=== PATIENT | male | born 1985 | race Caucasian/White ===

== ENCOUNTER 2020-03-31 21:22 | Outpatient (CLI) | payer SELFPAY | END 2020-03-31 21:23 | disposition critical access hospital (66) | LOC: EMS 21:22 | PROVIDERS: ATTEND Surgery | DX: R53.83 Other fatigue (principal); R50.9 Fever, unspecified; R19.7 Diarrhea, unspecified; R06.02 Shortness of breath; K92.1 Melena; R42 Dizziness and giddiness; R51 Headache; R20.2 Paresthesia of skin | CPT/HCPCS: A0425; A0429 ==

== ENCOUNTER 2020-03-31 21:41 | Inpatient (IN) | payer SELFPAY ==
--- NOTE | 2020-03-31 21:46 | ED Physician Documentation ---
History of Present Illness - Stated complaint Stated Complaint: SICK - History obtained from History obtained from: Patient, Family - Additonal information Additional information: 34-year-old male arrives by ambulance after feeling sick for 2 weeks. Patient presents with his the reports that he has become too weak to speak and then he was complaining of right-sided numbness first responders report a negative stroke scale. He is afebrile on arrival he reports diarrhea and fevers at home and that is been at home for the last 2 weeks he reports he is otherwise healthy and up-to-date on all of his shots. Review of Systems Constitutional: reports: Fever, Chills, Myalgias, Fatigue, Weight Loss, Sweats Eyes: reports: Reviewed and negative Ears: reports: Reviewed and negative Nose: reports: Reviewed and negative Throat: reports: Reviewed and negative Cardiac: reports: Reviewed and negative Respiratory: reports: Reviewed and negative GI: reports: Nausea, Vomiting, Diarrhea, Reviewed and negative : reports: Reviewed and negative Skin: reports: Reviewed and negative Musculoskeletal: reports: Reviewed and negative Neurologic: reports: Generalized weakness Psychiatric: reports: Reviewed and negative Endocrine: reports: Reviewed and negative Immunocompromised: reports: Reviewed and negative PD PAST MEDICAL HISTORY - Present Medications Home Medications: Ambulatory Orders Medication Instructions Recorded Confirmed No Known Home Medications 03/31/20 03/31/20 - Allergies Allergies/Adverse Reactions: Allergies Allergy/AdvReac Type Severity Reaction Status Date / Time No Known Drug Allergies Allergy Verified 03/31/20 22:29 PD ED PE NORMAL - Vitals Vital signs reviewed: Yes - General General: Alert and oriented X 3, No acute distress, Well developed/nourished - HEENT HEENT: Atraumatic, PERRL, EOMI, Ears normal, Moist mucous membranes, Dentition benign - Neck Neck: Supple, no meningeal sign, No adenopathy, Thyroid normal, No JVD, No bruit - Cardiac Cardiac: RRR, No murmur, Strong equal pulses - Respiratory Respiratory: No respiratory distress, Clear bilaterally - Abdomen Abdomen: Normal bowel sounds, Soft, Non tender, Non distended, No organomegaly - Derm Derm: Normal color, Warm and dry, No rash - Extremities Extremities: No deformity, No tenderness to palpate, Normal ROM s pain, No edema, No calf tenderness / cord - Neuro Neuro: Alert and oriented X 3, 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, No motor deficit, No sensory deficit, Normal speech, Other (NIH 0) - Psych Psych: Normal mood, Normal affect Results - Vitals Vitals: Vital Signs - 24 hr 03/31/20 04/01/20 04/01/20 21:47 00:20 00:35 Temperature 37.3 C 37.2 C 37.0 C Heart Rate 115 H 100 108 H Respiratory 18 17 18 Rate Blood Pressure 109/66 109/65 108/73 O2 Saturation 100 04/01/20 04/01/20 04/01/20 01:17 01:30 01:35 Temperature 36.9 C Heart Rate 105 H 96 Respiratory 16 18 15 Rate Blood Pressure 107/65 O2 Saturation 100 04/01/20 04/01/20 04/01/20 03:00 03:24 03:42 Temperature 37.1 C 37.2 C Heart Rate 87 91 88 Respiratory 17 18 20 Rate Blood Pressure 106/65 99/65 107/62 O2 Saturation 100 04/01/20 04/01/20 04/01/20 04:00 04:28 06:00 Temperature 37.1 C Heart Rate 82 83 84 Respiratory 16 16 14 Rate Blood Pressure 97/65 101/69 98/71 O2 Saturation 97 100 04/01/20 04/01/20 06:54 07:09 Temperature 36.7 C 36.8 C Heart Rate 78 76 Respiratory 14 16 Rate Blood Pressure 102/70 99/67 O2 Saturation Oxygen O2 Source Room air - Labs Labs: Microbiology 04/01/20 00:30 Occult Blood - Final Stool Laboratory Tests 03/31/20 03/31/20 03/31/20 21:55 21:55 21:55 WBC 8.1 RBC 1.25 L Hgb 3.3 L* Hct 11.3 L* MCV 90.4 MCH 26.4 L MCHC 29.2 L RDW 14.6 Plt Count 490 H MPV 9.3 Neut # (Auto) 4.3 Lymph # (Auto) 2.3 [place] # (Auto) 1.0 Eos # (Auto) 0.3 Baso # (Auto) 0.0 Absolute Nucleated RBC 0.38 Nucleated RBC % 4.7 Manual Slide Review Indicated Platelet Estimate INCREASED (>450,000) Platelet Morphology NORMAL APPEARANCE RBC Morph Micro Appear 1+ MICROCYTOSIS ESR PT 14.4 H INR 1.3 H APTT 23.7 L Sodium 134 L Potassium 3.4 L Chloride 103 Carbon Dioxide 21 Anion Gap 10.0 BUN 15 Creatinine 0.9 Estimated GFR (MDRD) 97 Glucose 111 H Lactic Acid Calcium 8.1 L Magnesium 2.4 Total Bilirubin 0.3 Direct Bilirubin 0.1 AST 18 ALT 19 Alkaline Phosphatase 43 Ammonia Total Creatine Kinase 61 Troponin I High Sens C-React Prot High Sens B-Natriuretic Peptide Total Protein 5.7 L Albumin 2.6 L Globulin 3.1 Lipase 27 TSH Urine Color Urine Clarity Urine pH Ur Specific Jenners Urine Protein Urine Glucose (UA) Urine Ketones Urine Occult Blood Urine Nitrite Urine Bilirubin Urine Urobilinogen Ur Leukocyte Esterase Ur Microscopic Review Urine Culture Comments Salicylates < 6.0 Urine Opiates Screen Ur Oxycodone Screen Urine Methadone Screen Ur Propoxyphene Screen Acetaminophen < 10 L Ur Barbiturates Screen Ur Tricyclics Screen Ur Phencyclidine Scrn Ur Amphetamine Screen U Methamphetamines Scrn U Benzodiazepines Scrn Urine Cocaine Screen U Cannabinoids Screen Ethyl Alcohol < 5.0 Influenza A (Rapid) Influenza B (Rapid) Group A Strep Rapid Blood Type Blood Type Recheck Antibody Screen Crossmatch IS Only 03/31/20 03/31/20 03/31/20 21:55 21:55 21:55 WBC RBC Hgb Hct MCV MCH MCHC RDW Plt Count MPV Neut # (Auto) Lymph # (Auto) [place] # (Auto) Eos # (Auto) Baso # (Auto) Absolute Nucleated RBC Nucleated RBC % Manual Slide Review Platelet Estimate Platelet Morphology RBC Morph Micro Appear ESR PT INR APTT Sodium Potassium Chloride Carbon Dioxide Anion Gap BUN Creatinine Estimated GFR (MDRD) Glucose Lactic Acid 1.1 Calcium Magnesium Total Bilirubin Direct Bilirubin AST ALT Alkaline Phosphatase Ammonia Total Creatine Kinase Troponin I High Sens 3.8 C-React Prot High Sens B-Natriuretic Peptide 127 H Total Protein Albumin Globulin Lipase TSH Urine Color Urine Clarity Urine pH Ur Specific Jenners Urine Protein Urine Glucose (UA) Urine Ketones Urine Occult Blood Urine Nitrite Urine Bilirubin Urine Urobilinogen Ur Leukocyte Esterase Ur Microscopic Review Urine Culture Comments Salicylates Urine Opiates Screen Ur Oxycodone Screen Urine Methadone Screen Ur Propoxyphene Screen Acetaminophen Ur Barbiturates Screen Ur Tricyclics Screen Ur Phencyclidine Scrn Ur Amphetamine Screen U Methamphetamines Scrn U Benzodiazepines Scrn Urine Cocaine Screen U Cannabinoids Screen Ethyl Alcohol Influenza A (Rapid) Influenza B (Rapid) Group A Strep Rapid Blood Type Blood Type Recheck Antibody Screen Crossmatch IS Only 03/31/20 03/31/20 03/31/20 21:55 21:55 21:55 WBC RBC Hgb Hct MCV MCH MCHC RDW Plt Count MPV Neut # (Auto) Lymph # (Auto) [place] # (Auto) Eos # (Auto) Baso # (Auto) Absolute Nucleated RBC Nucleated RBC % Manual Slide Review Platelet Estimate Platelet Morphology RBC Morph Micro Appear ESR PT INR APTT Sodium Potassium Chloride Carbon Dioxide Anion Gap BUN Creatinine Estimated GFR (MDRD) Glucose Lactic Acid Calcium Magnesium Total Bilirubin Direct Bilirubin AST ALT Alkaline Phosphatase Ammonia 11.0 Total Creatine Kinase Troponin I High Sens C-React Prot High Sens B-Natriuretic Peptide Total Protein Albumin Globulin Lipase TSH 2.17 Urine Color Urine Clarity Urine pH Ur Specific Jenners Urine Protein Urine Glucose (UA) Urine Ketones Urine Occult Blood Urine Nitrite Urine Bilirubin Urine Urobilinogen Ur Leukocyte Esterase Ur Microscopic Review Urine Culture Comments Salicylates Urine Opiates Screen Ur Oxycodone Screen Urine Methadone Screen Ur Propoxyphene Screen Acetaminophen Ur Barbiturates Screen Ur Tricyclics Screen Ur Phencyclidine Scrn Ur Amphetamine Screen U Methamphetamines Scrn U Benzodiazepines Scrn Urine Cocaine Screen U Cannabinoids Screen Ethyl Alcohol Influenza A (Rapid) Influenza B (Rapid) Group A Strep Rapid Blood Type Blood Type Recheck O POSITIVE Antibody Screen Crossmatch IS Only 03/31/20 03/31/20 03/31/20 22:23 22:23 22:30 WBC RBC Hgb Hct MCV MCH MCHC RDW Plt Count MPV Neut # (Auto) Lymph # (Auto) [place] # (Auto) Eos # (Auto) Baso # (Auto) Absolute Nucleated RBC Nucleated RBC % Manual Slide Review Platelet Estimate Platelet Morphology RBC Morph Micro Appear ESR PT INR APTT Sodium Potassium Chloride Carbon Dioxide Anion Gap BUN Creatinine Estimated GFR (MDRD) Glucose Lactic Acid Calcium Magnesium Total Bilirubin Direct Bilirubin AST ALT Alkaline Phosphatase Ammonia Total Creatine Kinase Troponin I High Sens C-React Prot High Sens B-Natriuretic Peptide Total Protein Albumin Globulin Lipase TSH Urine Color Urine Clarity Urine pH Ur Specific Jenners Urine Protein Urine Glucose (UA) Urine Ketones Urine Occult Blood Urine Nitrite Urine Bilirubin Urine Urobilinogen Ur Leukocyte Esterase Ur Microscopic Review Urine Culture Comments Salicylates Urine Opiates Screen Ur Oxycodone Screen Urine Methadone Screen Ur Propoxyphene Screen Acetaminophen Ur Barbiturates Screen Ur Tricyclics Screen Ur Phencyclidine Scrn Ur Amphetamine Screen U Methamphetamines Scrn U Benzodiazepines Scrn Urine Cocaine Screen U Cannabinoids Screen Ethyl Alcohol Influenza A (Rapid) Negative Influenza B (Rapid) Negative Group A Strep Rapid Negative Blood Type O POSITIVE Blood Type Recheck Antibody Screen NEGATIVE Crossmatch IS Only See Detail 03/31/20 03/31/20 04/01/20 23:20 23:50 04:35 WBC RBC Hgb 4.4 L* Hct MCV MCH MCHC RDW Plt Count MPV Neut # (Auto) Lymph # (Auto) [place] # (Auto) Eos # (Auto) Baso # (Auto) Absolute Nucleated RBC Nucleated RBC % Manual Slide Review Platelet Estimate Platelet Morphology RBC Morph Micro Appear ESR PT INR APTT Sodium Potassium Chloride Carbon Dioxide Anion Gap BUN Creatinine Estimated GFR (MDRD) Glucose Lactic Acid Calcium Magnesium Total Bilirubin Direct Bilirubin AST ALT Alkaline Phosphatase Ammonia Total Creatine Kinase Troponin I High Sens C-React Prot High Sens B-Natriuretic Peptide Total Protein Albumin Globulin Lipase TSH Urine Color YELLOW Urine Clarity CLEAR Urine pH 8.5 H Ur Specific Jenn[place] 1.010 Urine Protein NEGATIVE Urine Glucose (UA) NEGATIVE Urine Ketones NEGATIVE Urine Occult Blood NEGATIVE Urine Nitrite NEGATIVE Urine Bilirubin NEGATIVE Urine Urobilinogen 0.2 (NORMAL) Ur Leukocyte Esterase NEGATIVE Ur Microscopic Review NOT INDICATED Urine Culture Comments NOT INDICATED Salicylates Urine Opiates Screen NEGATIVE Ur Oxycodone Screen NEGATIVE Urine Methadone Screen NEGATIVE Ur Propoxyphene Screen NEGATIVE Acetaminophen Ur Barbiturates Screen NEGATIVE Ur Tricyclics Screen NEGATIVE Ur Phencyclidine Scrn NEGATIVE Ur Amphetamine Screen NEGATIVE U Methamphetamines Scrn NEGATIVE U Benzodiazepines Scrn NEGATIVE Urine Cocaine Screen NEGATIVE U Cannabinoids Screen NEGATIVE Ethyl Alcohol Influenza A (Rapid) Influenza B (Rapid) Group A Strep Rapid Blood Type Blood Type Recheck Antibody Screen Crossmatch IS Only 04/01/20 04/01/20 06:10 06:10 WBC RBC Hgb Hct MCV MCH MCHC RDW Plt Count MPV Neut # (Auto) Lymph # (Auto) [place] # (Auto) Eos # (Auto) Baso # (Auto) Absolute Nucleated RBC Nucleated RBC % Manual Slide Review Platelet Estimate Platelet Morphology RBC Morph Micro Appear ESR 79 H PT INR APTT Sodium Potassium Chloride Carbon Dioxide Anion Gap BUN Creatinine Estimated GFR (MDRD) Glucose Lactic Acid Calcium Magnesium Total Bilirubin Direct Bilirubin AST ALT Alkaline Phosphatase Ammonia Total Creatine Kinase Troponin I High Sens C-React Prot High Sens 30.3 B-Natriuretic Peptide Total Protein Albumin Globulin Lipase TSH Urine Color Urine Clarity Urine pH Ur Specific Jenners Urine Protein Urine Glucose (UA) Urine Ketones Urine Occult Blood Urine Nitrite Urine Bilirubin Urine Urobilinogen Ur Leukocyte Esterase Ur Microscopic Review Urine Culture Comments Salicylates Urine Opiates Screen Ur Oxycodone Screen Urine Methadone Screen Ur Propoxyphene Screen Acetaminophen Ur Barbiturates Screen Ur Tricyclics Screen Ur Phencyclidine Scrn Ur Amphetamine Screen U Methamphetamines Scrn U Benzodiazepines Scrn Urine Cocaine Screen U Cannabinoids Screen Ethyl Alcohol Influenza A (Rapid) Influenza B (Rapid) Group A Strep Rapid Blood Type Blood Type Recheck Antibody Screen Crossmatch IS Only PD MEDICAL DECISION MAKING - ED course Complexity details: reviewed results, re-evaluated patient, considered differential (Weakness. anemia. infectious. OD. renal failure. liver failure. ), d/w patient, d/w family ED course: Upon further evaluation patient states that he has been having abdominal pain and bloody diarrhea for months.He reports a family history of Crohn's disease.Patient's work-up is consistent withUnfortunately we do not have gastroenterology or any available ICU beds here at our hospital so this patient will be have to be transferred to higher level of care I have attempted to transfer this patient to [facility] ulcerative colitis. Patient will be transfused 2 units of blood [facility] in [facility] and none of them have any beds.Patient will remain in our emergency department pending transfer to higher level of care. - Consults Consults: Other (07: 14 am. made multiple patient to transfer this patient to hospital with ICU beds or step down beds, none available. spoke with surgeon dr. deleon who is willing to evaluatet this patient. spoke with dr. reese who will likely be able to admit this patient to our hospital. ) - Critical Care Time(min): 30 Time Includes: Direct patient care, Review records, Reassess patient, Document care, Coordinate care, Medical consult, Family consult for tx jul Data interpretation: CXR Procedures included in critical care time: Peripheral IV Procedures excluded from critical care time: EKG Departure - Departure Disposition: 66 [facility] DC/Xfer Clinical Impression: Colitis Anemia Qualifiers: Anemia type: other cause Other causes of anemia: other cause, not classified Qualified Code(s): D64.89 - Other specified anemias Condition: Stable
[2020-03-31] MEDS ORDERED: SODIUM CHLORIDE 0.9% 1,000 ML IV STA (22:06)
[2020-03-31 22:26] LABS: BASOPHILS % (AUTO) 0.1 %; EOSINOPHILS # (AUTO) 0.3 10^3/uL (0.0-0.7); EOSINOPHILS % (AUTO) 3.2 %; LYMPHOCYTES # (AUTO) 2.3 10^3/uL (1.5-3.5); LYMPHOCYTES % (AUTO) 27.7 %; MEAN CORPUSCULAR HEMOGLOBIN 26.4 pg (27.0-31.0); MEAN CORPUSCULAR HGB CONC 29.2 g/dL (32.0-36.0); MEAN CORPUSCULAR VOLUME 90.4 fL (80.0-94.0); MEAN PLATELET VOLUME 9.3 fL (7.4-11.4); MONOCYTES % (AUTO) 11.8 %; NEUTROPHILS # (AUTO) 4.3 10^3/uL (1.5-6.6); PLT - PLATELET COUNT 490 10^3/uL (130-450); RED BLOOD COUNT 1.25 10^6/uL (4.70-6.10); RED CELL DISTRIBUTION WIDTH 14.6 % (12.0-15.0); WHITE BLOOD COUNT 8.1 x10^3/uL (4.8-10.8)
[2020-03-31 22:29] LABS: HGB - HEMOGLOBIN 3.3 g/dL (14.0-18.0); INR 1.3 (0.8-1.2); PT - PROTHROMBIN TIME 14.4 secs (9.9-12.6)
[2020-03-31 22:36] LABS: PARTIAL THROMBOPLASTIN TIME 23.7 secs (24.9-33.3)
[2020-03-31 22:41] LABS: ACETAMINOPHEN < 10 ug/mL (10-30); ALBUMIN 2.6 g/dL (3.2-5.5); ALKALINE PHOSPHATASE 43 IU/L (42-121); ALT ALANINE AMINOTRANSFERASE 19 IU/L (10-60); AST ASPARTATE AMINOTRANSFERASE 18 IU/L (10-42); BILIRUBIN,DIRECT 0.1 mg/dL (0.1-0.5); BILIRUBIN,TOTAL 0.3 mg/dL (0.2-1.0); BUN - BLOOD UREA NITROGEN 15 mg/dL (6-20); CALCIUM 8.1 mg/dL (8.5-10.3); CARBON DIOXIDE - CO2 21 mmol/L (21-32); CHLORIDE 103 mmol/L (101-111); CK- CREATINE KINASE 61 IU/L (22-269); CREATININE 0.9 mg/dL (0.6-1.2); GLUCOSE 111 mg/dL (70-100); LIPASE 27 U/L (22-51); MAGNESIUM 2.4 mg/dL (1.7-2.8); SALICYLATE < 6.0 mg/dL; SODIUM 134 mmol/L (135-145); TOTAL PROTEIN 5.7 g/dL (6.7-8.2)
[2020-03-31 22:56] LABS: PLATELET ESTIMATE, MANUAL INCREASED (>450,000) (NORMAL); PLATELET MORPHOLOGY NORMAL APPEARANCE (NORMAL)
[2020-03-31 23:01] LABS: RAPID STREP SCREEN Negative (Negative)
[2020-03-31] MEDS ORDERED: IOVERSOL 320 100 ML VIAL IVP ONE (23:11)
[2020-03-31 23:26] LABS: BILIRUBIN,URINE NEGATIVE (NEGATIVE); GLUCOSE, URINE (UA) NEGATIVE (NEGATIVE); KETONES,URINE (UA) NEGATIVE (NEGATIVE); LEUKOCYTE ESTERASE, URINE NEGATIVE (NEGATIVE); NITRITE,URINE NEGATIVE (NEGATIVE); OCCULT BLOOD,URINE NEGATIVE (NEGATIVE); PH,URINE 8.5 PH (5.0-7.5); PROTEIN,URINE NEGATIVE (NEGATIVE); UROBILINOGEN,URINE 0.2 (NORMAL) E.U./dL (NORMAL)
[2020-03-31 23:29] LABS: CLARITY,URINE CLEAR (CLEAR)
[2020-04-01 00:04] LABS: MUDS CUTOFF CONCENTRATIONS CUTOFF CONC BELOW:
[2020-04-01 00:13] LABS: AMPHETAMINE SCREEN,URINE NEGATIVE (NEGATIVE); BENZODIAZEPINES SCREEN, URINE NEGATIVE (NEGATIVE); COCAINE SCREEN URINE NEGATIVE (NEGATIVE); METHADONE SCREEN, URINE NEGATIVE (NEGATIVE); METHAMPHETAMINES SCREEN, URINE NEGATIVE (NEGATIVE); OPIATE SCREEN, URINE NEGATIVE (NEGATIVE); OXYCODONE SCREEN, URINE NEGATIVE (NEGATIVE); PROPOXYPHENE SCREEN, URINE NEGATIVE (NEGATIVE); TRICYCLIC ANTIDEPRESSANT,URINE NEGATIVE (NEGATIVE)
[2020-04-01] MEDS ORDERED: IOVERSOL 320 100 ML VIAL IVP ONE (01:08)
[2020-04-01] MEDS ORDERED: ACETAMINOPHEN 1,000 MG/100 ML 100 ML IV ONE (03:00)
[2020-04-01] MEDS ORDERED: MORPHINE 2 MG/ML CARPUJECT IVP STA (03:47)
[2020-04-01] MEDS ORDERED: ONDANSETRON 4 MG/2 ML VIAL IVP STA (03:47)
[2020-04-01] MEDS ORDERED: methylPREDNISolone SUCCINATE 125 MG/2 ML VIAL IVP STA (04:54)
[2020-04-01] MEDS ORDERED: MORPHINE 2 MG/ML CARPUJECT IVP PRN (07:15)
[2020-04-01] MEDS ORDERED: ONDANSETRON ODT 4 MG TABLET TL PRN (07:15)
[2020-04-01] MEDS ORDERED: ONDANSETRON 4 MG/2 ML VIAL IVP PRN (07:15)
--- NOTE | 2020-04-01 08:11 | CT Report ---
PROCEDURE: HEAD WO INDICATIONS: right sided numbness TECHNIQUE: Noncontrast 4.5 mm thick angled axial sections acquired from the foramen magnum to the vertex. For r adiation dose reduction, the following was used: automated exposure control, adjustment of mA and/or kV according to patient size. COMPARISON: None. FINDINGS: Image quality: Excellent. CSF spaces: Basal cisterns are patent. No extra-axial fluid collections. Ventricles are normal in size and shape. Brain: No midline shift. No intracranial masses or hemorrhage. Dumont-white matter interface is norm al. Skull and face: Calvarium and visualized facial bones are intact, without suspicious lesions. Sinuses: Visualized sinuses and mastoids are clear. IMPRESSION: 1. No acute intracranial process. The above findings are concordant with preliminary report. Reviewed by: Joselyn Smith MD on 04/01/2020 8:10 AM PDT Approved by: Joselyn Smith MD on 04/01/2020 8:10 AM PDT Station ID: [id number]
--- NOTE | 2020-04-01 08:31 | CT Report ---
PROCEDURE: Abdomen/Pelvis W INDICATIONS: abd pain CONTRAST: IV CONTRAST: Optiray 320 ml: 100 PO CONTRAST: *NO PO CONTRAST TECHNIQUE: After the administration of contrast, 5 mm thick sections acquired from the diaphragms to the sym physis. 5 mm thick coronal and sagittal reformats were acquired. For radiation dose reduction, the following was used: automated exposure control, adjustment of mA and/or kV according to patient size . COMPARISON: None. FINDINGS: Image quality: Excellent. ABDOMEN: Lung bases: Lung bases are clear. Heart size is normal. Solid organs: Liver and spleen are normal in size and enhancement. Gallbladder appears normal Bili nasir system is non dilated. Pancreas enhances normally. No adrenal nodules. Kidneys demonstrate nor mal size and enhancement, without hydronephrosis. Peritoneum and bowel: Bowel loops demonstrate normal wall thickness and caliber. No free fluid or a ir. Please see pelvic section below regarding active inflammation involving the sigmoid colon and re ctum areas. Nodes and vessels: No retroperitoneal or mesenteric adenopathy by size criteria. Aorta and inferior vena cava are normal in size. Miscellaneous: No ventral hernias. PELVIS: Genitourinary: Bladder wall thickness is normal. Miscellaneous: No inguinal hernias or adenopathy. There is abnormal mucosal thickening and enhancem ent, and also mural thickening involving the sigmoid colon and extending contiguously into the rectum . Fluid within the sigmoid and rectum is present, and a pericolonic/intramural abscess is not identif ied. More superiorly no definite colitis is found. There is bilateral mild colonic obstipation. Bones: No suspicious bony lesions. No vertebral body compression fractures. IMPRESSION: The sigmoid colon and rectum show contiguous inflammatory changes that are moderate in s everity. Fluid within these portions of the colon is present, and a definite pericolonic or intramura l abscess is not found. Please note that if there is a clinical concern for presence of intramural ab scess MR scanning with contrast targeted to the rectum and sigmoid colon may be warranted. Mild colonic obstipation elsewhere on the right and left. Reviewed by: Claudio Granados MD on 04/01/2020 8:30 AM PDT Approved by: Claudio Granados MD on 04/01/2020 8:30 AM PDT Station ID: [id number]
--- NOTE | 2020-04-01 09:22 | XRAY Report ---
PROCEDURE: Chest 1 View X-Ray INDICATIONS: sob TECHNIQUE: One view of the chest was acquired. COMPARISON: None FINDINGS: Surgical changes and devices: None. Lungs and pleura: No pleural effusions or pneumothorax. Lungs are clear. Mediastinum: Mediastinal contours appear normal. Heart size is normal. Bones and chest wall: No suspicious bony lesions. Overlying soft tissues appear unremarkable. IMPRESSION: No acute pulmonary process. Reviewed by: Joselyn Smith MD on 04/01/2020 9:20 AM PDT Approved by: Joselyn Smith MD on 04/01/2020 9:20 AM PDT Station ID: [id number]
--- NOTE | 2020-04-01 10:41 | PHARMACY PROGRESS NOTE ---
- Best Possible Medication History Admit Date and Time: 04/01/20 0715 Processed by: Pharmacy Medication History completed: Yes Patient Interview: Completed Secondary Source(s): Pharmacy records (PATIENT INTERVIEWED BY [employer] MACHINE. PATIENT ABLE TO CONFIRM HOME MEDICATIONS. PATIENT ONLY TAKES OTCs AT HOME ), Insurance records As the person ultimately responsible for medication therapy, providers are able to order a medication from an existing home medication list in [facility] via the "Reconcile Routine" prior to Confirmation of that medication by systems support specialist. Such practice is discouraged except when the physician, in their clinical judgment, deems that a medical need exists for a medication without regard to previous use.
[2020-04-01] MEDS: PANTOPRAZOLE 40 MG VIAL IVP SCH (11:01)
[2020-04-01] MEDS: SODIUM CHLORIDE 0.9% 1,000 ML IV SCH ×2 (11:01→20:50)
[2020-04-01] MEDS: SODIUM CHLORIDE FLUSH 0.9% 10 ML SYRINGE IVP SCH ×2 (11:02→16:16)
--- NOTE | 2020-04-01 12:27 | HISTORY & PHYSICAL EXAMINATION ---
Chief Complaint - Chief Complaint Chief Complaint: R sided numbness/tingling spread to face, BRBPR History of Present Illness - Admitted From Admitted From:: home via EMS - History Obtained From Records Reviewed: [facility] History obtained from: patient Exam Limitations: none - History of Present Illness HPI Comment/Other: Patient is a 34yo male admitted from home via EMS through the ED for severe anemia and bright red blood per rectum. The patient has a history significant for hemorrhoids and abdominal cramping with stooling starting at the age of 16. Over the last couple of months the patient has noted a change in his diet to be less frequent and less healthy, which he attributes to a flare in his hemorrhoids. For the past month he has noted increasing blood in the toilet after having a BM, describing it to be raissa, bright red and fills the toilet. The patient also describes a constant dull aching across his lower abdomen which intensifies to sharp cramping while defecating. He reports having to strain to have a BM. In this past two weeks the patient has been more constipated, having only one BM every 2-3 days when normally he has one normal soft formed BM daily. Recently in the beginning of February he had dental work done, after which he was prescribed opioids which he attributes to initiating his constipation. He reports constant hemorrhoids for which he has to use his finger to replace them into his rectum after each BM. Two weeks ago he began to experience headaches which were constant and unrelieved with medication, intensifying gradually over the past two weeks. He became feverish approximately 1 week ago with the highest temp being 104 (measured at home). He attempted to treat this with ice packs and tylenol and was successful. Yesterday he began to feel numbness and tingling in his right arm, spreading to his chest and eventually his face, at that point he felt it necessary to call EMS. PE significant for fullness in abdomen, generalized pallor with reduced cap refill in fingers and toes, and dry mucous membranes. History - Past Medical History Cardiovascular: reports: None Respiratory: reports: None Neuro: reports: None Endocrine/Autoimmune: reports: None GI: reports: Hemorrhoids (DX at age 16) : reports: None HEENT: reports: None Psych: reports: None Musculoskeletal: reports: None Derm: reports: None MRSA Hx?: No Other Past Medical History: Abdominal cramping with defecating beginning at age 16 - Family & Social History Family History: Mother: COPD/Emphysema, Father: , Brother: Alive and Well Family History Comment/Other: Mother-alive, hx of ulcerative colitis, polyps and COPD. Father-passed from lung ca at age 73 in 2017. Brother alive and well, lives in [place] Living arrangement: At home Living Situation: With spouse/s.o. Social History Notes: The patient lives at home with , recently , no children. 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 Reports not having consumed any alcohol in past month, prior to that he would have an occasional drink. Denies any recent tobacco use, previously would use a friends vape pen at social gatherings, has not done this in 2 years. - Substance History Use: Uses substance without health or social issues: NONE - POLST Patient has POLST: No POLST Status: Full Code Meds/Allgy - Home Medications Home Medications: Ambulatory Orders Medication Instructions Recorded Confirmed Acetaminophen [Tylenol Extra 500 mg PO PRN PRN 04/01/20 04/01/20 Strength] Cholecalciferol (Vitamin D3) 25 mcg PO DAILY 04/01/20 04/01/20 [Vitamin D3] Echinacea Purp [place] Rt 62.5 mg PO DAILY 04/01/20 04/01/20 [Echinacea Extract 62.5 mg Cap] Multivit-Minerals/Folic Acid 1 tab PO DAILY 04/01/20 04/01/20 [Adult One Daily Multivit Tab] [place]-3 Fatty Acids [Fish Oil 1,000 mg PO DAILY 04/01/20 04/01/20 Concentrate] - Allergies Allergies/Adverse Reactions: Allergies Allergy/AdvReac Type Severity Reaction Status Date / Time No Known Drug Allergies Allergy Verified 03/31/20 22:29 Review of Systems - Constitutional Constitutional: reports: Fatigue, Fever (highest self-recorded at home: 104), Weakness - Eyes Eyes: reports: Blurred vision (occasional blurred vision when severe weakness set in about a week ago.) - Cardiovascular Cariovascular: reports: Lightheadedness (reported in association with his weakness over past week) - Respiratory Respiratory: reports: SOB with exertion (Began 1 week ago) - Gastrointestinal Gastrointestinal: reports: Abdominal pain, Constipation, Rectal bleeding (Pain is a dull aching which signifies the need to defecate with increasing in severity to cramping while having BM. Recently having constipation x1 week, bright red blood per rectum began over a month ago and has increased to raissa blood in gross amounts.), Bloody stools - Neurological Neurological: reports: Numbness (reports recent numbness and tingling in his right arm, spreading to his chest and face prompting to call ems, however has resolved at time of assessment.) - All Other Systems All Other Systems: reports: Reviewed and negative Prior Level of Functionality: Prior to the new onset weakness and fatigue had no physical deficits, independent with ADLS, did not require any assistance to ambulate. Exam - Vital Signs Reviewed Vital Signs: Yes Vital Signs: Vital Signs x48h Temp Pulse Pulse Resp BP BP Pulse Ox 04/01/20 10:20 37.0 C 75 15 117/66 98 04/01/20 09:59 79 14 105/69 100 04/01/20 09:57 37.4 C 75 14 94/58 L 04/01/20 09:03 37.4 C 77 15 103/70 04/01/20 08:26 37.2 C 78 16 109/74 04/01/20 08:18 37.1 C 86 14 104/70 04/01/20 08:14 37.1 C 74 14 104/70 04/01/20 07:59 36.7 C 76 18 110/69 04/01/20 07:46 36.8 C 76 12 110/74 100 04/01/20 07:09 36.8 C 76 16 99/67 04/01/20 06:54 36.7 C 78 14 102/70 04/01/20 06:00 84 14 98/71 100 04/01/20 04:28 37.1 C 83 16 101/69 04/01/20 04:00 82 16 97/65 97 04/01/20 03:42 37.2 C 88 20 107/62 - Physical Exam General Appearance: positive: No acute distress, Alert Eyes Bilateral: positive: Normal inspection ENT: positive: Dry mucous membranes Neck: positive: Nml inspection Respiratory: positive: Chest non-tender, No respiratory distress, Breath sounds nml Cardiovascular: positive: Regular rate & rhythm, No murmur, No gallop Peripheral Pulses: positive: 2+ Abdomen: positive: Nml bowel sounds, Tenderness (mild dullness in RLQ increased with palpitation) Skin: positive: Pallor (generalized pallow, lips dry/pale.) Extremities: positive: Non-tender, Full ROM, Nml appearance Neurologic/Psychiatric: positive: Oriented x3, Motor nml Conclusion/Plan - Problem List (1) Anemia Conclusion/Plan: Ddx: Mechanical vs non-mechanical anemia (blood loss induced anemia vs. hemolytic anemia vs. inflammation induced anemia vs. B12/folate/iron deficiency anemia) The patient's hgb was 3.3 upon arrival to ED, aline to 4.4 after 4 units of PRBCs. RBC count is 1.25, while MCV is 90.4. At this time it is undetermined if anemia is from acute blood loss or from underlying disease process. Pt appears generally pale with dry mucous membranes, no bruising or open wounds noted. Denies any history of chronic disease with the exception of hemorrhoids. Family hx of UC. Reports severe weakness and SOB upon exertion. Vital signs WNL, is not requiring supplemental oxygen at this time. Otherwise a generally healthy individual prior to this event. Plan: -Transfuse 2 more uPRBCs -Recheck CBC after transfusion complete -Obtain anemia panel: retic count, folate, B12 -Monitor vitals for s/s of worsening anemia or increased oxygen requirements Qualifiers: Anemia type: other cause Other causes of anemia: other cause, not classified Qualified Code(s): D64.89 - Other specified anemias (2) Bright red blood per rectum Conclusion/Plan: Ddx:external hemorrhoids, internal hemorrhoids, ulcerative colitis, IBD Pt reports raissa gross amounts of blood with each stooling which began over a month ago. He also reports to occasionally pass some clots. His stool he reports to be mostly formed, otherwise is difficult to visualize due to amount of blood. He was diagnosed with external hemorrhoids at the age of 16. In his adult years, when hemorroids are bad he reports having to digitally push them into his rectum after defecating. There is a history of UC and polyps from his mother. CT of abd and pelvis show significant inflammation in the sigmoid and rectum that is co ntinuous and moderate in severity. This patient will need a colonoscopy to determine etiology and source of his bleeding. Plan: -consult surgery for colonoscopy -NPO -Monitor i/os for excess volume loss -monitor vitals for s/s of excessive volume loss (3) Abdominal pain Conclusion/Plan: Pt describes the pain as a continuous dull aching across his lower abdomen signifying he needs to have a BM. However that pain intensifies to a severe cramping when defecating. Narcotics should be avoided due to his recent reports of constipation which may have triggers his symptoms. NSAIDS should be avoided to prevent further GI irritation. Plan: -Protonix 40mg IVP -Acetaminophen 650mg PO PRN q4hr for pain -NPO Qualifiers: Abdominal location: lower abdomen, unspecified Qualified Code(s): R10.30 - Lower abdominal pain, unspecified (4) Fever Conclusion/Plan: Self reported fevers while at home, highest being 104F. Patient has not had any fevers since arriving to . Recent dental work at the beginning of February may have resulted in an undiagnosed infection. WBC 8.1, ESR 79. Plan: -Acetaminophen 650mg PO PRN q6hr for temp >38C -Monitor temp -Repeat CBC in AM - Lab Results Lab results reviewed: Yes Scott Bones: 04/01/20 04:35 03/31/20 21:55 - Diagnostic Imaging Results Diagnostic Imaging Results: positive: See rad report Core Measures - Anticipated LOS I expect patient to be DC'd or transferred within 96 hours.: Yes - DVT/VTE - Prophylaxis VTE/DVT Device ordered at admit?: Yes VTE/DVT Prophylaxis med ordered at admit?: No Not Ordered - Medical Reason: Contraindicated (Pt is currently bleeding with unknown source.) - Stroke - Rehab Assessment Rehab services assessment to be ordered?: No - AMI - Statin at Admit Aspirin Prescribed on Admit: No
[2020-04-01 14:30] LABS: ABSOLUTE RETICS # AUTO 0.08 10^6/uL (0.020-0.110); HGB - HEMOGLOBIN 7.1 g/dL (14.0-18.0); MEAN CORPUSCULAR HEMOGLOBIN 28.9 pg (27.0-31.0); MEAN CORPUSCULAR HGB CONC 32.1 g/dL (32.0-36.0); MEAN CORPUSCULAR VOLUME 89.8 fL (80.0-94.0); MEAN PLATELET VOLUME 8.8 fL (7.4-11.4); RED BLOOD COUNT 2.44 10^6/uL (4.70-6.10); RED BLOOD COUNT 2.46 10^6/uL (4.70-6.10); RED CELL DISTRIBUTION WIDTH 14.9 % (12.0-15.0); WHITE BLOOD COUNT 8.2 x10^3/uL (4.8-10.8)
[2020-04-01 14:56] LABS: % IRON SATURATION 5 % (20-50); IRON 18 ug/dL (45-182); TOTAL IRON BINDING CAPACITY 349 ug/dL (250-450); TRANSFERRIN 249 mg/dL (180-329)
[2020-04-01 15:07] LABS: FERRITIN 8.2 ng/mL (23.9-336.2)
[2020-04-01] MEDS ORDERED: ACETAMINOPHEN 325 MG TABLET PO PRN (15:38)
--- NOTE | 2020-04-01 18:23 | HISTORY & PHYSICAL EXAMINATION ---
Chief Complaint - Chief Complaint Chief Complaint: Feeling ill and few months bloody stool/ blood per rectum Abdominal Pain HPI - History Obtained From History obtained from: Patient, Family Exam limitations: No limitations - History of Present Illness Severity at the worst: Moderate Pain Quality: Aching, Cramping Timing: Gradual onset Duration: Other (few months) PMH/PSH - Past Medical History Cardiovascular: positive: None Respiratory: positive: None Neuro: positive: None Endocrine/Autoimmune: positive: None GI: positive: Hemorrhoids (DX at age 16) : positive: None HEENT: positive: None Psych: positive: None Musculoskeletal: positive: None Derm: positive: None MRSA Hx?: No Other Past Medical History: Abdominal cramping with defecating beginning at age 16 Social & Family Hx - Social History Does the pt smoke?: No Smoking Status: Former smoker Does the pt drink ETOH?: Yes Does the pt have substance abuse?: No - POLST Patient has POLST: No POLST Status: Full Code - Family History Family History Comment/Other: mother has ulcerative colitis Meds/Allgy - Home Medications Home Medications: Ambulatory Orders Medication Instructions Recorded Confirmed Acetaminophen [Tylenol Extra 500 mg PO PRN PRN 04/01/20 04/01/20 Strength] Cholecalciferol (Vitamin D3) 25 mcg PO DAILY 04/01/20 04/01/20 [Vitamin D3] Echinacea Purp Cadott,E.pelon Rt 62.5 mg PO DAILY 04/01/20 04/01/20 [Echinacea Extract 62.5 mg Cap] Multivit-Minerals/Folic Acid 1 tab PO DAILY 04/01/20 04/01/20 [Adult One Daily Multivit Tab] [place]-3 Fatty Acids [Fish Oil 1,000 mg PO DAILY 04/01/20 04/01/20 Concentrate] - Allergies Allergies/Adverse Reactions: Allergies Allergy/AdvReac Type Severity Reaction Status Date / Time No Known Drug Allergies Allergy Verified 03/31/20 22:29 Review of Systems - Constitutional Constitutional: reports: Malaise - Neurological Neurological: reports: Headache (10 pt ros as above and below otherwise unremarkable. chronic " hemorrhoid problems" past occasional cramping and bloating.) Exam - Vital Signs Vital Signs: Vital Signs x48h Temp Pulse Pulse Resp BP BP Pulse Ox 04/01/20 17:01 84 17 114/67 04/01/20 17:00 80 84 12 114/67 99 04/01/20 16:30 74 16 04/01/20 16:11 81 21 113/66 04/01/20 16:10 76 17 04/01/20 16:00 36.8 C 72 76 14 113/66 96 04/01/20 15:52 36.8 C 04/01/20 15:30 75 11 L 04/01/20 15:00 77 16 105/57 L 98 04/01/20 14:00 77 16 105/57 L 98 04/01/20 13:00 36.8 C 74 13 107/60 97 04/01/20 12:00 72 14 107/63 98 04/01/20 11:01 82 19 114/71 04/01/20 10:45 81 32 H 121/73 04/01/20 10:31 75 19 110/62 04/01/20 10:22 81 14 117/66 - Physical Exam General Appearance: positive: No acute distress, Alert Eyes Bilateral: positive: Normal inspection, PERRL, EOMI ENT: positive: No signs of dehydration, Other (just received 4 units prbc) Neck: positive: Nml inspection, No JVD Respiratory: positive: No respiratory distress Abdomen: positive: No distention (benign abdomen with minimal lower tenderness to deep palpation) Results - Lab Results Fish Bones: 04/01/20 14:20 03/31/20 21:55 Other Lab Results: Lab Results x24hrs 04/01/20 04/01/20 04/01/20 Range/Units 14:20 14:20 14:20 WBC (4.8-10.8) x10^3/uL RBC (4.70-6.10) 10^6/uL Hgb (14.0-18.0) g/dL Hct (42.0-52.0) % MCV (80.0-94.0) fL MCH (27.0-31.0) pg MCHC (32.0-36.0) g/dL RDW (12.0-15.0) % Plt Count (130-450) 10^3/uL MPV (7.4-11.4) fL Reticulocyte % (Auto) (0.5-2.3) % Neut # (Auto) (1.5-6.6) 10^3/uL Lymph # (Auto) (1.5-3.5) 10^3/uL [place] # (Auto) (0.0-1.0) 10^3/uL Eos # (Auto) (0.0-0.7) 10^3/uL Baso # (Auto) (0.0-0.1) 10^3/uL Absolute Nucleated RBC x10^3/uL Nucleated RBC % /100WBC Manual Slide Review Platelet Estimate (NORMAL) Platelet Morphology (NORMAL) RBC Morph Micro Appear (NORMAL) ESR (0-15) mm/Hr Absolute Retic (0.020-0.110) 10^6/uL PT (9.9-12.6) secs INR (0.8-1.2) APTT (24.9-33.3) secs Sodium (135-145) mmol/L Potassium (3.5-5.0) mmol/L Chloride (101-111) mmol/L Carbon Dioxide (21-32) mmol/L Anion Gap (6-13) BUN (6-20) mg/dL Creatinine (0.6-1.2) mg/dL Estimated GFR (MDRD) (>89) Glucose (70-100) mg/dL Lactic Acid (0.5-2.2) mmol/L Calcium (8.5-10.3) mg/dL Magnesium (1.7-2.8) mg/dL Iron 18 L (45-182) ug/dL TIBC 349 (250-450) ug/dL % Saturation 5 L (20-50) % Transferrin 249 (180-329) mg/dL Ferritin 8.2 L (23.9-336.2) ng/mL Total Bilirubin (0.2-1.0) mg/dL Direct Bilirubin (0.1-0.5) mg/dL AST (10-42) IU/L ALT (10-60) IU/L Alkaline Phosphatase (42-121) IU/L Ammonia (7-35) umol/L Lactate Dehydrogenase 101 (91-225) IU/L Total Creatine Kinase (22-269) IU/L Troponin I High Sens (2.3-19.7) ng/L C-React Prot High Sens mg/L B-Natriuretic Peptide (5-100) pg/mL Total Protein (6.7-8.2) g/dL Albumin (3.2-5.5) g/dL Globulin (2.1-4.2) g/dL Lipase (22-51) U/L Vitamin B12 1437 H (180-914) pg/mL TSH (0.34-5.60) uIU/mL Urine Color Urine Clarity (CLEAR) Urine pH (5.0-7.5) PH Ur Specific [place] (1.002-1.030) Urine Protein (NEGATIVE) mg/dL Urine Glucose (UA) (NEGATIVE) mg/dL Urine Ketones (NEGATIVE) mg/dL Urine Occult Blood (NEGATIVE) Urine Nitrite (NEGATIVE) Urine Bilirubin (NEGATIVE) Urine Urobilinogen (NORMAL) E.U./dL Ur Leukocyte Esterase (NEGATIVE) Ur Microscopic Review Urine Culture Comments Nasal Screen MRSA (PCR) (NEGATIVE) Salicylates mg/dL Urine Opiates Screen (NEGATIVE) Ur Oxycodone Screen (NEGATIVE) Urine Methadone Screen (NEGATIVE) Ur Propoxyphene Screen (NEGATIVE) Acetaminophen (10-30) ug/mL Ur Barbiturates Screen (NEGATIVE) Ur Tricyclics Screen (NEGATIVE) Ur Phencyclidine Scrn (NEGATIVE) Ur Amphetamine Screen (NEGATIVE) U Methamphetamines Scrn (NEGATIVE) U Benzodiazepines Scrn (NEGATIVE) Urine Cocaine Screen (NEGATIVE) U Cannabinoids Screen (NEGATIVE) Ethyl Alcohol mg/dL Influenza A (Rapid) (Negative) Influenza B (Rapid) (Negative) Group A Strep Rapid (Negative) Blood Type Blood Type Recheck Antibody Screen Crossmatch IS Only 04/01/20 04/01/20 04/01/20 Range/Units 14:20 14:20 10:50 WBC 8.2 (4.8-10.8) x10^3/uL RBC 2.44 L 2.46 L (4.70-6.10) 10^6/uL Hgb 7.1 L (14.0-18.0) g/dL Hct 22.1 L (42.0-52.0) % MCV 89.8 (80.0-94.0) fL MCH 28.9 (27.0-31.0) pg MCHC 32.1 (32.0-36.0) g/dL RDW 14.9 (12.0-15.0) % Plt Count 390 (130-450) 10^3/uL MPV 8.8 (7.4-11.4) fL Reticulocyte % (Auto) 3.26 H (0.5-2.3) % Neut # (Auto) (1.5-6.6) 10^3/uL Lymph # (Auto) (1.5-3.5) 10^3/uL [place] # (Auto) (0.0-1.0) 10^3/uL Eos # (Auto) (0.0-0.7) 10^3/uL Baso # (Auto) (0.0-0.1) 10^3/uL Absolute Nucleated RBC x10^3/uL Nucleated RBC % /100WBC Manual Slide Review Platelet Estimate (NORMAL) Platelet Morphology (NORMAL) RBC Morph Micro Appear (NORMAL) ESR (0-15) mm/Hr Absolute Retic 0.080 (0.020-0.110) 10^6/uL PT (9.9-12.6) secs INR (0.8-1.2) APTT (24.9-33.3) secs Sodium (135-145) mmol/L Potassium (3.5-5.0) mmol/L Chloride (101-111) mmol/L Carbon Dioxide (21-32) mmol/L Anion Gap (6-13) BUN (6-20) mg/dL Creatinine (0.6-1.2) mg/dL Estimated GFR (MDRD) (>89) Glucose (70-100) mg/dL Lactic Acid (0.5-2.2) mmol/L Calcium (8.5-10.3) mg/dL Magnesium (1.7-2.8) mg/dL Iron (45-182) ug/dL TIBC (250-450) ug/dL % Saturation (20-50) % Transferrin (180-329) mg/dL Ferritin (23.9-336.2) ng/mL Total Bilirubin (0.2-1.0) mg/dL Direct Bilirubin (0.1-0.5) mg/dL AST (10-42) IU/L ALT (10-60) IU/L Alkaline Phosphatase (42-121) IU/L Ammonia (7-35) umol/L Lactate Dehydrogenase (91-225) IU/L Total Creatine Kinase (22-269) IU/L Troponin I High Sens (2.3-19.7) ng/L C-React Prot High Sens mg/L B-Natriuretic Peptide (5-100) pg/mL Total Protein (6.7-8.2) g/dL Albumin (3.2-5.5) g/dL Globulin (2.1-4.2) g/dL Lipase (22-51) U/L Vitamin B12 (180-914) pg/mL TSH (0.34-5.60) uIU/mL Urine Color Urine Clarity (CLEAR) Urine pH (5.0-7.5) PH Ur Specific [place] (1.002-1.030) Urine Protein (NEGATIVE) mg/dL Urine Glucose (UA) (NEGATIVE) mg/dL Urine Ketones (NEGATIVE) mg/dL Urine Occult Blood (NEGATIVE) Urine Nitrite (NEGATIVE) Urine Bilirubin (NEGATIVE) Urine Urobilinogen (NORMAL) E.U./dL Ur Leukocyte Esterase (NEGATIVE) Ur Microscopic Review Urine Culture Comments Nasal Screen MRSA (PCR) NEGATIVE (NEGATIVE) Salicylates mg/dL Urine Opiates Screen (NEGATIVE) Ur Oxycodone Screen (NEGATIVE) Urine Methadone Screen (NEGATIVE) Ur Propoxyphene Screen (NEGATIVE) Acetaminophen (10-30) ug/mL Ur Barbiturates Screen (NEGATIVE) Ur Tricyclics Screen (NEGATIVE) Ur Phencyclidine Scrn (NEGATIVE) Ur Amphetamine Screen (NEGATIVE) U Methamphetamines Scrn (NEGATIVE) U Benzodiazepines Scrn (NEGATIVE) Urine Cocaine Screen (NEGATIVE) U Cannabinoids Screen (NEGATIVE) Ethyl Alcohol mg/dL Influenza A (Rapid) (Negative) Influenza B (Rapid) (Negative) Group A Strep Rapid (Negative) Blood Type Blood Type Recheck Antibody Screen Crossmatch IS Only 04/01/20 04/01/20 04/01/20 Range/Units 06:10 06:10 04:35 WBC (4.8-10.8) x10^3/uL RBC (4.70-6.10) 10^6/uL Hgb 4.4 L* (14.0-18.0) g/dL Hct (42.0-52.0) % MCV (80.0-94.0) fL MCH (27.0-31.0) pg MCHC (32.0-36.0) g/dL RDW (12.0-15.0) % Plt Count (130-450) 10^3/uL MPV (7.4-11.4) fL Reticulocyte % (Auto) (0.5-2.3) % Neut # (Auto) (1.5-6.6) 10^3/uL Lymph # (Auto) (1.5-3.5) 10^3/uL [place] # (Auto) (0.0-1.0) 10^3/uL Eos # (Auto) (0.0-0.7) 10^3/uL Baso # (Auto) (0.0-0.1) 10^3/uL Absolute Nucleated RBC x10^3/uL Nucleated RBC % /100WBC Manual Slide Review Platelet Estimate (NORMAL) Platelet Morphology (NORMAL) RBC Morph Micro Appear (NORMAL) ESR 79 H (0-15) mm/Hr Absolute Retic (0.020-0.110) 10^6/uL PT (9.9-12.6) secs INR (0.8-1.2) APTT (24.9-33.3) secs Sodium (135-145) mmol/L Potassium (3.5-5.0) mmol/L Chloride (101-111) mmol/L Carbon Dioxide (21-32) mmol/L Anion Gap (6-13) BUN (6-20) mg/dL Creatinine (0.6-1.2) mg/dL Estimated GFR (MDRD) (>89) Glucose (70-100) mg/dL Lactic Acid (0.5-2.2) mmol/L Calcium (8.5-10.3) mg/dL Magnesium (1.7-2.8) mg/dL Iron (45-182) ug/dL TIBC (250-450) ug/dL % Saturation (20-50) % Transferrin (180-329) mg/dL Ferritin (23.9-336.2) ng/mL Total Bilirubin (0.2-1.0) mg/dL Direct Bilirubin (0.1-0.5) mg/dL AST (10-42) IU/L ALT (10-60) IU/L Alkaline Phosphatase (42-121) IU/L Ammonia (7-35) umol/L Lactate Dehydrogenase (91-225) IU/L Total Creatine Kinase (22-269) IU/L Troponin I High Sens (2.3-19.7) ng/L C-React Prot High Sens 30.3 mg/L B-Natriuretic Peptide (5-100) pg/mL Total Protein (6.7-8.2) g/dL Albumin (3.2-5.5) g/dL Globulin (2.1-4.2) g/dL Lipase (22-51) U/L Vitamin B12 (180-914) pg/mL TSH (0.34-5.60) uIU/mL Urine Color Urine Clarity (CLEAR) Urine pH (5.0-7.5) PH Ur Specific [place] (1.002-1.030) Urine Protein (NEGATIVE) mg/dL Urine Glucose (UA) (NEGATIVE) mg/dL Urine Ketones (NEGATIVE) mg/dL Urine Occult Blood (NEGATIVE) Urine Nitrite (NEGATIVE) Urine Bilirubin (NEGATIVE) Urine Urobilinogen (NORMAL) E.U./dL Ur Leukocyte Esterase (NEGATIVE) Ur Microscopic Review Urine Culture Comments Nasal Screen MRSA (PCR) (NEGATIVE) Salicylates mg/dL Urine Opiates Screen (NEGATIVE) Ur Oxycodone Screen (NEGATIVE) Urine Methadone Screen (NEGATIVE) Ur Propoxyphene Screen (NEGATIVE) Acetaminophen (10-30) ug/mL Ur Barbiturates Screen (NEGATIVE) Ur Tricyclics Screen (NEGATIVE) Ur Phencyclidine Scrn (NEGATIVE) Ur Amphetamine Screen (NEGATIVE) U Methamphetamines Scrn (NEGATIVE) U Benzodiazepines Scrn (NEGATIVE) Urine Cocaine Screen (NEGATIVE) U Cannabinoids Screen (NEGATIVE) Ethyl Alcohol mg/dL Influenza A (Rapid) (Negative) Influenza B (Rapid) (Negative) Group A Strep Rapid (Negative) Blood Type Blood Type Recheck Antibody Screen Crossmatch IS Only 03/31/20 03/31/20 03/31/20 Range/Units 23:50 23:20 22:30 WBC (4.8-10.8) x10^3/uL RBC (4.70-6.10) 10^6/uL Hgb (14.0-18.0) g/dL Hct (42.0-52.0) % MCV (80.0-94.0) fL MCH (27.0-31.0) pg MCHC (32.0-36.0) g/dL RDW (12.0-15.0) % Plt Count (130-450) 10^3/uL MPV (7.4-11.4) fL Reticulocyte % (Auto) (0.5-2.3) % Neut # (Auto) (1.5-6.6) 10^3/uL Lymph # (Auto) (1.5-3.5) 10^3/uL [place] # (Auto) (0.0-1.0) 10^3/uL Eos # (Auto) (0.0-0.7) 10^3/uL Baso # (Auto) (0.0-0.1) 10^3/uL Absolute Nucleated RBC x10^3/uL Nucleated RBC % /100WBC Manual Slide Review Platelet Estimate (NORMAL) Platelet Morphology (NORMAL) RBC Morph Micro Appear (NORMAL) ESR (0-15) mm/Hr Absolute Retic (0.020-0.110) 10^6/uL PT (9.9-12.6) secs INR (0.8-1.2) APTT (24.9-33.3) secs Sodium (135-145) mmol/L Potassium (3.5-5.0) mmol/L Chloride (101-111) mmol/L Carbon Dioxide (21-32) mmol/L Anion Gap (6-13) BUN (6-20) mg/dL Creatinine (0.6-1.2) mg/dL Estimated GFR (MDRD) (>89) Glucose (70-100) mg/dL Lactic Acid (0.5-2.2) mmol/L Calcium (8.5-10.3) mg/dL Magnesium (1.7-2.8) mg/dL Iron (45-182) ug/dL TIBC (250-450) ug/dL % Saturation (20-50) % Transferrin (180-329) mg/dL Ferritin (23.9-336.2) ng/mL Total Bilirubin (0.2-1.0) mg/dL Direct Bilirubin (0.1-0.5) mg/dL AST (10-42) IU/L ALT (10-60) IU/L Alkaline Phosphatase (42-121) IU/L Ammonia (7-35) umol/L Lactate Dehydrogenase (91-225) IU/L Total Creatine Kinase (22-269) IU/L Troponin I High Sens (2.3-19.7) ng/L C-React Prot High Sens mg/L B-Natriuretic Peptide (5-100) pg/mL Total Protein (6.7-8.2) g/dL Albumin (3.2-5.5) g/dL Globulin (2.1-4.2) g/dL Lipase (22-51) U/L Vitamin B12 (180-914) pg/mL TSH (0.34-5.60) uIU/mL Urine Color YELLOW Urine Clarity CLEAR (CLEAR) Urine pH 8.5 H (5.0-7.5) PH Ur Specific [place] 1.010 (1.002-1.030) Urine Protein NEGATIVE (NEGATIVE) mg/dL Urine Glucose (UA) NEGATIVE (NEGATIVE) mg/dL Urine Ketones NEGATIVE (NEGATIVE) mg/dL Urine Occult Blood NEGATIVE (NEGATIVE) Urine Nitrite NEGATIVE (NEGATIVE) Urine Bilirubin NEGATIVE (NEGATIVE) Urine Urobilinogen 0.2 (NORMAL) (NORMAL) E.U./dL Ur Leukocyte Esterase NEGATIVE (NEGATIVE) Ur Microscopic Review NOT INDICATED Urine Culture Comments NOT INDICATED Nasal Screen MRSA (PCR) (NEGATIVE) Salicylates mg/dL Urine Opiates Screen NEGATIVE (NEGATIVE) Ur Oxycodone Screen NEGATIVE (NEGATIVE) Urine Methadone Screen NEGATIVE (NEGATIVE) Ur Propoxyphene Screen NEGATIVE (NEGATIVE) Acetaminophen (10-30) ug/mL Ur Barbiturates Screen NEGATIVE (NEGATIVE) Ur Tricyclics Screen NEGATIVE (NEGATIVE) Ur Phencyclidine Scrn NEGATIVE (NEGATIVE) Ur Amphetamine Screen NEGATIVE (NEGATIVE) U Methamphetamines Scrn NEGATIVE (NEGATIVE) U Benzodiazepines Scrn NEGATIVE (NEGATIVE) Urine Cocaine Screen NEGATIVE (NEGATIVE) U Cannabinoids Screen NEGATIVE (NEGATIVE) Ethyl Alcohol mg/dL Influenza A (Rapid) (Negative) Influenza B (Rapid) (Negative) Group A Strep Rapid (Negative) Blood Type O POSITIVE Blood Type Recheck Antibody Screen NEGATIVE Crossmatch IS Only See Detail 03/31/20 03/31/20 03/31/20 Range/Units 22:23 22:23 21:55 WBC (4.8-10.8) x10^3/uL RBC (4.70-6.10) 10^6/uL Hgb (14.0-18.0) g/dL Hct (42.0-52.0) % MCV (80.0-94.0) fL MCH (27.0-31.0) pg MCHC (32.0-36.0) g/dL RDW (12.0-15.0) % Plt Count (130-450) 10^3/uL MPV (7.4-11.4) fL Reticulocyte % (Auto) (0.5-2.3) % Neut # (Auto) (1.5-6.6) 10^3/uL Lymph # (Auto) (1.5-3.5) 10^3/uL [place] # (Auto) (0.0-1.0) 10^3/uL Eos # (Auto) (0.0-0.7) 10^3/uL Baso # (Auto) (0.0-0.1) 10^3/uL Absolute Nucleated RBC x10^3/uL Nucleated RBC % /100WBC Manual Slide Review Platelet Estimate (NORMAL) Platelet Morphology (NORMAL) RBC Morph Micro Appear (NORMAL) ESR (0-15) mm/Hr Absolute Retic (0.020-0.110) 10^6/uL PT (9.9-12.6) secs INR (0.8-1.2) APTT (24.9-33.3) secs Sodium (135-145) mmol/L Potassium (3.5-5.0) mmol/L Chloride (101-111) mmol/L Carbon Dioxide (21-32) mmol/L Anion Gap (6-13) BUN (6-20) mg/dL Creatinine (0.6-1.2) mg/dL Estimated GFR (MDRD) (>89) Glucose (70-100) mg/dL Lactic Acid (0.5-2.2) mmol/L Calcium (8.5-10.3) mg/dL Magnesium (1.7-2.8) mg/dL Iron (45-182) ug/dL TIBC (250-450) ug/dL % Saturation (20-50) % Transferrin (180-329) mg/dL Ferritin (23.9-336.2) ng/mL Total Bilirubin (0.2-1.0) mg/dL Direct Bilirubin (0.1-0.5) mg/dL AST (10-42) IU/L ALT (10-60) IU/L Alkaline Phosphatase (42-121) IU/L Ammonia (7-35) umol/L Lactate Dehydrogenase (91-225) IU/L Total Creatine Kinase (22-269) IU/L Troponin I High Sens (2.3-19.7) ng/L C-React Prot High Sens mg/L B-Natriuretic Peptide (5-100) pg/mL Total Protein (6.7-8.2) g/dL Albumin (3.2-5.5) g/dL Globulin (2.1-4.2) g/dL Lipase (22-51) U/L Vitamin B12 (180-914) pg/mL TSH (0.34-5.60) uIU/mL Urine Color Urine Clarity (CLEAR) Urine pH (5.0-7.5) PH Ur Specific [place] (1.002-1.030) Urine Protein (NEGATIVE) mg/dL Urine Glucose (UA) (NEGATIVE) mg/dL Urine Ketones (NEGATIVE) mg/dL Urine Occult Blood (NEGATIVE) Urine Nitrite (NEGATIVE) Urine Bilirubin (NEGATIVE) Urine Urobilinogen (NORMAL) E.U./dL Ur Leukocyte Esterase (NEGATIVE) Ur Microscopic Review Urine Culture Comments Nasal Screen MRSA (PCR) (NEGATIVE) Salicylates mg/dL Urine Opiates Screen (NEGATIVE) Ur Oxycodone Screen (NEGATIVE) Urine Methadone Screen (NEGATIVE) Ur Propoxyphene Screen (NEGATIVE) Acetaminophen (10-30) ug/mL Ur Barbiturates Screen (NEGATIVE) Ur Tricyclics Screen (NEGATIVE) Ur Phencyclidine Scrn (NEGATIVE) Ur Amphetamine Screen (NEGATIVE) U Methamphetamines Scrn (NEGATIVE) U Benzodiazepines Scrn (NEGATIVE) Urine Cocaine Screen (NEGATIVE) U Cannabinoids Screen (NEGATIVE) Ethyl Alcohol mg/dL Influenza A (Rapid) Negative (Negative) Influenza B (Rapid) Negative (Negative) Group A Strep Rapid Negative (Negative) Blood Type Blood Type Recheck O POSITIVE Antibody Screen Crossmatch IS Only 03/31/20 03/31/20 03/31/20 Range/Units 21:55 21:55 21:55 WBC (4.8-10.8) x10^3/uL RBC (4.70-6.10) 10^6/uL Hgb (14.0-18.0) g/dL Hct (42.0-52.0) % MCV (80.0-94.0) fL MCH (27.0-31.0) pg MCHC (32.0-36.0) g/dL RDW (12.0-15.0) % Plt Count (130-450) 10^3/uL MPV (7.4-11.4) fL Reticulocyte % (Auto) (0.5-2.3) % Neut # (Auto) (1.5-6.6) 10^3/uL Lymph # (Auto) (1.5-3.5) 10^3/uL [place] # (Auto) (0.0-1.0) 10^3/uL Eos # (Auto) (0.0-0.7) 10^3/uL Baso # (Auto) (0.0-0.1) 10^3/uL Absolute Nucleated RBC x10^3/uL Nucleated RBC % /100WBC Manual Slide Review Platelet Estimate (NORMAL) Platelet Morphology (NORMAL) RBC Morph Micro Appear (NORMAL) ESR (0-15) mm/Hr Absolute Retic (0.020-0.110) 10^6/uL PT (9.9-12.6) secs INR (0.8-1.2) APTT (24.9-33.3) secs Sodium (135-145) mmol/L Potassium (3.5-5.0) mmol/L Chloride (101-111) mmol/L Carbon Dioxide (21-32) mmol/L Anion Gap (6-13) BUN (6-20) mg/dL Creatinine (0.6-1.2) mg/dL Estimated GFR (MDRD) (>89) Glucose (70-100) mg/dL Lactic Acid 1.1 (0.5-2.2) mmol/L Calcium (8.5-10.3) mg/dL Magnesium (1.7-2.8) mg/dL Iron (45-182) ug/dL TIBC (250-450) ug/dL % Saturation (20-50) % Transferrin (180-329) mg/dL Ferritin (23.9-336.2) ng/mL Total Bilirubin (0.2-1.0) mg/dL Direct Bilirubin (0.1-0.5) mg/dL AST (10-42) IU/L ALT (10-60) IU/L Alkaline Phosphatase (42-121) IU/L Ammonia 11.0 (7-35) umol/L Lactate Dehydrogenase (91-225) IU/L Total Creatine Kinase (22-269) IU/L Troponin I High Sens (2.3-19.7) ng/L C-React Prot High Sens mg/L B-Natriuretic Peptide (5-100) pg/mL Total Protein (6.7-8.2) g/dL Albumin (3.2-5.5) g/dL Globulin (2.1-4.2) g/dL Lipase (22-51) U/L Vitamin B12 (180-914) pg/mL TSH 2.17 (0.34-5.60) uIU/mL Urine Color Urine Clarity (CLEAR) Urine pH (5.0-7.5) PH Ur Specific [place] (1.002-1.030) Urine Protein (NEGATIVE) mg/dL Urine Glucose (UA) (NEGATIVE) mg/dL Urine Ketones (NEGATIVE) mg/dL Urine Occult Blood (NEGATIVE) Urine Nitrite (NEGATIVE) Urine Bilirubin (NEGATIVE) Urine Urobilinogen (NORMAL) E.U./dL Ur Leukocyte Esterase (NEGATIVE) Ur Microscopic Review Urine Culture Comments Nasal Screen MRSA (PCR) (NEGATIVE) Salicylates mg/dL Urine Opiates Screen (NEGATIVE) Ur Oxycodone Screen (NEGATIVE) Urine Methadone Screen (NEGATIVE) Ur Propoxyphene Screen (NEGATIVE) Acetaminophen (10-30) ug/mL Ur Barbiturates Screen (NEGATIVE) Ur Tricyclics Screen (NEGATIVE) Ur Phencyclidine Scrn (NEGATIVE) Ur Amphetamine Screen (NEGATIVE) U Methamphetamines Scrn (NEGATIVE) U Benzodiazepines Scrn (NEGATIVE) Urine Cocaine Screen (NEGATIVE) U Cannabinoids Screen (NEGATIVE) Ethyl Alcohol mg/dL Influenza A (Rapid) (Negative) Influenza B (Rapid) (Negative) Group A Strep Rapid (Negative) Blood Type Blood Type Recheck Antibody Screen Crossmatch IS Only 03/31/20 03/31/20 03/31/20 Range/Units 21:55 21:55 21:55 WBC (4.8-10.8) x10^3/uL RBC (4.70-6.10) 10^6/uL Hgb (14.0-18.0) g/dL Hct (42.0-52.0) % MCV (80.0-94.0) fL MCH (27.0-31.0) pg MCHC (32.0-36.0) g/dL RDW (12.0-15.0) % Plt Count (130-450) 10^3/uL MPV (7.4-11.4) fL Reticulocyte % (Auto) (0.5-2.3) % Neut # (Auto) (1.5-6.6) 10^3/uL Lymph # (Auto) (1.5-3.5) 10^3/uL [place] # (Auto) (0.0-1.0) 10^3/uL Eos # (Auto) (0.0-0.7) 10^3/uL Baso # (Auto) (0.0-0.1) 10^3/uL Absolute Nucleated RBC x10^3/uL Nucleated RBC % /100WBC Manual Slide Review Platelet Estimate (NORMAL) Platelet Morphology (NORMAL) RBC Morph Micro Appear (NORMAL) ESR (0-15) mm/Hr Absolute Retic (0.020-0.110) 10^6/uL PT (9.9-12.6) secs INR (0.8-1.2) APTT (24.9-33.3) secs Sodium 134 L (135-145) mmol/L Potassium 3.4 L (3.5-5.0) mmol/L Chloride 103 (101-111) mmol/L Carbon Dioxide 21 (21-32) mmol/L Anion Gap 10.0 (6-13) BUN 15 (6-20) mg/dL Creatinine 0.9 (0.6-1.2) mg/dL Estimated GFR (MDRD) 97 (>89) Glucose 111 H (70-100) mg/dL Lactic Acid (0.5-2.2) mmol/L Calcium 8.1 L (8.5-10.3) mg/dL Magnesium 2.4 (1.7-2.8) mg/dL Iron (45-182) ug/dL TIBC (250-450) ug/dL % Saturation (20-50) % Transferrin (180-329) mg/dL Ferritin (23.9-336.2) ng/mL Total Bilirubin 0.3 (0.2-1.0) mg/dL Direct Bilirubin 0.1 (0.1-0.5) mg/dL AST 18 (10-42) IU/L ALT 19 (10-60) IU/L Alkaline Phosphatase 43 (42-121) IU/L Ammonia (7-35) umol/L Lactate Dehydrogenase (91-225) IU/L Total Creatine Kinase 61 (22-269) IU/L Troponin I High Sens 3.8 (2.3-19.7) ng/L C-React Prot High Sens mg/L B-Natriuretic Peptide 127 H (5-100) pg/mL Total Protein 5.7 L (6.7-8.2) g/dL Albumin 2.6 L (3.2-5.5) g/dL Globulin 3.1 (2.1-4.2) g/dL Lipase 27 (22-51) U/L Vitamin B12 (180-914) pg/mL TSH (0.34-5.60) uIU/mL Urine Color Urine Clarity (CLEAR) Urine pH (5.0-7.5) PH Ur Specific [place] (1.002-1.030) Urine Protein (NEGATIVE) mg/dL Urine Glucose (UA) (NEGATIVE) mg/dL Urine Ketones (NEGATIVE) mg/dL Urine Occult Blood (NEGATIVE) Urine Nitrite (NEGATIVE) Urine Bilirubin (NEGATIVE) Urine Urobilinogen (NORMAL) E.U./dL Ur Leukocyte Esterase (NEGATIVE) Ur Microscopic Review Urine Culture Comments Nasal Screen MRSA (PCR) (NEGATIVE) Salicylates < 6.0 mg/dL Urine Opiates Screen (NEGATIVE) Ur Oxycodone Screen (NEGATIVE) Urine Methadone Screen (NEGATIVE) Ur Propoxyphene Screen (NEGATIVE) Acetaminophen < 10 L (10-30) ug/mL Ur Barbiturates Screen (NEGATIVE) Ur Tricyclics Screen (NEGATIVE) Ur Phencyclidine Scrn (NEGATIVE) Ur Amphetamine Screen (NEGATIVE) U Methamphetamines Scrn (NEGATIVE) U Benzodiazepines Scrn (NEGATIVE) Urine Cocaine Screen (NEGATIVE) U Cannabinoids Screen (NEGATIVE) Ethyl Alcohol < 5.0 mg/dL Influenza A (Rapid) (Negative) Influenza B (Rapid) (Negative) Group A Strep Rapid (Negative) Blood Type Blood Type Recheck Antibody Screen Crossmatch IS Only 03/31/20 03/31/20 Range/Units 21:55 21:55 WBC 8.1 (4.8-10.8) x10^3/uL RBC 1.25 L (4.70-6.10) 10^6/uL Hgb 3.3 L* (14.0-18.0) g/dL Hct 11.3 L* (42.0-52.0) % MCV 90.4 (80.0-94.0) fL MCH 26.4 L (27.0-31.0) pg MCHC 29.2 L (32.0-36.0) g/dL RDW 14.6 (12.0-15.0) % Plt Count 490 H (130-450) 10^3/uL MPV 9.3 (7.4-11.4) fL Reticulocyte % (Auto) (0.5-2.3) % Neut # (Auto) 4.3 (1.5-6.6) 10^3/uL Lymph # (Auto) 2.3 (1.5-3.5) 10^3/uL [place] # (Auto) 1.0 (0.0-1.0) 10^3/uL Eos # (Auto) 0.3 (0.0-0.7) 10^3/uL Baso # (Auto) 0.0 (0.0-0.1) 10^3/uL Absolute Nucleated RBC 0.38 x10^3/uL Nucleated RBC % 4.7 /100WBC Manual Slide Review Indicated Platelet Estimate INCREASED (>450,000) (NORMAL) Platelet Morphology NORMAL APPEARANCE (NORMAL) RBC Morph Micro Appear 1+ MICROCYTOSIS (NORMAL) ESR (0-15) mm/Hr Absolute Retic (0.020-0.110) 10^6/uL PT 14.4 H (9.9-12.6) secs INR 1.3 H (0.8-1.2) APTT 23.7 L (24.9-33.3) secs Sodium (135-145) mmol/L Potassium (3.5-5.0) mmol/L Chloride (101-111) mmol/L Carbon Dioxide (21-32) mmol/L Anion Gap (6-13) BUN (6-20) mg/dL Creatinine (0.6-1.2) mg/dL Estimated GFR (MDRD) (>89) Glucose (70-100) mg/dL Lactic Acid (0.5-2.2) mmol/L Calcium (8.5-10.3) mg/dL Magnesium (1.7-2.8) mg/dL Iron (45-182) ug/dL TIBC (250-450) ug/dL % Saturation (20-50) % Transferrin (180-329) mg/dL Ferritin (23.9-336.2) ng/mL Total Bilirubin (0.2-1.0) mg/dL Direct Bilirubin (0.1-0.5) mg/dL AST (10-42) IU/L ALT (10-60) IU/L Alkaline Phosphatase (42-121) IU/L Ammonia (7-35) umol/L Lactate Dehydrogenase (91-225) IU/L Total Creatine Kinase (22-269) IU/L Troponin I High Sens (2.3-19.7) ng/L C-React Prot High Sens mg/L B-Natriuretic Peptide (5-100) pg/mL Total Protein (6.7-8.2) g/dL Albumin (3.2-5.5) g/dL Globulin (2.1-4.2) g/dL Lipase (22-51) U/L Vitamin B12 (180-914) pg/mL TSH (0.34-5.60) uIU/mL Urine Color Urine Clarity (CLEAR) Urine pH (5.0-7.5) PH Ur Specific [place] (1.002-1.030) Urine Protein (NEGATIVE) mg/dL Urine Glucose (UA) (NEGATIVE) mg/dL Urine Ketones (NEGATIVE) mg/dL Urine Occult Blood (NEGATIVE) Urine Nitrite (NEGATIVE) Urine Bilirubin (NEGATIVE) Urine Urobilinogen (NORMAL) E.U./dL Ur Leukocyte Esterase (NEGATIVE) Ur Microscopic Review Urine Culture Comments Nasal Screen MRSA (PCR) (NEGATIVE) Salicylates mg/dL Urine Opiates Screen (NEGATIVE) Ur Oxycodone Screen (NEGATIVE) Urine Methadone Screen (NEGATIVE) Ur Propoxyphene Screen (NEGATIVE) Acetaminophen (10-30) ug/mL Ur Barbiturates Screen (NEGATIVE) Ur Tricyclics Screen (NEGATIVE) Ur Phencyclidine Scrn (NEGATIVE) Ur Amphetamine Screen (NEGATIVE) U Methamphetamines Scrn (NEGATIVE) U Benzodiazepines Scrn (NEGATIVE) Urine Cocaine Screen (NEGATIVE) U Cannabinoids Screen (NEGATIVE) Ethyl Alcohol mg/dL Influenza A (Rapid) (Negative) Influenza B (Rapid) (Negative) Group A Strep Rapid (Negative) Blood Type Blood Type Recheck Antibody Screen Crossmatch IS Only - Diagnostic Imaging Results Diagnostic Imaging Results: positive: Read independently (ct likely ulcerative colitis involving the rectum and lower sigmoid) Impression/Plan - Problem List Problem List: He likely has ulcerative colitis. Agree with care and plan. Clear liquids. Gentle bowel prep tomorrow. Endoscopy unit is completely booked tomorrow Plan diagnostic colonoscopy tuesday 04/03 730 am
[2020-04-02 05:12] LABS: BASOPHILS % (AUTO) 0.3 %; EOSINOPHILS % (AUTO) 0.4 %; LYMPHOCYTES # (AUTO) 2.2 10^3/uL (1.5-3.5); LYMPHOCYTES % (AUTO) 28.5 %; MEAN CORPUSCULAR HEMOGLOBIN 28.6 pg (27.0-31.0); MEAN CORPUSCULAR HGB CONC 31.2 g/dL (32.0-36.0); MEAN CORPUSCULAR VOLUME 91.9 fL (80.0-94.0); MEAN PLATELET VOLUME 9.4 fL (7.4-11.4); MONOCYTES # (AUTO) 0.9 10^3/uL (0.0-1.0); MONOCYTES % (AUTO) 11.1 %; NEUTROPHILS # (AUTO) 4.5 10^3/uL (1.5-6.6); NEUTROPHILS % (AUTO) 56.8 %; PLT - PLATELET COUNT 378 10^3/uL (130-450); RED BLOOD COUNT 2.34 10^6/uL (4.70-6.10); RED CELL DISTRIBUTION WIDTH 15.2 % (12.0-15.0); WHITE BLOOD COUNT 7.9 x10^3/uL (4.8-10.8)
[2020-04-02 05:17] LABS: HGB - HEMOGLOBIN 6.7 g/dL (14.0-18.0)
[2020-04-02 05:19] LABS: CALCIUM 8.4 mg/dL (8.5-10.3); CREATININE 0.8 mg/dL (0.6-1.2); MAGNESIUM 2.5 mg/dL (1.7-2.8); PHOSPHORUS 3.6 mg/dL (2.5-4.6)
[2020-04-02] MEDS: SODIUM CHLORIDE FLUSH 0.9% 10 ML SYRINGE IVP SCH ×4 (05:40→17:13)
[2020-04-02] MEDS: PANTOPRAZOLE 40 MG VIAL IVP SCH (06:50)
[2020-04-02] MEDS: SODIUM CHLORIDE 0.9% 1,000 ML IV SCH ×2 (06:51→18:50)
[2020-04-02] MEDS ORDERED: PEG 3350/NA SULF,BICARB,CL/KCL 4,000 ML BOTTLE PO ONE (08:59)
--- NOTE | 2020-04-02 14:27 | PROVIDER PROGRESS NOTE ---
Subjective - Prog Note Date Prog Note Date: 04/02/20 Prog Note Time: 14:22 Current Medications - Current Medications Current Medications: Active Medications Acetaminophen (Tylenol) 650 mg PO Q4HR PRN PRN Reason: Pain or Fever > 38C (100.4F) Last Admin: 04/01/20 16:16 Dose: 650 mg Documented by: Sodium Chloride (Normal Saline 0.9%) 1,000 mls @ 100 mls/hr IV .Q10H [facility] Last Infusion: 04/02/20 13:30 Dose: 100 mls/hr Documented by: Morphine Sulfate (Morphine (Carpuject)) 2 mg IVP Q2HR PRN PRN Reason: Pain 8 to 10 Ondansetron HCl (Zofran Odt) 4 mg TL Q6HR PRN PRN Reason: Nausea / Vomiting Ondansetron HCl (Zofran Inj) 4 mg IVP Q6HR PRN PRN Reason: Nausea / Vomiting Pantoprazole Sodium (Protonix) 40 mg IVP QDAC [facility] Last Admin: 04/02/20 06:50 Dose: 40 mg Documented by: Sodium Chloride (Normal Saline Flush 0.9%) 10 ml IVP PRN PRN PRN Reason: NEEDED PER PROVIDER ORDERS Sodium Chloride (Normal Saline Flush 0.9%) 10 ml IVP 0100,0900,1700 [facility] Last Admin: 04/02/20 09:00 Dose: 10 ml Documented by: Acetaminophen [Tylenol Extra Strength] 500 mg PO PRN PRN 04/01/20 Cholecalciferol (Vitamin D3) [Vitamin D3] 25 mcg PO DAILY 04/01/20 Echinacea Purp Dickens,E.pelon Rt [Echinacea Extract 62.5 mg Cap] 62.5 mg PO DAILY 04/01/20 Multivit-Minerals/Folic Acid [Adult One Daily Multivit Tab] 1 tab PO DAILY 04/01/20 Regent-3 Fatty Acids [Fish Oil Concentrate] 1,000 mg PO DAILY 04/01/20 Objective - Vital Signs/Intake & Output Reviewed Vital Signs: Yes Vital Signs: Vital Signs x48h Temp Pulse Pulse Resp BP BP Pulse Ox 04/02/20 14:00 74 14 110/60 04/02/20 13:30 37.8 C H 68 13 105/55 L 04/02/20 13:00 68 11 L 104/61 98 04/02/20 12:00 36.8 C 72 14 103/62 98 04/02/20 11:35 36.8 C 72 21 101/57 L 04/02/20 11:25 36.6 C 66 12 111/62 04/02/20 11:00 97.8 C H 68 71 12 107/58 L 107/58 L 100 04/02/20 10:00 68 13 118/62 100 04/02/20 09:00 64 13 91/48 L 99 04/02/20 08:00 63 12 101/64 96 04/02/20 07:00 36.6 C 61 16 114/73 99 Intake & Output: Intake & Output 03/30/20 03/31/20 04/01/20 04/02/20 23:59 23:59 23:59 23:59 Intake Total 4208.667 1990.000 Output Total 1000 Balance 4208.667 990.000 - Objective General Appearance: positive: No acute distress, Alert, Other (less pallor, but still looks fatigued) Eyes Bilateral: positive: PERRL, EOMI ENT: positive: Pharynx nml Neck: positive: No JVD. negative: Stiff neck Respiratory: positive: Chest non-tender. negative: Wheezes, Rales, Rhonchi Cardiovascular: positive: Regular rate & rhythm, No murmur. negative: Gallop/S4, Friction rub Abdomen: positive: No organomegaly, Nml bowel sounds, No distention, Tenderness (over Left mid abd and LUQ and suprapubic). negative: Guarding, Rebound Skin: positive: Warm, Dry, Pallor Extremities: positive: Non-tender, No pedal edema Neurologic/Psychiatric: positive: Oriented x3, CN's nml (2-12), Motor nml - Lab Results Fish Bones: 04/02/20 04:40 04/02/20 04:40 Other Labs: Lab Results x24hrs 04/02/20 04/02/20 04/01/20 Range/Units 04:40 04:40 14:20 WBC 7.9 (4.8-10.8) x10^3/uL RBC 2.34 L (4.70-6.10) 10^6/uL Hgb 6.7 L* (14.0-18.0) g/dL Hct 21.5 L (42.0-52.0) % MCV 91.9 (80.0-94.0) fL MCH 28.6 (27.0-31.0) pg MCHC 31.2 L (32.0-36.0) g/dL RDW 15.2 H (12.0-15.0) % Plt Count 378 (130-450) 10^3/uL MPV 9.4 (7.4-11.4) fL Reticulocyte % (Auto) (0.5-2.3) % Neut # (Auto) 4.5 (1.5-6.6) 10^3/uL Lymph # (Auto) 2.2 (1.5-3.5) 10^3/uL Mayes # (Auto) 0.9 (0.0-1.0) 10^3/uL Eos # (Auto) 0.0 (0.0-0.7) 10^3/uL Baso # (Auto) 0.0 (0.0-0.1) 10^3/uL Absolute Nucleated RBC 0.34 x10^3/uL Nucleated RBC % 4.3 /100WBC Absolute Retic (0.020-0.110) 10^6/uL Sodium 138 (135-145) mmol/L Potassium 4.1 (3.5-5.0) mmol/L Chloride 105 (101-111) mmol/L Carbon Dioxide 24 (21-32) mmol/L Anion Gap 9.0 (6-13) BUN 13 (6-20) mg/dL Creatinine 0.8 (0.6-1.2) mg/dL Estimated GFR (MDRD) 111 (>89) Glucose 110 H (70-100) mg/dL Calcium 8.4 L (8.5-10.3) mg/dL Phosphorus 3.6 (2.5-4.6) mg/dL Magnesium 2.5 (1.7-2.8) mg/dL Iron (45-182) ug/dL TIBC (250-450) ug/dL % Saturation (20-50) % Transferrin (180-329) mg/dL Ferritin (23.9-336.2) ng/mL Lactate Dehydrogenase 101 (91-225) IU/L Vitamin B12 (180-914) pg/mL Nasal Screen MRSA (PCR) (NEGATIVE) Coronavirus (PCR) Blood Type Antibody Screen Crossmatch IS Only 04/01/20 04/01/20 04/01/20 Range/Units 14:20 14:20 14:20 WBC (4.8-10.8) x10^3/uL RBC 2.44 L (4.70-6.10) 10^6/uL Hgb (14.0-18.0) g/dL Hct (42.0-52.0) % MCV (80.0-94.0) fL MCH (27.0-31.0) pg MCHC (32.0-36.0) g/dL RDW (12.0-15.0) % Plt Count (130-450) 10^3/uL MPV (7.4-11.4) fL Reticulocyte % (Auto) 3.26 H (0.5-2.3) % Neut # (Auto) (1.5-6.6) 10^3/uL Lymph # (Auto) (1.5-3.5) 10^3/uL Mayes # (Auto) (0.0-1.0) 10^3/uL Eos # (Auto) (0.0-0.7) 10^3/uL Baso # (Auto) (0.0-0.1) 10^3/uL Absolute Nucleated RBC x10^3/uL Nucleated RBC % /100WBC Absolute Retic 0.080 (0.020-0.110) 10^6/uL Sodium (135-145) mmol/L Potassium (3.5-5.0) mmol/L Chloride (101-111) mmol/L Carbon Dioxide (21-32) mmol/L Anion Gap (6-13) BUN (6-20) mg/dL Creatinine (0.6-1.2) mg/dL Estimated GFR (MDRD) (>89) Glucose (70-100) mg/dL Calcium (8.5-10.3) mg/dL Phosphorus (2.5-4.6) mg/dL Magnesium (1.7-2.8) mg/dL Iron 18 L (45-182) ug/dL TIBC 349 (250-450) ug/dL % Saturation 5 L (20-50) % Transferrin 249 (180-329) mg/dL Ferritin 8.2 L (23.9-336.2) ng/mL Lactate Dehydrogenase (91-225) IU/L Vitamin B12 1437 H (180-914) pg/mL Nasal Screen MRSA (PCR) (NEGATIVE) Coronavirus (PCR) Blood Type Antibody Screen Crossmatch IS Only 04/01/20 04/01/20 03/31/20 Range/Units 14:20 10:50 22:30 WBC 8.2 (4.8-10.8) x10^3/uL RBC 2.46 L (4.70-6.10) 10^6/uL Hgb 7.1 L (14.0-18.0) g/dL Hct 22.1 L (42.0-52.0) % MCV 89.8 (80.0-94.0) fL MCH 28.9 (27.0-31.0) pg MCHC 32.1 (32.0-36.0) g/dL RDW 14.9 (12.0-15.0) % Plt Count 390 (130-450) 10^3/uL MPV 8.8 (7.4-11.4) fL Reticulocyte % (Auto) (0.5-2.3) % Neut # (Auto) (1.5-6.6) 10^3/uL Lymph # (Auto) (1.5-3.5) 10^3/uL Mayes # (Auto) (0.0-1.0) 10^3/uL Eos # (Auto) (0.0-0.7) 10^3/uL Baso # (Auto) (0.0-0.1) 10^3/uL Absolute Nucleated RBC x10^3/uL Nucleated RBC % /100WBC Absolute Retic (0.020-0.110) 10^6/uL Sodium (135-145) mmol/L Potassium (3.5-5.0) mmol/L Chloride (101-111) mmol/L Carbon Dioxide (21-32) mmol/L Anion Gap (6-13) BUN (6-20) mg/dL Creatinine (0.6-1.2) mg/dL Estimated GFR (MDRD) (>89) Glucose (70-100) mg/dL Calcium (8.5-10.3) mg/dL Phosphorus (2.5-4.6) mg/dL Magnesium (1.7-2.8) mg/dL Iron (45-182) ug/dL TIBC (250-450) ug/dL % Saturation (20-50) % Transferrin (180-329) mg/dL Ferritin (23.9-336.2) ng/mL Lactate Dehydrogenase (91-225) IU/L Vitamin B12 (180-914) pg/mL Nasal Screen MRSA (PCR) NEGATIVE (NEGATIVE) Coronavirus (PCR) Blood Type O POSITIVE Antibody Screen NEGATIVE Crossmatch IS Only See Detail 03/31/20 Range/Units 22:23 WBC (4.8-10.8) x10^3/uL RBC (4.70-6.10) 10^6/uL Hgb (14.0-18.0) g/dL Hct (42.0-52.0) % MCV (80.0-94.0) fL MCH (27.0-31.0) pg MCHC (32.0-36.0) g/dL RDW (12.0-15.0) % Plt Count (130-450) 10^3/uL MPV (7.4-11.4) fL Reticulocyte % (Auto) (0.5-2.3) % Neut # (Auto) (1.5-6.6) 10^3/uL Lymph # (Auto) (1.5-3.5) 10^3/uL Mayes # (Auto) (0.0-1.0) 10^3/uL Eos # (Auto) (0.0-0.7) 10^3/uL Baso # (Auto) (0.0-0.1) 10^3/uL Absolute Nucleated RBC x10^3/uL Nucleated RBC % /100WBC Absolute Retic (0.020-0.110) 10^6/uL Sodium (135-145) mmol/L Potassium (3.5-5.0) mmol/L Chloride (101-111) mmol/L Carbon Dioxide (21-32) mmol/L Anion Gap (6-13) BUN (6-20) mg/dL Creatinine (0.6-1.2) mg/dL Estimated GFR (MDRD) (>89) Glucose (70-100) mg/dL Calcium (8.5-10.3) mg/dL Phosphorus (2.5-4.6) mg/dL Magnesium (1.7-2.8) mg/dL Iron (45-182) ug/dL TIBC (250-450) ug/dL % Saturation (20-50) % Transferrin (180-329) mg/dL Ferritin (23.9-336.2) ng/mL Lactate Dehydrogenase (91-225) IU/L Vitamin B12 (180-914) pg/mL Nasal Screen MRSA (PCR) (NEGATIVE) Coronavirus (PCR) NEGATIVE Blood Type Antibody Screen Crossmatch IS Only Assessment/Plan - Problem List (1) Anemia Impression: Ddx: blood loss induced anemia vs. hemolytic anemia vs. inflammation induced anemia vs. B12/folate/iron deficiency anemia) Iron was low at 18. TIBC 349. Percent saturation 5%. Transferrin 249. Ferritin low at 8.2. His B12 level is high. Reticulocyte count is 3.26. LDH is 101. The patient's hgb was 3.3 upon arrival to ED, aline to 4.4 after 4 units of PRBCs. RBC count is 1.25, while MCV is 90.4. As such, the overall impression is that of iron deficiency anemia from his blood loss. Pt appeared generally pale on admission with dry mucous membranes, no bruising or open wounds noted. Denies any history of chronic disease with the exception of hemorrhoids. Family hx of UC. Reports severe weakness and SOB upon exertion. Vital signs WNL, and he was not requiring supplemental oxygen at admission. Otherwise a generally healthy individual prior to this event. He has received 4 units of packed red cells yesterday. And hemoglobin is 6.7 today. Plan: -Transfuse 1 more uPRBCs -Recheck CBC after transfusion complete -monitor vitals for s/s of worsening anemia or increased oxygen requirements Qualifiers: Anemia type: other cause Other causes of anemia: other cause, not classified Qualified Code(s): D64.89 - Other specified anemias (2) Bright red blood per rectum continues. Conclusion/Plan: Ddx:external hemorrhoids, internal hemorrhoids, ulcerative colitis, IBD Pt reports raissa gross amounts of blood with each stooling which began over a month ago. He also reports to occasionally pass some clots. His stool he reports to be mostly formed, otherwise is difficult to visualize due to amount of blood. He was diagnosed with external hemorrhoids at the age of 16. In his adult years, when hemorroids are bad he reports having to digitally push them into his rectum after defecating. There is a history of UC and polyps from his mother. CT of abd and pelvis show significant inflammation in the sigmoid and rectum that is continuous and moderate in severity. This patient will need a colonoscopy to determine etiology and source of his bleeding. Surgery has been consulted. They cannot take him to the OR today because the OR is booked. Plan is for C scope tomorrow. Dr. Beltran has been in to see the patient and discussed this with him. Plan: -Colon prep today for colonoscopy tomorrow -Changed to clear liquids by Dr. Beltran. Will be n.p.o. tonight. -Monitor i/os for excess volume loss -monitor vitals for s/s of excessive volume loss (3) Abdominal pain still present but improved. Conclusion/Plan: Pt describes the pain as a continuous dull aching across his lower abdomen signifying he needs to have a BM. However that pain intensifies to a severe cramping when defecating. That continues today. Every time he tries to have a BM, tenesmus ensues. Narcotics should be avoided due to his recent reports of constipation which may have triggers his symptoms. NSAIDS should be avoided to prevent further GI irritation. Continue previous plan of: -Protonix 40mg IVP -Acetaminophen 650mg PO PRN q4hr for pain Qualifiers: Abdominal location: lower abdomen, unspecified Qualified Code(s): R10.30 - Lower abdominal pain, unspecified (4) Subjective fever Conclusion/Plan: Self reported fevers while at home, highest being 104F. Patient has not had any fevers since arriving to . Recent dental work at the beginning of February may have resulted in an undiagnosed infection. WBC 8.1, ESR 79. He has not had a fever here. The highest temp he said is today at 37.8. White cell count remains Normal. Blood cultures were no growth after 1 day. Throat culture shows mixed oropharyngeal matthew. Plan: -Acetaminophen 650mg PO PRN q6hr for temp >38C -Monitor temp Qualifiers: Other causes of anemia: other cause, not classified Qualified Code(s): D64.89 - Other specified anemias
[2020-04-02 15:00] LABS: HGB - HEMOGLOBIN 7.4 g/dL (14.0-18.0)
--- NOTE | 2020-04-02 15:34 | PROVIDER PROGRESS NOTE ---
Subjective - Prog Note Date Prog Note Date: 04/02/20 - Subjective Pt reports feeling: Improved (headache improved. Still having occasional low abdominal pain) Objective - Vital Signs/Intake & Output Vital Signs: Vital Signs x48h Temp Pulse Pulse Resp BP BP Pulse Ox 04/02/20 15:00 67 12 112/61 04/02/20 14:00 74 14 110/60 04/02/20 13:30 37.8 C H 68 13 105/55 L 04/02/20 13:00 68 11 L 104/61 98 04/02/20 12:00 36.8 C 72 14 103/62 98 04/02/20 11:35 36.8 C 72 21 101/57 L 04/02/20 11:25 36.6 C 66 12 111/62 04/02/20 11:00 97.8 C H 68 71 12 107/58 L 107/58 L 100 04/02/20 10:00 68 13 118/62 100 04/02/20 09:00 64 13 91/48 L 99 04/02/20 08:00 63 12 101/64 96 Intake & Output: Intake & Output 03/30/20 03/31/20 04/01/20 04/02/20 23:59 23:59 23:59 23:59 Intake Total 4208.667 2140.000 Output Total 1000 Balance 4208.667 1140.000 - Objective General Appearance: positive: No acute distress, Alert Eyes Bilateral: positive: Normal inspection, PERRL, EOMI ENT: positive: No signs of dehydration Neck: positive: No JVD Respiratory: positive: No respiratory distress Abdomen: positive: No distention, Other (benign.) Neurologic/Psychiatric: positive: Oriented x3 - Lab Results Fish Bones: 04/02/20 14:50 04/02/20 04:40 Other Labs: Lab Results x24hrs 04/02/20 04/02/20 04/02/20 Range/Units 14:50 04:40 04:40 WBC 7.9 (4.8-10.8) x10^3/uL RBC 2.34 L (4.70-6.10) 10^6/uL Hgb 7.4 L 6.7 L* (14.0-18.0) g/dL Hct 23.8 L 21.5 L (42.0-52.0) % MCV 91.9 (80.0-94.0) fL MCH 28.6 (27.0-31.0) pg MCHC 31.2 L (32.0-36.0) g/dL RDW 15.2 H (12.0-15.0) % Plt Count 378 (130-450) 10^3/uL MPV 9.4 (7.4-11.4) fL Neut # (Auto) 4.5 (1.5-6.6) 10^3/uL Lymph # (Auto) 2.2 (1.5-3.5) 10^3/uL Cross # (Auto) 0.9 (0.0-1.0) 10^3/uL Eos # (Auto) 0.0 (0.0-0.7) 10^3/uL Baso # (Auto) 0.0 (0.0-0.1) 10^3/uL Absolute Nucleated RBC 0.34 x10^3/uL Nucleated RBC % 4.3 /100WBC Sodium 138 (135-145) mmol/L Potassium 4.1 (3.5-5.0) mmol/L Chloride 105 (101-111) mmol/L Carbon Dioxide 24 (21-32) mmol/L Anion Gap 9.0 (6-13) BUN 13 (6-20) mg/dL Creatinine 0.8 (0.6-1.2) mg/dL Estimated GFR (MDRD) 111 (>89) Glucose 110 H (70-100) mg/dL Calcium 8.4 L (8.5-10.3) mg/dL Phosphorus 3.6 (2.5-4.6) mg/dL Magnesium 2.5 (1.7-2.8) mg/dL Vitamin B12 (180-914) pg/mL Nasal Screen MRSA (PCR) (NEGATIVE) Coronavirus (PCR) Blood Type Antibody Screen Crossmatch IS Only 04/01/20 04/01/20 03/31/20 Range/Units 14:20 10:50 22:30 WBC (4.8-10.8) x10^3/uL RBC (4.70-6.10) 10^6/uL Hgb (14.0-18.0) g/dL Hct (42.0-52.0) % MCV (80.0-94.0) fL MCH (27.0-31.0) pg MCHC (32.0-36.0) g/dL RDW (12.0-15.0) % Plt Count (130-450) 10^3/uL MPV (7.4-11.4) fL Neut # (Auto) (1.5-6.6) 10^3/uL Lymph # (Auto) (1.5-3.5) 10^3/uL Cross # (Auto) (0.0-1.0) 10^3/uL Eos # (Auto) (0.0-0.7) 10^3/uL Baso # (Auto) (0.0-0.1) 10^3/uL Absolute Nucleated RBC x10^3/uL Nucleated RBC % /100WBC Sodium (135-145) mmol/L Potassium (3.5-5.0) mmol/L Chloride (101-111) mmol/L Carbon Dioxide (21-32) mmol/L Anion Gap (6-13) BUN (6-20) mg/dL Creatinine (0.6-1.2) mg/dL Estimated GFR (MDRD) (>89) Glucose (70-100) mg/dL Calcium (8.5-10.3) mg/dL Phosphorus (2.5-4.6) mg/dL Magnesium (1.7-2.8) mg/dL Vitamin B12 1437 H (180-914) pg/mL Nasal Screen MRSA (PCR) NEGATIVE (NEGATIVE) Coronavirus (PCR) Blood Type O POSITIVE Antibody Screen NEGATIVE Crossmatch IS Only See Detail 03/31/20 Range/Units 22:23 WBC (4.8-10.8) x10^3/uL RBC (4.70-6.10) 10^6/uL Hgb (14.0-18.0) g/dL Hct (42.0-52.0) % MCV (80.0-94.0) fL MCH (27.0-31.0) pg MCHC (32.0-36.0) g/dL RDW (12.0-15.0) % Plt Count (130-450) 10^3/uL MPV (7.4-11.4) fL Neut # (Auto) (1.5-6.6) 10^3/uL Lymph # (Auto) (1.5-3.5) 10^3/uL Cross # (Auto) (0.0-1.0) 10^3/uL Eos # (Auto) (0.0-0.7) 10^3/uL Baso # (Auto) (0.0-0.1) 10^3/uL Absolute Nucleated RBC x10^3/uL Nucleated RBC % /100WBC Sodium (135-145) mmol/L Potassium (3.5-5.0) mmol/L Chloride (101-111) mmol/L Carbon Dioxide (21-32) mmol/L Anion Gap (6-13) BUN (6-20) mg/dL Creatinine (0.6-1.2) mg/dL Estimated GFR (MDRD) (>89) Glucose (70-100) mg/dL Calcium (8.5-10.3) mg/dL Phosphorus (2.5-4.6) mg/dL Magnesium (1.7-2.8) mg/dL Vitamin B12 (180-914) pg/mL Nasal Screen MRSA (PCR) (NEGATIVE) Coronavirus (PCR) NEGATIVE Blood Type Antibody Screen Crossmatch IS Only Assessment/Plan - Problem List (1) Colitis Impression: plan clear liquid diet. npo after midnight. bowel prep today colonoscopy 730 am tomorrow 04/03/20
[2020-04-03] MEDS: SODIUM CHLORIDE FLUSH 0.9% 10 ML SYRINGE IVP SCH ×3 (01:00→17:01)
[2020-04-03] MEDS: SODIUM CHLORIDE 0.9% 1,000 ML IV SCH ×2 (04:40→19:16)
[2020-04-03 05:02] LABS: BASOPHILS % (AUTO) 0.5 %; EOSINOPHILS # (AUTO) 0.1 10^3/uL (0.0-0.7); EOSINOPHILS % (AUTO) 1.7 %; LYMPHOCYTES # (AUTO) 1.8 10^3/uL (1.5-3.5); LYMPHOCYTES % (AUTO) 21.3 %; MEAN CORPUSCULAR HEMOGLOBIN 29.2 pg (27.0-31.0); MEAN CORPUSCULAR HGB CONC 32.2 g/dL (32.0-36.0); MEAN CORPUSCULAR VOLUME 90.7 fL (80.0-94.0); MEAN PLATELET VOLUME 9.2 fL (7.4-11.4); MONOCYTES # (AUTO) 0.7 10^3/uL (0.0-1.0); MONOCYTES % (AUTO) 8.9 %; NEUTROPHILS # (AUTO) 5.4 10^3/uL (1.5-6.6); PLT - PLATELET COUNT 341 10^3/uL (130-450); RED BLOOD COUNT 2.26 10^6/uL (4.70-6.10); RED CELL DISTRIBUTION WIDTH 14.8 % (12.0-15.0); WHITE BLOOD COUNT 8.2 x10^3/uL (4.8-10.8)
[2020-04-03 05:13] LABS: HGB - HEMOGLOBIN 6.6 g/dL (14.0-18.0)
[2020-04-03 05:14] LABS: CALCIUM 7.9 mg/dL (8.5-10.3); CREATININE 0.8 mg/dL (0.6-1.2); MAGNESIUM 2.2 mg/dL (1.7-2.8); PHOSPHORUS 3.8 mg/dL (2.5-4.6)
[2020-04-03 05:30] LABS: PLATELET ESTIMATE, MANUAL NORMAL (130-450,000) (NORMAL); PLATELET MORPHOLOGY NORMAL APPEARANCE (NORMAL)
[2020-04-03] MEDS: PANTOPRAZOLE 40 MG VIAL IVP SCH (06:57)
--- NOTE | 2020-04-03 07:06 | ANESTHESIA ---
Pre-Anesthesia VS, & Labs - Diagnosis GI bleed anemia - Procedure colonoscopy Vital Signs: Temp Pulse Resp BP Pulse Ox 36.7 C 65 15 98/47 L 100 04/03/20 04:00 04/03/20 06:00 04/03/20 06:00 04/03/20 06:00 04/03/20 04:00 Height 5 ft 10 in Weight (kg) 83.5 kg Body Mass Index 26.4 - NPO >8 hours - Lab Results Current Lab Results: Laboratory Tests 04/03/20 04:30: Sodium 139, Potassium 3.6, Chloride 104, Carbon Dioxide 25, Anion Gap 10.0, BUN 13, Creatinine 0.8, Estimated GFR (MDRD) 111, Glucose 93, Calcium 7.9 L, Phosphorus 3.8, Magnesium 2.2 04/03/20 04:30: WBC 8.2, RBC 2.26 L, Hgb 6.6 L*, Hct 20.5 L, MCV 90.7, MCH 29.2, MCHC 32.2, RDW 14.8, Plt Count 341, MPV 9.2, Neut # (Auto) 5.4, Lymph # (Auto) 1.8, [place] # (Auto) 0.7, Eos # (Auto) 0.1, Baso # (Auto) 0.0, Absolute Nucleated RBC 0.15, Nucleated RBC % 1.8, Manual Slide Review Indicated, WBC Morphology NORMAL APPEARANCE, Platelet Estimate NORMAL (130-450,000), Platelet Morphology NORMAL APPEARANCE, RBC Morph Micro Appear 1+ POLYCHROMASIA 04/02/20 14:50: Hgb 7.4 L, Hct 23.8 L 04/02/20 04:40: Sodium 138, Potassium 4.1, Chloride 105, Carbon Dioxide 24, Anion Gap 9.0, BUN 13, Creatinine 0.8, Estimated GFR (MDRD) 111, Glucose 110 H, Calcium 8.4 L, Phosphorus 3.6, Magnesium 2.5 04/02/20 04:40: WBC 7.9, RBC 2.34 L, Hgb 6.7 L*, Hct 21.5 L, MCV 91.9, MCH 28.6, MCHC 31.2 L, RDW 15.2 H, Plt Count 378, MPV 9.4, Neut # (Auto) 4.5, Lymph # (Auto) 2.2, [place] # (Auto) 0.9, Eos # (Auto) 0.0, Baso # (Auto) 0.0, Absolute Nucleated RBC 0.34, Nucleated RBC % 4.3 04/01/20 14:20: Lactate Dehydrogenase 101 04/01/20 14:20: Ferritin 8.2 L, Vitamin B12 1437 H 04/01/20 14:20: Iron 18 L, TIBC 349, % Saturation 5 L, Transferrin 249 04/01/20 14:20: RBC 2.44 L, Reticulocyte % (Auto) 3.26 H, Absolute Retic 0.080 04/01/20 14:20: WBC 8.2, RBC 2.46 L, Hgb 7.1 L, Hct 22.1 L, MCV 89.8, MCH 28.9, MCHC 32.1, RDW 14.9, Plt Count 390, MPV 8.8 04/01/20 06:10: C-React Prot High Sens 30.3 04/01/20 06:10: ESR 79 H 04/01/20 04:35: Hgb 4.4 L* 03/31/20 23:50: Urine Opiates Screen NEGATIVE, Ur Oxycodone Screen NEGATIVE, Urine Methadone Screen NEGATIVE, Ur Propoxyphene Screen NEGATIVE, Ur Barbiturates Screen NEGATIVE, Ur Tricyclics Screen NEGATIVE, Ur Phencyclidine Scrn NEGATIVE, Ur Amphetamine Screen NEGATIVE, U Methamphetamines Scrn NEGATIVE, U Benzodiazepines Scrn NEGATIVE, Urine Cocaine Screen NEGATIVE, U Cannabinoids Screen NEGATIVE 03/31/20 22:30: Blood Type O POSITIVE, Antibody Screen NEGATIVE, Crossmatch IS Only See Detail 03/31/20 21:55: Blood Type Recheck O POSITIVE 03/31/20 21:55: Ammonia 11.0 03/31/20 21:55: TSH 2.17 03/31/20 21:55: Lactic Acid 1.1 03/31/20 21:55: B-Natriuretic Peptide 127 H 03/31/20 21:55: Troponin I High Sens 3.8 03/31/20 21:55: Sodium 134 L, Potassium 3.4 L, Chloride 103, Carbon Dioxide 21, Anion Gap 10.0, BUN 15, Creatinine 0.9, Estimated GFR (MDRD) 97, Glucose 111 H, Calcium 8.1 L, Magnesium 2.4, Total Bilirubin 0.3, Direct Bilirubin 0.1, AST 18, ALT 19, Alkaline Phosphatase 43, Total Creatine Kinase 61, Total Protein 5.7 L, Albumin 2.6 L, Globulin 3.1, Lipase 27, Salicylates < 6.0, Acetaminophen < 10 L, Ethyl Alcohol < 5.0 03/31/20 21:55: PT 14.4 H, INR 1.3 H, APTT 23.7 L 03/31/20 21:55: WBC 8.1, RBC 1.25 L, Hgb 3.3 L*, Hct 11.3 L*, MCV 90.4, MCH 26.4 L, MCHC 29.2 L, RDW 14.6, Plt Count 490 H, MPV 9.3, Neut # (Auto) 4.3, Lymph # (Auto) 2.3, [place] # (Auto) 1.0, Eos # (Auto) 0.3, Baso # (Auto) 0.0, Absolute Nucleated RBC 0.38, Nucleated RBC % 4.7, Manual Slide Review Indicated, Platelet Estimate INCREASED (>450,000), Platelet Morphology NORMAL APPEARANCE, RBC Morph Micro Appear 1+ MICROCYTOSIS Lab results reviewed: Yes Fish Bones: 04/03/20 04:30 04/03/20 04:30 Home Medications and Allergies Home Medications: Ambulatory Orders Acetaminophen [Tylenol Extra Strength] 500 mg PO PRN PRN 04/01/20 Cholecalciferol (Vitamin D3) [Vitamin D3] 25 mcg PO DAILY 04/01/20 Echinacea Purp [place] Rt [Echinacea Extract 62.5 mg Cap] 62.5 mg PO DAILY 04/01/20 Multivit-Minerals/Folic Acid [Adult One Daily Multivit Tab] 1 tab PO DAILY 04/01/20 Tropic-3 Fatty Acids [Fish Oil Concentrate] 1,000 mg PO DAILY 04/01/20 Active Medications Acetaminophen (Tylenol) 650 mg PO Q4HR PRN PRN Reason: Pain or Fever > 38C (100.4F) Last Admin: 04/01/20 16:16 Dose: 650 mg Documented by: Sodium Chloride (Normal Saline 0.9%) 1,000 mls @ 100 mls/hr IV .Q10H SUDARSHAN Last Admin: 04/03/20 04:40 Dose: 100 mls/hr Documented by: Morphine Sulfate (Morphine (Carpuject)) 2 mg IVP Q2HR PRN PRN Reason: Pain 8 to 10 Ondansetron HCl (Zofran Odt) 4 mg TL Q6HR PRN PRN Reason: Nausea / Vomiting Ondansetron HCl (Zofran Inj) 4 mg IVP Q6HR PRN PRN Reason: Nausea / Vomiting Pantoprazole Sodium (Protonix) 40 mg IVP QDAC [facility] Last Admin: 04/03/20 06:57 Dose: 40 mg Documented by: Sodium Chloride (Normal Saline Flush 0.9%) 10 ml IVP PRN PRN PRN Reason: NEEDED PER PROVIDER ORDERS Sodium Chloride (Normal Saline Flush 0.9%) 10 ml IVP 0100,0900,1700 [facility] Last Admin: 04/03/20 01:00 Dose: 10 ml Documented by: Acetaminophen [Tylenol Extra Strength] 500 mg PO PRN PRN 04/01/20 Cholecalciferol (Vitamin D3) [Vitamin D3] 25 mcg PO DAILY 04/01/20 Echinacea Purp [place],E[place] Rt [Echinacea Extract 62.5 mg Cap] 62.5 mg PO DAILY 04/01/20 Multivit-Minerals/Folic Acid [Adult One Daily Multivit Tab] 1 tab PO DAILY 04/01/20 Tropic-3 Fatty Acids [Fish Oil Concentrate] 1,000 mg PO DAILY 04/01/20 Allergies/Adverse Reactions: Allergies Allergy/AdvReac Type Severity Reaction Status Date / Time No Known Drug Allergies Allergy Verified 03/31/20 22:29 Anes History & Medical History - Anesthetic History Anesthesia Complications: reports: No previous complications Family history of Anesthesia Complications: Denies Family history of Malignant Hyperthermia: Denies - Medical History Cardiovascular: reports: None Pulmonary: reports: None Gastrointestinal: reports: Hemorrhoids (DX at age 16) Urinary: reports: None Neuro: reports: None Musculoskeletal: reports: None Endocrine/Autoimmune: reports: None Skin: reports: None Smoking Status: Former smoker Other Past Medical History: Abdominal cramping with defecating beginning at age 16 Exam General: Alert, Oriented x3, Cooperative Dental: WNL Mouth Opening: Greater than 4 Fingerbreadths Neck Mobility: Normal Mallampati classification: II Thyromental Distance: greater than 6 cm Respiratory: Lungs clear, Normal breath sounds, No respiratory distress Cardiovascular: Regular rate Neurological: Normal speech Mental/Cognitive Status: Alert/Oriented X3, Normal for patient Cognitive Status: Within normal limits Plan Anesthesia Type: MAC Consent for Procedure(s) Verified and Reviewed: Yes Code Status: Attempt Resuscitation ASA classification: 2-Mild systemic disease Is this case an emergency?: Yes
[2020-04-03] MEDS ORDERED: MIDAZOLAM 2 MG/2 ML VIAL IVP ONE (07:29)
[2020-04-03] MEDS ORDERED: KETAMINE 500 MG/10 ML VIAL IVP ONE (07:29)
[2020-04-03] MEDS ORDERED: PROPOFOL 200 MG/20 ML VIAL IVP ONE (07:29)
--- NOTE | 2020-04-03 10:21 | PROVIDER PROGRESS NOTE ---
Subjective - Prog Note Date Prog Note Date: 04/03/20 - Subjective Pt reports feeling: No change (mild to moderate cramping discomfort and blood per rectum) Objective - Vital Signs/Intake & Output Vital Signs: Vital Signs x48h Temp Pulse Resp BP Pulse Ox 04/03/20 10:00 80 17 109/68 98 04/03/20 09:00 81 12 105/55 L 100 04/03/20 08:40 68 15 104/59 L 99 04/03/20 08:20 74 14 105/61 100 04/03/20 08:05 76 15 103/57 L 100 04/03/20 07:00 67 15 122/80 04/03/20 06:00 65 15 98/47 L 04/03/20 05:00 59 L 15 112/62 04/03/20 04:00 36.7 C 67 9 L 99/60 100 04/03/20 03:00 63 16 109/62 Intake & Output: Intake & Output 03/31/20 04/01/20 04/02/20 04/03/20 23:59 23:59 23:59 23:59 Intake Total 4208.667 2524.000 1860.000 Output Total 1000 Balance 4208.667 9193.969 9569.000 - Objective General Appearance: positive: No acute distress, Alert Eyes Bilateral: positive: PERRL, EOMI Respiratory: positive: No respiratory distress Cardiovascular: positive: Regular rate & rhythm Abdomen: positive: No distention, Other (no guarding. benign abdomen) - Lab Results Fish Bones: 04/03/20 04:30 04/03/20 04:30 Other Labs: Lab Results x24hrs 04/03/20 04/03/20 04/03/20 Range/Units 07:17 04:30 04:30 WBC 8.2 (4.8-10.8) x10^3/uL RBC 2.26 L (4.70-6.10) 10^6/uL Hgb 6.6 L* (14.0-18.0) g/dL Hct 20.5 L (42.0-52.0) % MCV 90.7 (80.0-94.0) fL MCH 29.2 (27.0-31.0) pg MCHC 32.2 (32.0-36.0) g/dL RDW 14.8 (12.0-15.0) % Plt Count 341 (130-450) 10^3/uL MPV 9.2 (7.4-11.4) fL Neut # (Auto) 5.4 (1.5-6.6) 10^3/uL Lymph # (Auto) 1.8 (1.5-3.5) 10^3/uL [place] # (Auto) 0.7 (0.0-1.0) 10^3/uL Eos # (Auto) 0.1 (0.0-0.7) 10^3/uL Baso # (Auto) 0.0 (0.0-0.1) 10^3/uL Absolute Nucleated RBC 0.15 x10^3/uL Nucleated RBC % 1.8 /100WBC Manual Slide Review Indicated WBC Morphology NORMAL APPEARANCE (NORMAL) Platelet Estimate NORMAL (130-450,000) (NORMAL) Platelet Morphology NORMAL APPEARANCE (NORMAL) RBC Morph Micro Appear 1+ POLYCHROMASIA (NORMAL) Sodium 139 (135-145) mmol/L Potassium 3.6 (3.5-5.0) mmol/L Chloride 104 (101-111) mmol/L Carbon Dioxide 25 (21-32) mmol/L Anion Gap 10.0 (6-13) BUN 13 (6-20) mg/dL Creatinine 0.8 (0.6-1.2) mg/dL Estimated GFR (MDRD) 111 (>89) Glucose 93 (70-100) mg/dL Calcium 7.9 L (8.5-10.3) mg/dL Phosphorus 3.8 (2.5-4.6) mg/dL Magnesium 2.2 (1.7-2.8) mg/dL Coronavirus (PCR) Blood Type O POSITIVE Antibody Screen NEGATIVE Crossmatch IS Only See Detail 04/02/20 03/31/20 03/31/20 Range/Units 14:50 22:30 22:23 WBC (4.8-10.8) x10^3/uL RBC (4.70-6.10) 10^6/uL Hgb 7.4 L (14.0-18.0) g/dL Hct 23.8 L (42.0-52.0) % MCV (80.0-94.0) fL MCH (27.0-31.0) pg MCHC (32.0-36.0) g/dL RDW (12.0-15.0) % Plt Count (130-450) 10^3/uL MPV (7.4-11.4) fL Neut # (Auto) (1.5-6.6) 10^3/uL Lymph # (Auto) (1.5-3.5) 10^3/uL [place] # (Auto) (0.0-1.0) 10^3/uL Eos # (Auto) (0.0-0.7) 10^3/uL Baso # (Auto) (0.0-0.1) 10^3/uL Absolute Nucleated RBC x10^3/uL Nucleated RBC % /100WBC Manual Slide Review WBC Morphology (NORMAL) Platelet Estimate (NORMAL) Platelet Morphology (NORMAL) RBC Morph Micro Appear (NORMAL) Sodium (135-145) mmol/L Potassium (3.5-5.0) mmol/L Chloride (101-111) mmol/L Carbon Dioxide (21-32) mmol/L Anion Gap (6-13) BUN (6-20) mg/dL Creatinine (0.6-1.2) mg/dL Estimated GFR (MDRD) (>89) Glucose (70-100) mg/dL Calcium (8.5-10.3) mg/dL Phosphorus (2.5-4.6) mg/dL Magnesium (1.7-2.8) mg/dL Coronavirus (PCR) NEGATIVE Blood Type O POSITIVE Antibody Screen NEGATIVE Crossmatch IS Only See Detail Assessment/Plan - Problem List (1) Colitis Impression: clinically and by endoscopy he has ulcerative colitis. Colonoscopy reveals no significant hemorrhoids. Severe colitis rectum and sigmoid. mild colitis to splenic flexure and transverse colon. Multiple biopsies performed. diet as tolerated treatment for ulcerative colitis. perhaps 40 mg prednisone daily as a start gastroenterology consult, outpatient for ongoing care Follow up [facility] surgical care as needed
[2020-04-03] MEDS ORDERED: IRON DEXTRAN 1,000 MG in SODIUM CHLORIDE 0.9% 250 ML IV ONE (11:26)
--- NOTE | 2020-04-03 11:54 | PROVIDER PROGRESS NOTE ---
Subjective - Prog Note Date Prog Note Date: 04/03/20 Prog Note Time: 11:54 - Subjective Subjective: I am seeing him in the moments after returning from the operating room for his colonoscopy. He is sleeping. And that is all he wants to do. Does not want to answer questions at this time. is at the bedside and I filled her in on what we were finding. It looks like he has ulcerative colitis on colonoscope. Pathology is pending. Current Medications - Current Medications Current Medications: Active Medications Acetaminophen (Tylenol) 650 mg PO Q4HR PRN PRN Reason: Pain or Fever > 38C (100.4F) Last Admin: 04/01/20 16:16 Dose: 650 mg Documented by: Sodium Chloride (Normal Saline 0.9%) 1,000 mls @ 100 mls/hr IV .Q10H SUDARSHAN Last Infusion: 04/03/20 09:00 Dose: 100 mls/hr Documented by: Ferric Sodium Gluconate Complex 125 mg/ Sodium Chloride 110 mls @ 100 mls/hr IV ONCE SUDARSHAN Stop: 04/03/20 23:00 Methylprednisolone (Solu-Medrol (40mg Vial)) 40 mg IVP TID SUDARSHAN Morphine Sulfate (Morphine (Carpuject)) 2 mg IVP Q2HR PRN PRN Reason: Pain 8 to 10 Ondansetron HCl (Zofran Odt) 4 mg TL Q6HR PRN PRN Reason: Nausea / Vomiting Ondansetron HCl (Zofran Inj) 4 mg IVP Q6HR PRN PRN Reason: Nausea / Vomiting Pantoprazole Sodium (Protonix) 40 mg IVP QDAC [facility] Last Admin: 04/03/20 06:57 Dose: 40 mg Documented by: Sodium Chloride (Normal Saline Flush 0.9%) 10 ml IVP PRN PRN PRN Reason: NEEDED PER PROVIDER ORDERS Sodium Chloride (Normal Saline Flush 0.9%) 10 ml IVP 0100,0900,1700 [facility] Last Admin: 04/03/20 01:00 Dose: 10 ml Documented by: Acetaminophen [Tylenol Extra Strength] 500 mg PO PRN PRN 04/01/20 Cholecalciferol (Vitamin D3) [Vitamin D3] 25 mcg PO DAILY 04/01/20 Echinacea Purp [place],E.[place] Rt [Echinacea Extract 62.5 mg Cap] 62.5 mg PO DAILY 04/01/20 Multivit-Minerals/Folic Acid [Adult One Daily Multivit Tab] 1 tab PO DAILY 04/01/20 Smilax-3 Fatty Acids [Fish Oil Concentrate] 1,000 mg PO DAILY 04/01/20 Objective - Vital Signs/Intake & Output Reviewed Vital Signs: Yes Vital Signs: Vital Signs x48h Temp Pulse Pulse Resp BP BP Pulse Ox 04/03/20 11:00 69 12 107/72 98 04/03/20 10:50 36.9 C 76 13 104/65 04/03/20 10:26 36.3 C L 70 12 108/68 04/03/20 10:16 97.8 C H 76 16 109/68 04/03/20 10:00 80 17 109/68 98 04/03/20 09:00 81 12 105/55 L 100 04/03/20 08:40 68 15 104/59 L 99 04/03/20 08:20 74 14 105/61 100 04/03/20 08:05 76 15 103/57 L 100 04/03/20 07:00 67 15 122/80 04/03/20 06:00 65 15 98/47 L 04/03/20 05:00 59 L 15 112/62 04/03/20 04:00 36.7 C 67 9 L 99/60 100 Intake & Output: Intake & Output 03/31/20 04/01/20 04/02/20 04/03/20 23:59 23:59 23:59 23:59 Intake Total 4208.667 2524.000 1959.000 Output Total 1000 Balance 4208.667 7493.646 2382. - Objective General Appearance: positive: No acute distress, Other (Asleep but awakens easily to voice and touch on shoulder and goes right back to sleep) Eyes Bilateral: positive: PERRL, EOMI ENT: positive: Pharynx nml Neck: positive: No JVD. negative: Stiff neck Respiratory: positive: Chest non-tender. negative: Wheezes, Rales, Rhonchi Cardiovascular: positive: Regular rate & rhythm. negative: Systolic murmur, Gallop/S4, Friction rub Abdomen: positive: Non-tender, No organomegaly, Nml bowel sounds, Other (Mild gassy distention today) Skin: positive: Color nml, Dry, Pallor (Still present but much improved from admission) Extremities: positive: Non-tender, No pedal edema Neurologic/Psychiatric: positive: CN's nml (2-12), Motor nml, Disoriented to time - Lab Results Fish Bones: 04/03/20 04:30 04/03/20 04:30 Other Labs: Lab Results x24hrs 04/03/20 04/03/20 04/03/20 Range/Units 07:17 04:30 04:30 WBC 8.2 (4.8-10.8) x10^3/uL RBC 2.26 L (4.70-6.10) 10^6/uL Hgb 6.6 L* (14.0-18.0) g/dL Hct 20.5 L (42.0-52.0) % MCV 90.7 (80.0-94.0) fL MCH 29.2 (27.0-31.0) pg MCHC 32.2 (32.0-36.0) g/dL RDW 14.8 (12.0-15.0) % Plt Count 341 (130-450) 10^3/uL MPV 9.2 (7.4-11.4) fL Neut # (Auto) 5.4 (1.5-6.6) 10^3/uL Lymph # (Auto) 1.8 (1.5-3.5) 10^3/uL [place] # (Auto) 0.7 (0.0-1.0) 10^3/uL Eos # (Auto) 0.1 (0.0-0.7) 10^3/uL Baso # (Auto) 0.0 (0.0-0.1) 10^3/uL Absolute Nucleated RBC 0.15 x10^3/uL Nucleated RBC % 1.8 /100WBC Manual Slide Review Indicated WBC Morphology NORMAL APPEARANCE (NORMAL) Platelet Estimate NORMAL (130-450,000) (NORMAL) Platelet Morphology NORMAL APPEARANCE (NORMAL) RBC Morph Micro Appear 1+ POLYCHROMASIA (NORMAL) Sodium 139 (135-145) mmol/L Potassium 3.6 (3.5-5.0) mmol/L Chloride 104 (101-111) mmol/L Carbon Dioxide 25 (21-32) mmol/L Anion Gap 10.0 (6-13) BUN 13 (6-20) mg/dL Creatinine 0.8 (0.6-1.2) mg/dL Estimated GFR (MDRD) 111 (>89) Glucose 93 (70-100) mg/dL Calcium 7.9 L (8.5-10.3) mg/dL Phosphorus 3.8 (2.5-4.6) mg/dL Magnesium 2.2 (1.7-2.8) mg/dL Blood Type O POSITIVE Antibody Screen NEGATIVE Crossmatch IS Only See Detail 04/02/20 03/31/20 Range/Units 14:50 22:30 WBC (4.8-10.8) x10^3/uL RBC (4.70-6.10) 10^6/uL Hgb 7.4 L (14.0-18.0) g/dL Hct 23.8 L (42.0-52.0) % MCV (80.0-94.0) fL MCH (27.0-31.0) pg MCHC (32.0-36.0) g/dL RDW (12.0-15.0) % Plt Count (130-450) 10^3/uL MPV (7.4-11.4) fL Neut # (Auto) (1.5-6.6) 10^3/uL Lymph # (Auto) (1.5-3.5) 10^3/uL [place] # (Auto) (0.0-1.0) 10^3/uL Eos # (Auto) (0.0-0.7) 10^3/uL Baso # (Auto) (0.0-0.1) 10^3/uL Absolute Nucleated RBC x10^3/uL Nucleated RBC % /100WBC Manual Slide Review WBC Morphology (NORMAL) Platelet Estimate (NORMAL) Platelet Morphology (NORMAL) RBC Morph Micro Appear (NORMAL) Sodium (135-145) mmol/L Potassium (3.5-5.0) mmol/L Chloride (101-111) mmol/L Carbon Dioxide (21-32) mmol/L Anion Gap (6-13) BUN (6-20) mg/dL Creatinine (0.6-1.2) mg/dL Estimated GFR (MDRD) (>89) Glucose (70-100) mg/dL Calcium (8.5-10.3) mg/dL Phosphorus (2.5-4.6) mg/dL Magnesium (1.7-2.8) mg/dL Blood Type O POSITIVE Antibody Screen NEGATIVE Crossmatch IS Only See Detail Assessment/Plan - Problem List (1) Ulcerative colitis with rectal bleeding Impression: Rectosigmoiditis. Pt reports raissa gross amounts of blood with each stooling which began over a month ago. He also reports to occasionally pass some clots. His stool he reports to be mostly formed, otherwise is difficult to visualize due to amount of blood. He was diagnosed with external hemorrhoids at the age of 16. In his adult years, when hemorroids are bad he reports having to digitally push them into his rectum after defecating. There is a history of UC and polyps from his mother. CT of abd and pelvis show significant inflammation in the sigmoid and rectum that is continuous and moderate in severity. He was unable to go to the OR on the due to scheduling conflict. There literally was not enough slots in the day for him to get added on. As such he was scoped this morning by Dr. Beltran. He did have a colonoscopy to the cecum. Passage was not difficult and the prep was adequate. Findings were that of severe colitis that was severe in the rectum and progressed all the way up the sigmoid colon to the splenic flexure. Multiple biopsies were done and pending. I spoke to [facility] gastroenterology. He recommends we start him on Solu-Medrol. Assess his response to that. If he does not respond to the Solu-Medrol an appropriate amount of time, he may need Remicade. He also recommends that we give him an iron infusion since he is so depleted of iron as well as the blood packed cells were giving him. Plan: Iron infusion 1 more unit of blood today Solu-Medrol 40 mg IV push 3 times daily and then transition to p.o. as soon as possible Remicade? During this admission if he does not respond to steroids. If there is no response to the Remicade or the Solu-Medrol, he may need to be transferred to higher level of care (2) anemia, acute blood loss, from GI bleed Iron was low at 18. TIBC 349. Percent saturation 5%. Transferrin 249. [place] ritin low at 8.2. His B12 level is high. Reticulocyte count is 3.26. LDH is 101. The patient's hgb was 3.3 upon arrival to ED, aline to 4.4 after 4 units of PRBCs. RBC count is 1.25, while MCV is 90.4. As such, the overall impression is that of iron deficiency anemia from his blood loss. Pt appeared generally pale on admission with dry mucous membranes, no bruising or open wounds noted. Denies any history of chronic disease with the exception of hemorrhoids. Family hx of UC. Reports severe weakness and SOB upon exertion. Vital signs WNL, and he was not requiring supplemental oxygen at admission. Otherwise a generally healthy individual prior to this event. He has received 4 units of packed red cells 04/01, 1 unit 04/02 from hgb 6.7, and hemoglobin is 6.1 today. Today will be 6 units of blood. If this were a massive transfusion protocol he be getting platelets as well as FFP. Plan: -Transfuse 1 more uPRBCs -Recheck CBC after transfusion complete -monitor vitals for s/s of worsening anemia or increased oxygen requirements Consider platelets and FFP Qualifiers: Anemia type: other cause Other causes of anemia: other cause, not classified Qualified Code(s): D64.89 - Other specified anemias (3) Abdominal pain still present but improved. Conclusion/Plan: Pt describes the pain as a continuous dull aching across his lower abdomen signifying he needs to have a BM. However that pain intensifies to a severe cramping when defecating. That continues today. Every time he tries to have a BM, tenesmus ensues. Narcotics should be avoided due to his recent reports of constipation which may have triggers his symptoms. NSAIDS should be avoided to prevent further GI irritation. Continue previous plan of: -Protonix 40mg IVP -Acetaminophen 650mg PO PRN q4hr for pain -start diet to see if can eat Qualifiers: Abdominal location: lower abdomen, unspecified Qualified Code(s): R10.30 - Lower abdominal pain, unspecified (4) Subjective fever Conclusion/Plan: Self reported fevers while at home, highest being 104F. Patient has not had any fevers since arriving to . Recent dental work at the beginning of February may have resulted in an undiagnosed infection. WBC 8.1, ESR 79. He has not had a fever here. The highest temp he said is today at 37.8. White cell count remains Normal. Blood cultures were no growth after 1 day. Throat culture shows mixed oropharyngeal matthew. Plan: -Acetaminophen 650mg PO PRN q6hr for temp >38C -Monitor temp (5) Apnea Nocturnal desaturation test was done last night. He is having multiple episodes of apnea that last up to 2 to 3 minutes but he does not desaturate below 92% with this. Plan: Outpatient sleep study
[2020-04-03] MEDS ORDERED: FERRIC GLUCONATE 125 MG in SODIUM CHLORIDE 0.9% 100ML 100 ML IV SCH (12:00)
[2020-04-03] MEDS: methylPREDNISolone SUCCINATE 40 MG/ML VIAL IVP SCH ×2 (14:30→22:43)
[2020-04-03] MEDS ORDERED: LORazepam 2 MG/ML VIAL IVP PRN (18:42)
[2020-04-03 20:24] LABS: BASOPHILS % (AUTO) 0.3 %; HGB - HEMOGLOBIN 8.5 g/dL (14.0-18.0); LYMPHOCYTES # (AUTO) 1.1 10^3/uL (1.5-3.5); LYMPHOCYTES % (AUTO) 9.9 %; MEAN CORPUSCULAR HEMOGLOBIN 29.3 pg (27.0-31.0); MEAN CORPUSCULAR HGB CONC 32.4 g/dL (32.0-36.0); MEAN CORPUSCULAR VOLUME 90.3 fL (80.0-94.0); MEAN PLATELET VOLUME 8.8 fL (7.4-11.4); MONOCYTES # (AUTO) 0.3 10^3/uL (0.0-1.0); MONOCYTES % (AUTO) 2.8 %; NEUTROPHILS # (AUTO) 9.4 10^3/uL (1.5-6.6); NEUTROPHILS % (AUTO) 81.9 %; PLT - PLATELET COUNT 376 10^3/uL (130-450); RED CELL DISTRIBUTION WIDTH 14.6 % (12.0-15.0); WHITE BLOOD COUNT 11.5 x10^3/uL (4.8-10.8)
[2020-04-03 20:53] LABS: PLATELET ESTIMATE, MANUAL NORMAL (130-450,000) (NORMAL); PLATELET MORPHOLOGY NORMAL APPEARANCE (NORMAL)
[2020-04-03] MEDS: SODIUM CHLORIDE FLUSH 0.9% 10 ML SYRINGE IVP PRN (22:43)
[2020-04-04] MEDS: SODIUM CHLORIDE FLUSH 0.9% 10 ML SYRINGE IVP SCH ×4 (06:07→21:30)
[2020-04-04] MEDS: methylPREDNISolone SUCCINATE 40 MG/ML VIAL IVP SCH ×3 (06:07→22:16)
[2020-04-04 08:01] LABS: BASOPHILS % (AUTO) 0.4 %; HGB - HEMOGLOBIN 8.2 g/dL (14.0-18.0); LYMPHOCYTES # (AUTO) 1.5 10^3/uL (1.5-3.5); LYMPHOCYTES % (AUTO) 14.9 %; MEAN CORPUSCULAR HGB CONC 30.7 g/dL (32.0-36.0); MEAN CORPUSCULAR VOLUME 91.1 fL (80.0-94.0); MONOCYTES # (AUTO) 0.5 10^3/uL (0.0-1.0); NEUTROPHILS # (AUTO) 7.9 10^3/uL (1.5-6.6); NEUTROPHILS % (AUTO) 77.8 %; PLT - PLATELET COUNT 393 10^3/uL (130-450); RED BLOOD COUNT 2.93 10^6/uL (4.70-6.10); RED CELL DISTRIBUTION WIDTH 14.6 % (12.0-15.0); WHITE BLOOD COUNT 10.2 x10^3/uL (4.8-10.8)
[2020-04-04 08:05] LABS: CALCIUM 8.7 mg/dL (8.5-10.3); CREATININE 0.7 mg/dL (0.6-1.2); MAGNESIUM 2.6 mg/dL (1.7-2.8); PHOSPHORUS 5.2 mg/dL (2.5-4.6)
--- NOTE | 2020-04-04 13:21 | PROVIDER PROGRESS NOTE ---
Subjective - Prog Note Date Prog Note Date: 04/04/20 Prog Note Time: 13:48 - Subjective Subjective: He is in a much better place today. Yesterday he was angry, resentful. He did being here. Could not sleep. Could not eat. Wanted to leave. We wrote some orders to get him some sleep. Minimize blood draws and vital signs. And thankfully he is responded to the IV steroids and has not had a bloody bowel movement since yesterday. He has absolutely no abdominal pain and is tolerated a regular diet this morning. Current Medications - Current Medications Current Medications: Active Medications Acetaminophen (Tylenol) 650 mg PO Q4HR PRN PRN Reason: Pain or Fever > 38C (100.4F) Last Admin: 04/01/20 16:16 Dose: 650 mg Documented by: Lorazepam (Ativan Inj (Vial)) 0.5 mg IVP Q2H PRN PRN Reason: Anxiety Last Admin: 04/03/20 22:43 Dose: 0.5 mg Documented by: Methylprednisolone (Solu-Medrol (40mg Vial)) 40 mg IVP TID [facility] Stop: 04/04/20 23:00 Last Admin: 04/04/20 06:07 Dose: 40 mg Documented by: Morphine Sulfate (Morphine (Carpuject)) 2 mg IVP Q2HR PRN PRN Reason: Pain 8 to 10 Ondansetron HCl (Zofran Odt) 4 mg TL Q6HR PRN PRN Reason: Nausea / Vomiting Ondansetron HCl (Zofran Inj) 4 mg IVP Q6HR PRN PRN Reason: Nausea / Vomiting Prednisone (Deltasone) 60 mg PO DAILYWM [facility] Sodium Chloride (Normal Saline Flush 0.9%) 10 ml IVP PRN PRN PRN Reason: NEEDED PER PROVIDER ORDERS Last Admin: 04/03/20 22:43 Dose: 10 ml Documented by: Sodium Chloride (Normal Saline Flush 0.9%) 10 ml IVP 0100,0900,1700 [facility] Last Admin: 04/04/20 09:45 Dose: 10 ml Documented by: Acetaminophen [Tylenol Extra Strength] 500 mg PO PRN PRN 04/01/20 Cholecalciferol (Vitamin D3) [Vitamin D3] 25 mcg PO DAILY 04/01/20 Echinacea Purp [place],E.pelon Rt [Echinacea Extract 62.5 mg Cap] 62.5 mg PO DAILY 04/01/20 Multivit-Minerals/Folic Acid [Adult One Daily Multivit Tab] 1 tab PO DAILY 04/01/20 [place]-3 Fatty Acids [Fish Oil Concentrate] 1,000 mg PO DAILY 04/01/20 Objective - Vital Signs/Intake & Output Reviewed Vital Signs: Yes Vital Signs: Vital Signs x48h Temp Pulse Resp BP Pulse Ox 04/04/20 09:00 36.9 C 94 16 115/54 L 97 Intake & Output: Intake & Output 04/01/20 04/02/20 04/03/20 04/04/20 23:59 23:59 23:59 23:59 Intake Total 4208.667 2524.000 4350.333 420 Output Total 1000 400 Balance 4208.667 5257.981 8008.333 420 - Objective General Appearance: positive: No acute distress, Alert Eyes Bilateral: positive: PERRL ENT: positive: No signs of dehydration Neck: positive: No JVD Respiratory: positive: Chest non-tender, No respiratory distress. negative: Wheezes, Rales, Rhonchi Cardiovascular: positive: Regular rate & rhythm. negative: Gallop/S4, Friction rub Abdomen: positive: Non-tender, No organomegaly, Nml bowel sounds, No distention Skin: positive: Warm, Dry Extremities: positive: Non-tender, No pedal edema Neurologic/Psychiatric: positive: Oriented x3, CN's nml (2-12), Motor nml - Lab Results Fish Bones: 04/04/20 07:45 04/04/20 07:45 Other Labs: Lab Results x24hrs 04/04/20 04/04/20 04/03/20 Range/Units 07:45 07:45 20:17 WBC 10.2 11.5 H (4.8-10.8) x10^3/uL RBC 2.93 L 2.90 L (4.70-6.10) 10^6/uL Hgb 8.2 L 8.5 L (14.0-18.0) g/dL Hct 26.7 L 26.2 L (42.0-52.0) % MCV 91.1 90.3 (80.0-94.0) fL MCH 28.0 29.3 (27.0-31.0) pg MCHC 30.7 L 32.4 (32.0-36.0) g/dL RDW 14.6 14.6 (12.0-15.0) % Plt Count 393 376 (130-450) 10^3/uL MPV 9.0 8.8 (7.4-11.4) fL Neut # (Auto) 7.9 H 9.4 H (1.5-6.6) 10^3/uL Lymph # (Auto) 1.5 1.1 L (1.5-3.5) 10^3/uL [place] # (Auto) 0.5 0.3 (0.0-1.0) 10^3/uL Eos # (Auto) 0.0 0.0 (0.0-0.7) 10^3/uL Baso # (Auto) 0.0 0.0 (0.0-0.1) 10^3/uL Absolute Nucleated RBC 0.08 0.19 x10^3/uL Nucleated RBC % 0.8 1.7 /100WBC Manual Slide Review Indicated Platelet Estimate NORMAL (130-450,000) (NORMAL) Platelet Morphology NORMAL APPEARANCE (NORMAL) RBC Morph Micro Appear 1+ BASO STIPPLING (NORMAL) Sodium 136 (135-145) mmol/L Potassium 4.2 (3.5-5.0) mmol/L Chloride 102 (101-111) mmol/L Carbon Dioxide 25 (21-32) mmol/L Anion Gap 9.0 (6-13) BUN 9 (6-20) mg/dL Creatinine 0.7 (0.6-1.2) mg/dL Estimated GFR (MDRD) 129 (>89) Glucose 129 H (70-100) mg/dL Calcium 8.7 (8.5-10.3) mg/dL Phosphorus 5.2 H (2.5-4.6) mg/dL Magnesium 2.6 (1.7-2.8) mg/dL Stl C. diff Tox B Gene (NEGATIVE) Blood Type Antibody Screen Crossmatch IS Only 04/03/20 04/03/20 Range/Units 13:15 07:17 WBC (4.8-10.8) x10^3/uL RBC (4.70-6.10) 10^6/uL Hgb (14.0-18.0) g/dL Hct (42.0-52.0) % MCV (80.0-94.0) fL MCH (27.0-31.0) pg MCHC (32.0-36.0) g/dL RDW (12.0-15.0) % Plt Count (130-450) 10^3/uL MPV (7.4-11.4) fL Neut # (Auto) (1.5-6.6) 10^3/uL Lymph # (Auto) (1.5-3.5) 10^3/uL [place] # (Auto) (0.0-1.0) 10^3/uL Eos # (Auto) (0.0-0.7) 10^3/uL Baso # (Auto) (0.0-0.1) 10^3/uL Absolute Nucleated RBC x10^3/uL Nucleated RBC % /100WBC Manual Slide Review Platelet Estimate (NORMAL) Platelet Morphology (NORMAL) RBC Morph Micro Appear (NORMAL) Sodium (135-145) mmol/L Potassium (3.5-5.0) mmol/L Chloride (101-111) mmol/L Carbon Dioxide (21-32) mmol/L Anion Gap (6-13) BUN (6-20) mg/dL Creatinine (0.6-1.2) mg/dL Estimated GFR (MDRD) (>89) Glucose (70-100) mg/dL Calcium (8.5-10.3) mg/dL Phosphorus (2.5-4.6) mg/dL Magnesium (1.7-2.8) mg/dL Stl C. diff Tox B Gene NEGATIVE (NEGATIVE) Blood Type O POSITIVE Antibody Screen NEGATIVE Crossmatch IS Only See Detail ABX Reporting Has patient been on IV antibiotics over the past 48 hours?: No Assessment/Plan - Problem List (1) Ulcerative colitis with rectal bleeding Impression: Rectosigmoiditis. Pt reports raissa gross amounts of blood with each stooling which began over a month ago. He also reports to occasionally pass some clots. His stool he reports to be mostly formed, otherwise is difficult to visualize due to amount of blood. He was diagnosed with external hemorrhoids at the age of 16. In his adult years, when hemorroids are bad he reports having to digitally push them into his rectum after defecating. There is a history of UC and polyps from his mother. CT of abd and pelvis show significant inflammation in the sigmoid and rectum that is continuous and moderate in severity. He was unable to go to the OR on the due to scheduling conflict. There literally was not enough slots in the day for him to get added on. 04/03: As such he was scoped this morning by Dr. Beltran. He did have a colonoscopy to the cecum. Passage was not difficult and the prep was adequate. Findings were that of severe colitis that was severe in the rectum and progressed all the way up the sigmoid colon to the splenic flexure. Multiple biopsies were done and pending. I spoke to [facility] gastroenterology. He recommends we start him on Solu-Medrol. Assess his response to that. If he does not respond to the Solu-Medrol an appropriate amount of time, he may need Remicade. He also recommends that we give him an iron infusion since he is so depleted of iron as well as the blood packed cells were giving him. For today plan: Iron infusion 1 more unit of blood today Solu-Medrol 40 mg IV push 3 times daily and then transition to p.o. as soon as possible Remicade? During this admission if he does not respond to steroids. If there is no response to the Remicade or the Solu-Medrol, he may need to be transferred to higher level of care 04/04: Very happy to report response to the Solu-Medrol. He has not had any bowel movement since yesterday and is not had any rectal bleeding. His hemoglobin is remained stable at slightly above 8 yesterday and today. In reviewing up-to-date patient care, he has responded to the steroids. I do not need to give him topical steroids. So far no complications of fulminant ulcerative colitis, toxic megacolon or colonic perforation. In preparation for possible Remicade down the road, I did do hepatitis panel, stool cultures. Those are pending. I will start 60 mg of prednisone daily today. Stop his IV dosing tomorrow. Goal of therapy once he is in remission is to taper steroids. Taper the steroids 2 weeks after symptoms improve. Less than 6 stools daily, no or minimal blood, no abdominal pain. He is already there today, so I hope that he will be tapered starting next week. He will then need to see outpatient gastroenterology. I have already spoken to [facility] and hopefully he will get an appointment in [place]. At that time therapy can be begun and his choice will be infliximab, azathioprine, etc. (2) anemia, acute blood loss, from GI bleed Iron was low at 18. TIBC 349. Percent saturation 5%. Transferrin 249. Ferritin low at 8.2. His B12 level is high. Reticulocyte count is 3.26. LDH is 101. The patient's hgb was 3.3 upon arrival to ED, aline to 4.4 after 4 units of PRBCs. RBC count is 1.25, while MCV is 90.4. As such, the overall impression is that of iron deficiency anemia from his blood loss. Pt appeared generally pale on admission with dry mucous membranes, no bruising or open wounds noted. Denies any history of chronic disease with the exception of hemorrhoids. Family hx of UC. Reports severe weakness and SOB upon exertion. Vital signs WNL, and he was not requiring supplemental oxygen at admission. Ot erwise a generally healthy individual prior to this event. He has received 4 units of packed red cells 04/01, 1 unit 04/02 for 6.7 04/03: hemoglobin is 6.1 today. Today will be 6 units of blood. If this were a massive transfusion protocol he be getting platelets as well as FFP. -Transfuse 1 more uPRBCs -Recheck CBC after transfusion complete -monitor vitals for s/s of worsening anemia or increased oxygen requirements Consider platelets and FFP 04/04: Hemoglobin 8.5 at 8:00 last night, and 8.2 at 8:00 this morning. -No transfusion today -No platelets or FFP today (3) Abdominal pain Resolved Conclusion/Plan: Pt describes the pain as a continuous dull aching across his lower abdomen signifying he needs to have a BM. However that pain intensifies to a severe cramping when defecating. That continues today. Every time he tries to have a BM, tenesmus ensues. Narcotics should be avoided due to his recent reports of constipation which may have triggers his symptoms. NSAIDS should be avoided to prevent further GI irritation. -Protonix 40mg IVP will be changed to po -Acetaminophen 650mg PO PRN q4hr for pain -Regular diet started and tolerated today. Qualifiers: Abdominal location: lower abdomen, unspecified Qualified Code(s): R10.30 - Lower abdominal pain, unspecified (4) Subjective fever Conclusion/Plan: 04/03:Self reported fevers while at home, highest being 104F. Patient has not had any fevers since arriving to . Recent dental work at the beginning of February may have resulted in an undiagnosed infection. WBC 8.1, ESR 79. He has not had a fev er here. The highest temp he said was 04/03 at 37.8. White cell count remains Normal. Blood cultures were no growth after 1 day. Throat culture shows mixed oropharyngeal matthew. 04/04:Today he has no fever. Plan: -Acetaminophen 650mg PO PRN q6hr for temp >38C -Monitor temp (5) Apnea Nocturnal desaturation test was done 04/02 . He is having multiple episodes of apnea that last up to 2 to 3 minutes but he does not desaturate below 92% with this. Plan: Outpatient sleep study
[2020-04-04 13:30] LABS: HEPATITIS A IGM NON-REACTIVE (NON-REACTIVE); HEPATITIS B SURFACE ANTIGEN NON-REACTIVE (NON-REACTIVE); HEPATITIS C ANTIBODY NON-REACTIVE (NON-REACTIVE)
[2020-04-04] MEDS: predniSONE 20 MG TABLET PO SCH (14:06)
[2020-04-04] MEDS ORDERED: CYANOCOBALAMIN 1,000 MCG/ML VIAL IM ONE (18:04)
[2020-04-04 21:58] LABS: HGB - HEMOGLOBIN 8.2 g/dL (14.0-18.0)
[2020-04-05 08:13] LABS: BASOPHILS % (AUTO) 0.1 %; LYMPHOCYTES # (AUTO) 1.7 10^3/uL (1.5-3.5); LYMPHOCYTES % (AUTO) 12.4 %; MEAN CORPUSCULAR HEMOGLOBIN 29.2 pg (27.0-31.0); MEAN CORPUSCULAR HGB CONC 31.7 g/dL (32.0-36.0); MEAN PLATELET VOLUME 9.3 fL (7.4-11.4); MONOCYTES % (AUTO) 6.9 %; NEUTROPHILS % (AUTO) 79.8 %; PLT - PLATELET COUNT 411 10^3/uL (130-450); RED BLOOD COUNT 2.74 10^6/uL (4.70-6.10); RED CELL DISTRIBUTION WIDTH 14.6 % (12.0-15.0); WHITE BLOOD COUNT 13.8 x10^3/uL (4.8-10.8)
[2020-04-05 08:19] LABS: CALCIUM 8.7 mg/dL (8.5-10.3); CREATININE 0.6 mg/dL (0.6-1.2); MAGNESIUM 2.4 mg/dL (1.7-2.8); PHOSPHORUS 4.1 mg/dL (2.5-4.6)
[2020-04-05] MEDS: predniSONE 20 MG TABLET PO SCH (09:12)
[2020-04-05] MEDS: methylPREDNISolone SUCCINATE 40 MG/ML VIAL IVP SCH ×2 (09:12→14:15)
[2020-04-05] MEDS: SODIUM CHLORIDE FLUSH 0.9% 10 ML SYRINGE IVP SCH (09:13)
[2020-04-05] MEDS: SODIUM CHLORIDE FLUSH 0.9% 10 ML SYRINGE IVP PRN (09:16)
[2020-04-05 11:12] VITALS: BP 110/55
--- NOTE | 2020-04-05 12:15 | Discharge Plan ---
Discharge Plan Problem Reviewed?: Yes Disposition: Home, Self Care Condition: Stable Prescriptions: Hydrocortisone [Cortenema] 100 mg RC DAILY PRN #7 ml PRN Reason: Rectal Discomfort predniSONE [Deltasone] 60 mg PO DAILYWM #90 tablet Ferrous Gluconate 240 mg PO BID #60 tablet oxyCODONE [Roxicodone] 5 mg PO Q4-6H #30 tablet Diet: Regular Activity Restrictions: Activity as Tolerated Shower Restrictions: No Driving Restrictions: No Health Concerns: You presented to our emergency room with over a 2-year history of intermittent rectal bleeding. However starting approximately 2 months ago he began having daily rectal bleeding to the point that you could hear blood dripping from your rectum when he went to the bathroom. You were having multiple bloody bowel movements, abdominal pain, and fevers for the last 2 months. Hemoglobin in the emergency room was 3.3. Normal in a man your age is 14. We transfused you 6 units of blood. Gave you an iron infusion of 1000 mg of iron. Your hemoglobin is now 8. Colonoscopy was done and shows you to have severe colitis from the rectum to the corner of your large bowel as it turns underneath the spleen. We think you have ulcerative colitis. Pathology report is pending and your doctor will have to verify the final result when you see him or her. We started you on IV Solu-Medrol and you responded within 24 hours. You were having multiple bloody bowel movements, even in the hospital, and once we started the Solu- Medrol you stopped. Plan of Treatment: 1. Continue prednisone 60 mg a day until you see a linotype machinist. You will then be tapered. 2. As you are being tapered, the linotype machinist will start you on new therapy for ulcerative colitis. 3. You are still having severe tenesmus, or rectal/abdominal cramping, when you have a rare bloody bowel movement. As such I am sending you home with a hydrocortisone enema to be done once a day as needed. 4. I am also sending you home with oxycodone, and opiate, to help you with your pain. That is 1 tablet every 4-6 hours as needed. While here you needed very little pain medicine. 5. While here I gave you an iron infusion of 1000 mg of iron. This helped your bone marrow make blood. I would like you to take an iron tablet at home, and have written a prescription for that as well. 6. Ask your linotype machinist if you need B12 once a month temporarily. You did get one B12 injection while here. 7. I will be calling [facility] gastroenterology to see if you can get an appointment as soon as possible in the next 2 weeks. If [facility] gastroenterology cannot see you in the next 2 weeks, I will be calling [facility] to find a Dr. Aguiar, gastroenterology. Your mom sees Dr. Aguiar for her ulcerative colitis. Please call me at [phone] on Monday afternoon (after 3 pm) to find out which office I was able to get you into. 8. We have given you a list of primary care providers for you. Please establish yourself with a clinic as soon as possible. You need to have a primary care provider who will be the center and organizer of your healthcare. 9. You are having mild headaches now. They are much better than when you first came in. We are attributing them to your ulcerative colitis, but you can take [id number] Tylenol or a rare oxycodone if you need to. Care Goals: To go into remission of ulcerative colitis. Assessment: patient understands treatment and goals and will follow thru. No Smoking: If you smoke, Please STOP! Call for help.
--- NOTE | 2020-04-05 13:32 | DISCHARGE SUMMARY ---
"Discharge Summary Admit Date: 04/01/20 Discharge Date: 04/05/20 Discharging Provider: Debora Whalen MD Primary Care Provider: none. Code Status: Attempt Resuscitation Condition at Discharge: Stable Discharge Disposition: 01 Home, Self Care - DIAGNOSES Discharge Diagnoses with Status of Each Condition: 1. Ulcerative colitis and rectosigmoiditis with rectal bleeding 2. Acute blood loss anemia from lower GI bleed, resolved 3. Abdominal pain, present on admission, resolved 4. Fever 5. Apnea - HPI History of Present Illness: Patient is a 34yo male admitted from home via EMS through the ED for severe anemia and bright red blood per rectum. The patient has a history significant for hemorrhoids and abdominal cramping with stooling starting at the age of 16. Over the last couple of months the patient has noted a change in his diet to be less frequent and less healthy, which he attributes to a flare in his hemorrhoids. For the past month he has noted increasing blood in the toilet after having a BM, describing it to be raissa, bright red and fills the toilet. The patient also describes a constant dull aching across his lower abdomen which intensifies to sharp cramping while defecating. He reports having to strain to have a BM. In this past two weeks the patient has been more constipated, having only one BM every 2-3 days when normally he has one normal soft formed BM daily. Recently in the beginning of February he had dental work done, after which he was prescribed opioids which he attributes to initiating his constipation. He reports constant hemorrhoids for which he has to use his finger to replace them into his rectum after each BM. Two weeks ago he began to experience headaches which were constant and unrelieved with medication, intensifying gradually over the past two weeks. He became feverish approximately 1 week ago with the highest temp being 104 (measured at home). He attempted to treat this with ice packs and tylenol and was successful. Yesterday he began to feel numbness and tingling in his right arm, spreading to his chest and eventually his face, at that point he felt it necessary to call EMS. PE significant for fullness in abdomen, generalized pallor with reduced cap refill in fingers and toes, and dry mucous membranes. - Past Medical History Cardiovascular: reports: None Respiratory: reports: None Neuro: reports: None Endocrine/Autoimmune: reports: None GI: reports: Hemorrhoids (DX at age 16) : reports: None HEENT: reports: None Psych: reports: None Musculoskeletal: reports: None Derm: reports: None MRSA Hx?: No Other Past Medical History: Abdominal cramping with defecating beginning at age 16 - Family & Social History Family History: Mother: COPD/Emphysema, Father: , Brother: Alive and Well Family History Comment/Other: Mother-alive, hx of ulcerative colitis, polyps and COPD. Father-passed from lung ca at age 73 in 2017. Brother alive and well, lives in [place] Living arrangement: At home Living Situation: With spouse/s.o. Social History Notes: The patient lives at home with , recently , no children. 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 Reports not having consumed any alcohol in past month, prior to that he would have an occasional drink. Denies any recent tobacco use, previously would use a friends vape pen at social gatherings, has not done this in 2 years. - CONSULTS | PROCEDURES Procedures: 1. Head CT shows no acute intracranial process 2. Abdomen pelvis CT with contiguous inflammatory changes of the sigmoid colon and rectum. Fluid within these portions of the colon is present and the changes are moderate in severity. Pericolonic or intramural abscess is not found. Mild colonic obstipation elsewhere on the right and left. 3. Chest x-ray without acute pulmonary process 4. Acute hepatitis panel unreactive for hepatitis A, B, C. 5. Coronavirus PCR negative 6. Blood cultures negative after 2 days 7. Colonoscopy with severe colitis from rectum, through sigmoid bowel, which stops at the splenic flexure. Beyond the splenic flexure, to cecum, no colitis seen. Pathology is pending. Biopsies must be reviewed with next primary care provider or gastroenterology visit. - HOSPITAL COURSE Hospital Course: Our first concern was that of his severe anemia. The patient was identified as having a hemoglobin of 3.3 on admission. He received 4 units of blood the first day and after 4 units, hemoglobin aline to 6.7. He received 1 more unit on the second day. On the third day hemoglobin was 6.6 and he received a final and 6th unit. Patient also received 1000 mg of iron infusion. By the time of discharge hemoglobin was 8.0. He also received a single IM injection of B12. I would recommend that his CBC be checked a week after discharge by his new primary care provider or gastroenterology. Since he did not fall onto the criteria of massive transfusion protocol, he did not receive FFP or platelets. To delineate the source of his lower GI bleeding, colonoscopy was requested via surgical consult. Unfortunately the OR schedule was completely booked and the patient was not able to go until the third day of admission. Colonoscopy showed severe colitis, most likely, clinically, ulcerative colitis. The patient has a family history of colitis through his mother. The patient was then started on Solu-Medrol IV. He responded well. During the first 3 days of his stay he was having multiple, multiple bloody bowel movements with severe tenesmus. Once the steroids were started all of that went away. On the night before discharge he did have one bloody bowel movement with tenesmus. But this was a marked improvement of greater than 6 bowel movements a day. He was tolerating a regular diet. During his stay in the ICU, nursing noted that he was having apnea, that by the clock was lasting 2 minutes. We did overnight oximetry and the apneic episodes were documented but there was no severe hypoxemia. The lowest he got was 92%. He should probably get an outpatient sleep study. I did educate him that he will need oral steroids for the next week or so. He will then be tapered and started on remittive therapy through his brigadier. Since he still had tenesmus with bloody bowel movement, I gave him a prescription for a topical glucocorticoid to be used once a day as needed. He also continued to have an occasional light headache. It was much improved from the headache that he had on admission. It was severe enough that a CT of the head was done and negative. I recommend that he take mainly Tylenol for the headache, but oxycodone was also provided, #30. Iron tablets were prescribed for at least 30 days. And it would be up to the discretion of gastroenterology or primary care provider to give him a B12 shot. His mom is followed by Dr. Aguiar at [facility]. But [place] sake and as such I will try and make an attempt at getting him an appointment with [facility] gastroenterology [facility]. I will make that phone call on April 06. If I am unable to get him in an expeditious fashion, I will call [facility]. He is willing to go [place] for that appointment. At discharge patient is alert, oriented. The severe paleness that was present on admission is resolved. He is 5 feet 10 inches tall and weighs 83.5 kg. Temperature is 36.6. Pulse is 67 and regular. Blood pressure 110/55. Respirations 16 and unlabored. He is 100% on room air. Neck is supple, completely clear lungs on exam. A regular rate and rhythm without tachycardia or orthostasis. Abdomen exam is benign. Normal bowel sounds, no tenderness. Extremities are without edema and is ambulating in the room without any difficulty. He is tolerated a regular diet for 48 hours without any nausea vomiting or diarrhea. Greater than 30 minutes was spent coordinating discharge. - ALLERGIES Allergies/Adverse Reactions: Allergies Allergy/AdvReac Type Severity Reaction Status Date / Time No Known Drug Allergies Allergy Verified 03/31/20 22:29 - MEDICATIONS Home Medications: Ambulatory Orders Medication Instructions Recorded Confirmed Acetaminophen [Tylenol Extra 500 mg PO PRN PRN 04/01/20 04/01/20 Strength] Cholecalciferol (Vitamin D3) 25 mcg PO DAILY 04/01/20 04/01/20 [Vitamin D3] Echinacea Purp [place],E.pel[place] Rt 62.5 mg PO DAILY 04/01/20 04/01/20 [Echinacea Extract 62.5 mg Cap] Multivit-Minerals/Folic Acid 1 tab PO DAILY 04/01/20 04/01/20 [Adult One Daily Multivit Tab] [place]-3 Fatty Acids [Fish Oil 1,000 mg PO DAILY 04/01/20 04/01/20 Concentrate] Ferrous Gluconate 240 mg PO BID #60 tablet 04/05/20 Hydrocortisone [Cortenema] 100 mg RC DAILY PRN #7 ml 04/05/20 oxyCODONE [Roxicodone] 5 mg PO Q4-6H #30 tablet 04/05/20 predniSONE [Deltasone] 60 mg PO DAILYWM #90 tablet 04/05/20 - LABS Result Diagrams: 04/05/20 07:57 04/05/20 07:57"
== END 2020-04-05 13:50 | disposition home or self-care (01) | DRG 386 ==
LOC: EDUNIT# → ED 21:41 → ICU 04-01 07:15 → MS2 04-05 08:45
PROVIDERS: ADMIT Specialist; ATTEND Specialist
PROC: 30233N1 Transfusion of Nonautologous Red Blood Cells into Peripheral Vein, Percutaneous Approach (ICD-10-PCS; 2020-04-01)
PROC: 0DBE8ZX Excision of Large Intestine, Via Natural or Artificial Opening Endoscopic, Diagnostic (ICD-10-PCS; principal; 2020-04-03 07:30)
DX: K51.511 Left sided colitis with rectal bleeding (principal); D62 Acute posthemorrhagic anemia; R06.81 Apnea, not elsewhere classified; R50.9 Fever, unspecified; R51 Headache; K64.8 Other hemorrhoids; K64.4 Residual hemorrhoidal skin tags; Z20.828 Contact with and (suspected) exposure to other viral communicable diseases; Z83.79 Family history of other diseases of the digestive system
CPT/HCPCS: 36415; 70450; 71045; 74177; 80048; 80074; 80076; 80306; 80307; 80320; 80329; 81003; 81599; 82140; 82272; 82550; 82607; 82728; 83540; 83605; 83615; 83690; 83735; 83880; 84100; 84443; 84466; 84484; 85014; 85018; 85025; 85027; 85045; 85610; 85651; 85730; 86141; 86850; 86900; 86901; 86920; 87040; 87070; 87150; 87275; 87276; 87430; 87493; 87635; 93005; 94761; 96361; 96374; 96375; 99285; 99291; A9270; J0131; J2060; J2916; J7512; P9016; Q9967; 81001; 87045; 87046; 87086

== ENCOUNTER 2020-04-13 10:12 | Inpatient (IN) | payer SELFPAY ==
[2020-04-13] MEDS ORDERED: SODIUM CHLORIDE 0.9% 1,000 ML IV STA ×2 (10:44)
[2020-04-13] MEDS ORDERED: methylPREDNISolone SUCCINATE 125 MG/2 ML VIAL IVP STA (10:44)
[2020-04-13 10:48] LABS: BASOPHILS # (AUTO) 0.1 10^3/uL (0.0-0.1); BASOPHILS % (AUTO) 0.3 %; EOSINOPHILS # (AUTO) 0.1 10^3/uL (0.0-0.7); EOSINOPHILS % (AUTO) 0.4 %; LYMPHOCYTES # (AUTO) 4.9 10^3/uL (1.5-3.5); LYMPHOCYTES % (AUTO) 18.2 %; MEAN CORPUSCULAR HEMOGLOBIN 27.1 pg (27.0-31.0); MEAN CORPUSCULAR VOLUME 90.3 fL (80.0-94.0); MEAN PLATELET VOLUME 9.4 fL (7.4-11.4); MONOCYTES # (AUTO) 3.5 10^3/uL (0.0-1.0); NEUTROPHILS # (AUTO) 17.7 10^3/uL (1.5-6.6); PLT - PLATELET COUNT 500 10^3/uL (130-450); RED BLOOD COUNT 2.36 10^6/uL (4.70-6.10); RED CELL DISTRIBUTION WIDTH 14.3 % (12.0-15.0); WHITE BLOOD COUNT 26.8 x10^3/uL (4.8-10.8)
[2020-04-13 10:53] LABS: HGB - HEMOGLOBIN 6.4 g/dL (14.0-18.0)
[2020-04-13 10:59] LABS: ALBUMIN 3.1 g/dL (3.2-5.5); ALBUMIN/GLOBULIN RATIO 0.9 (1.0-2.2); BILIRUBIN,TOTAL 0.5 mg/dL (0.2-1.0); CALCIUM 9.1 mg/dL (8.5-10.3); CREATININE 0.9 mg/dL (0.6-1.2); TOTAL PROTEIN 6.4 g/dL (6.7-8.2)
--- NOTE | 2020-04-13 11:05 | ED Physician Documentation ---
History of Present Illness - Stated complaint Stated Complaint: WEAKNESS - Chief complaint Chief Complaint: General - History obtained from History obtained from: Patient - History of Present Illness Timing: Today Pain level max: 0 Pain level now: 0 - Additonal information Additional information: 34-year-old male presents the emergency department after being diagnosed with ulcerative colitis recently. Had to have 6 units of blood transfused. He is currently on steroids. Nothing makes it better or worse. He started feeling weak, lightheaded and dizzy again today. He states his last hemoglobin was 7.4. He states he has had very little rectal bleeding now. Review of Systems Ten Systems: 10 systems reviewed and negative Constitutional: denies: Fever, Chills Nose: denies: Rhinorrhea / runny nose, Congestion Skin: denies: Rash Musculoskeletal: denies: Neck pain, Back pain Neurologic: denies: Focal weakness, Numbness, Headache PD PAST MEDICAL HISTORY - Past Medical History Cardiovascular: None Respiratory: None Neuro: None Endocrine/Autoimmune: None GI: Hemorrhoids : None HEENT: None Psych: None Musculoskeletal: None Derm: None - Past Surgical History Past Surgical History: No - Present Medications Home Medications: Ambulatory Orders Medication Instructions Recorded Confirmed Acetaminophen [Tylenol Extra 500 mg PO PRN PRN 04/01/20 04/13/20 Strength] Cholecalciferol (Vitamin D3) 25 mcg PO DAILY 04/01/20 04/13/20 [Vitamin D3] Multivit-Minerals/Folic Acid 1 tab PO DAILY 04/01/20 04/13/20 [Adult One Daily Multivit Tab] [place]-3 Fatty Acids [Fish Oil 1,000 mg PO DAILY 04/01/20 04/13/20 Concentrate] Ferrous Gluconate 240 mg PO BID #60 tablet 04/05/20 04/13/20 Hydrocortisone [Cortenema] 100 mg RC DAILY PRN #7 ml 04/05/20 04/13/20 oxyCODONE [Roxicodone] 5 mg PO Q4-6H #30 tablet 04/05/20 04/13/20 predniSONE [Deltasone] 60 mg PO DAILYWM #90 tablet 04/05/20 04/13/20 Mesalamine [Canasa] 1,000 mg RC QPM 04/13/20 04/13/20 Mesalamine [Mesalamine Dr] 800 mg PO TID 04/13/20 04/13/20 - Allergies Allergies/Adverse Reactions: Allergies Allergy/AdvReac Type Severity Reaction Status Date / Time No Known Drug Allergies Allergy Verified 04/13/20 10:41 - Social History Does the pt smoke?: No Smoking Status: Never smoker Does the pt drink ETOH?: Yes Does the pt have substance abuse?: No - Immunizations Immunizations are current?: Yes - POLST Patient has POLST: No POLST Status: Full Code PD ED PE NORMAL - Vitals Vital signs reviewed: Yes - General General: Alert and oriented X 3, No acute distress, Other (pale appearing) - HEENT HEENT: Moist mucous membranes - Neck Neck: Supple, no meningeal sign - Cardiac Cardiac: RRR - Respiratory Respiratory: No respiratory distress, Clear bilaterally - Derm Derm: Warm and dry - Neuro Neuro: Alert and oriented X 3 - Psych Psych: Normal mood, Normal affect Results - Vitals Vitals: Vital Signs - 24 hr 04/13/20 04/13/20 04/13/20 10:20 10:29 10:41 Temperature 37.4 C Heart Rate 116 H 90 104 H Respiratory 20 13 13 Rate Blood Pressure 96/57 L 112/65 111/67 O2 Saturation 100 100 100 04/13/20 11:01 Temperature Heart Rate 93 Respiratory 11 L Rate Blood Pressure 110/66 O2 Saturation 100 Oxygen O2 Source Room air - Labs Labs: Laboratory Tests 04/13/20 04/13/20 04/13/20 10:35 10:35 10:35 WBC 26.8 H RBC 2.36 L Hgb 6.4 L* Hct 21.3 L MCV 90.3 MCH 27.1 MCHC 30.0 L RDW 14.3 Plt Count 500 H MPV 9.4 Neut # (Auto) 17.7 H Lymph # (Auto) 4.9 H Stokes # (Auto) 3.5 H Eos # (Auto) 0.1 Baso # (Auto) 0.1 Absolute Nucleated RBC 0.48 Nucleated RBC % 1.8 Manual Slide Review Indicated Sodium 134 L Potassium 3.4 L Chloride 97 L Carbon Dioxide 25 Anion Gap 12.0 BUN 24 H Creatinine 0.9 Estimated GFR (MDRD) 97 Glucose 147 H Calcium 9.1 Total Bilirubin 0.5 AST 13 ALT 18 Alkaline Phosphatase 46 Total Protein 6.4 L Albumin 3.1 L Globulin 3.3 Albumin/Globulin Ratio 0.9 L Lipase 19 L Blood Type O POSITIVE Antibody Screen NEGATIVE Crossmatch IS Only See Detail PD MEDICAL DECISION MAKING - ED course Complexity details: reviewed old records, reviewed results, re-evaluated patient, considered differential, d/w patient, d/w cycle consultant ED course: 34-year-old male recently admitted for severe anemia and a diagnosis of ulcerative colitis presents with weakness. His hemoglobin is back down to 6.4. Will need blood transfusion. Given Solu-Medrol, discussed the case with Dr. Christian, hospitalist who accepts. This document was made in part using voice recognition software. While efforts are made to proofread this document, sound alike and grammatical errors may occur. Departure - Departure Disposition: 66 [facility] DC/Xfer Clinical Impression: Anemia Qualifiers: Anemia type: unspecified type Qualified Code(s): D64.9 - Anemia, unspecified Ulcerative colitis Qualifiers: Ulcerative colitis location: unspecified ulcerative colitis location Digestive disease complication type: with rectal bleeding Qualified Code(s): K51.911 - Ulcerative colitis, unspecified with rectal bleeding Condition: Stable Discharge Date/Time: 04/13/20 11:58
[2020-04-13] MEDS ORDERED: ACETAMINOPHEN 325 MG TABLET PO PRN (11:35)
[2020-04-13] MEDS ORDERED: ONDANSETRON 4 MG/2 ML VIAL IVP PRN (11:35)
[2020-04-13] MEDS ORDERED: SODIUM CHLORIDE FLUSH 0.9% 10 ML SYRINGE IVP PRN (11:35)
[2020-04-13] MEDS ORDERED: HYDROCORTISONE 100 MG/60 ML ENEMA PR PRN (11:40)
[2020-04-13] MEDS: predniSONE 20 MG TABLET PO SCH (12:47)
--- NOTE | 2020-04-13 12:57 | PHARMACY PROGRESS NOTE ---
- Best Possible Medication History Admit Date and Time: 04/13/20 1131 Processed by: Pharmacy Medication History completed: Yes Patient Interview: Completed Secondary Source(s): Pharmacy records As the person ultimately responsible for medication therapy, providers are able to order a medication from an existing home medication list in [facility] via the "Reconcile Routine" prior to Confirmation of that medication by customer support manager. Such practice is discouraged except when the physician, in their clinical judgment, deems that a medical need exists for a medication without regard to previous use.
[2020-04-13 15:14] LABS: BILIRUBIN,URINE NEGATIVE (NEGATIVE); GLUCOSE, URINE (UA) NEGATIVE (NEGATIVE); KETONES,URINE (UA) NEGATIVE (NEGATIVE); LEUKOCYTE ESTERASE, URINE NEGATIVE (NEGATIVE); NITRITE,URINE NEGATIVE (NEGATIVE); OCCULT BLOOD,URINE NEGATIVE (NEGATIVE); PROTEIN,URINE NEGATIVE (NEGATIVE); UROBILINOGEN,URINE 0.2 (NORMAL) E.U./dL (NORMAL)
[2020-04-13 15:15] LABS: CLARITY,URINE CLEAR (CLEAR)
--- NOTE | 2020-04-13 16:55 | CONSULTATION NOTE ---
Referring Provider Name of Referring Provider:: Dr. Brittani Harden MD Consult Date: 04/13/20 Chief Complaint - Chief Complaint Chief Complaint: Ulcerative colitis with bright red blood per rectum History of Present Illness - Admitted From Admitted From:: Home - History Obtained From Records Reviewed: EMR History obtained from: Patient Exam Limitations: None - History of Present Illness HPI Comment/Other: 34-year-old male with longstanding history of bloody diarrhea since his late teens who is notable for a significant family history of ulcerative colitis in both his mother and aunt. Patient recently underwent colonoscopy consistent with ulcerative colitis and started on high-dose steroids for significant inflammatory changes. He presents with lethargy, worsening hematochezia, and concerns for failure of medical management. He is pending evaluation by gastroenterology within a week. History - Past Medical History Cardiovascular: reports: None Respiratory: reports: None Neuro: reports: None Endocrine/Autoimmune: reports: None GI: reports: Hemorrhoids : reports: None HEENT: reports: None Psych: reports: None Musculoskeletal: reports: None Derm: reports: None MRSA Hx?: No - Family & Social History Family History: Mother: COPD/Emphysema, Father: , Brother: Alive and Well Family History Comment/Other: Mother-alive, hx of ulcerative colitis, polyps and COPD. Father-passed from lung ca at age 73 in 2017. Brother alive and well, lives in [place] Social History Notes: The patient lives at home with , recently , no children. 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 Reports not having consumed any alcohol in past month, prior to that he would have an occasional drink. Denies any recent tobacco use, previously would use a friends vape pen at social gatherings, has not done this in 2 years. - Substance History Use: Uses substance without health or social issues: NONE - POLST Patient has POLST: No POLST Status: Full Code Meds/Allgy - Home Medications Home Medications: Ambulatory Orders Medication Instructions Recorded Confirmed Acetaminophen [Tylenol Extra 500 mg PO PRN PRN 04/01/20 04/13/20 Strength] Cholecalciferol (Vitamin D3) 25 mcg PO DAILY 04/01/20 04/13/20 [Vitamin D3] Multivit-Minerals/Folic Acid 1 tab PO DAILY 04/01/20 04/13/20 [Adult One Daily Multivit Tab] [place]-3 Fatty Acids [Fish Oil 1,000 mg PO DAILY 04/01/20 04/13/20 Concentrate] Ferrous Gluconate 240 mg PO BID #60 tablet 04/05/20 04/13/20 Hydrocortisone [Cortenema] 100 mg RC DAILY PRN #7 ml 04/05/20 04/13/20 predniSONE [Deltasone] 60 mg PO DAILYWM #90 tablet 04/05/20 04/13/20 Mesalamine [Canasa] 1,000 mg RC QPM 04/13/20 04/13/20 Mesalamine [Mesalamine Dr] 800 mg PO TID 04/13/20 04/13/20 Pantoprazole [Protonix] 40 mg PO QDAC #30 tablet 04/15/20 Zolpidem [Ambien] 5 mg PO QPM PRN #7 tablet 04/15/20 oxyCODONE [Roxicodone] 5 mg PO Q6H PRN #20 tablet 04/15/20 - Allergies Allergies/Adverse Reactions: Allergies Allergy/AdvReac Type Severity Reaction Status Date / Time No Known Drug Allergies Allergy Verified 04/13/20 10:41 Review of Systems - Constitutional Constitutional: reports: Fatigue, Weakness - Eyes Eyes: denies: Pain - Ears, Nose & Throat Ears, Nose & Throat: denies: Ear pain - Cardiovascular Cariovascular: denies: Irregular heart rate, Palpitations, Chest pain - Respiratory Respiratory: denies: Cough, Sputum production, Wheezing, Hemoptysis, Orthopnea - Gastrointestinal Gastrointestinal: reports: Abdominal pain, Abdominal distention, Black stools, Bloody stools. denies: Nausea, Vomiting - Neurological Neurological: denies: General weakness, Numbness - Hematologic/Lymphatic Hematologic/Lymphatic: reports: Anemia Exam - Vital Signs Vital Signs: Vital Signs x48h Temp Pulse Pulse Pulse Resp BP BP 04/13/20 16:28 36.9 C 70 16 106/50 L 04/13/20 16:25 36.9 C 70 16 106/50 L 04/13/20 15:44 36.8 C 78 18 106/60 04/13/20 13:56 37.1 C 80 18 116/56 L 04/13/20 13:26 37.6 C H 91 18 111/66 04/13/20 12:06 36.9 C 76 18 105/70 04/13/20 11:01 93 11 L 110/66 04/13/20 10:41 104 H 13 111/67 04/13/20 10:29 90 13 112/65 04/13/20 10:20 37.4 C 116 H 20 96/57 L Pulse Ox 04/13/20 16:28 04/13/20 16:25 04/13/20 15:44 99 04/13/20 13:56 04/13/20 13:26 04/13/20 12:06 100 04/13/20 11:01 100 04/13/20 10:41 100 04/13/20 10:29 100 04/13/20 10:20 100 - Physical Exam General Appearance: positive: No acute distress, Alert Eyes Bilateral: positive: Normal inspection, PERRL, EOMI Neck: positive: Nml inspection Respiratory: positive: Chest non-tender, No respiratory distress, Breath sounds nml. negative: Wheezes, Rales, Rhonchi Cardiovascular: positive: Regular rate & rhythm Abdomen: positive: Non-tender, Other (No peritoneal signs, no rebound, no guarding, mild tenderness to very deep palpation.). negative: Tenderness, Guarding, Rebound Skin: positive: Pallor Extremities: positive: Non-tender, Full ROM Neurologic/Psychiatric: positive: Oriented x3, CN's nml (2-12) Conclusion/Plan - Diagnosis Diagnosis: 1. Severe ulcerative colitis. 2. acute on chronic blood loss anemia. 3. Immunocompromise state on high-dose prednisone. 4. Failure of medical management - Plan Plan: 34-year-old male with history of bloody diarrhea recently evaluated by lower endoscopy with pathology proven ulcerative colitis. Reports longstanding sympto ms since he was 18 however has never undergone lower endoscopy. Extensive family history including his mother and his aunt both of whom are currently medicated for chronic ulcerative colitis and associated symptoms. Patient reports extensive stressors in his life right now. 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 He was discharged after recent admission on 60 mg of prednisone daily with some improvement in the frequency of stooling however he continued to have bloody bowel movements. Prior to admission his symptoms were 6 bloody bowel movements daily consistent with severe if not fulminant colitis. He presents with acute on chronic blood loss anemia. He reports associated lethargy and fatigue. I believe this patient is truly representing what is likely medical failure in the setting of ulcerative colitis. I think salvage with Remicade should be considered and dosed as soon as possible to see if this could possibly which would be 5 mg/kg single dose. Patient will need QuantiFERON gold to rule out any history of tuberculosis as well as hepatitis panel which I will order. Is as follows: 1. Gastrointestinal - n.p.o., bowel rest, GI prophylaxis, continue steroids, Remicade, consider TPN given the patient has not been able to tolerate oral intake for several days and in anticipation of possible surgical resection. 2. Immune therapy -continue steroids as the patient has been refractory, Remicade, obtain QuantiFERON gold and hepatitis panel as well as chest x-ray. 3. Patient may be candidate for operative intervention for refractory disease which would include a total abdominal colectomy with end ileostomy leaving the rectum spared for possible completion proctectomy and ileoanal J-pouch creation. This would be a 3 stage procedure given the significance of the patient's steroid dependence. And we would necessarily want to wean him from this prior to any further intervention. 4. Transfuse as necessary given symptomatic anemia. Voice recognition software was used in the dry wall installations mechanic of this note. Please note and accept apologies for any inadvertent errors that have dated careful proving and editing. Thank you for allowing me to participate with you in the care of this patient. - Lab Results Fish Bones: 04/15/20 13:35 04/15/20 07:31
--- NOTE | 2020-04-13 18:56 | HISTORY & PHYSICAL EXAMINATION ---
DATE OF SERVICE: 04/13/2020 Physician: Brittani Christian MD HISTORY OF PRESENT ILLNESS: This is a 34-year-old white male with a history of recently diagnosed severe ulcerative colitis. Patient states that he last had a colonoscopy approximately 3 years ago. He says this showed nothing. About 2 years ago, he started to have rectal bleeding and was told this was probably hemorrhoids and he did not have another colonoscopy. He would get intermittent rectal bleeding with tenasmus and pain in that area intermittently, which was getting worse over the past 2 months. He was admitted here approximately 2 weeks ago for severe lethargy, generalized weakness and acute onset of right- sided body weakness and tingling. The concern was that he was having a stroke of his right side. In the ER then, he was found to have the rectal bleeding and a hemoglobin of 3 on that admission. He required a total of 6 units of blood transfused and underwent colonoscopy after several days, which showed severe ulcerative colitis. He was sent home on oral prednisone, steroid enemas, pain medication with narcotics, oral iron and advised on a diet that would be low in fiber as well as no diary. Patient did follow these recommendations and was compliant with all of his new medicines. He has not noticed much improvement in the rectal bleeding, which comes out in a stream when he moves his bowels, and abdominal cramps as well as rectal pain. Yesterday, he started to get weak again and today he was so weak that he presented to the emergency room. He was found to have a hemoglobin today of 6.4 and is tachycardic and hypotensive. Patient is being admitted for recurrence of GI blood loss anemia with hypotension and tachycardia. Patient was scheduled to see a superintendent stevedoring coming up this Monday, which is in 4 days. He has seen his PCP since the discharge from the last hospitalization, but has not met the superintendent stevedoring yet. His PCP ordered the iron to be taken twice a day not once and prescribed new Mesalamine, which was just picked up today and not started yet. PAST MEDICAL HISTORY 1. Recently diagnosed ulcerative colitis. 2. Right-sided weakness and numbness 2 weeks ago, which resolved without any diagnosis of stroke or TIA. 3. Recurrent headaches, which are recent. 4. Insomnia, especially worse since he has been sent home on prednisone. FAMILY HISTORY: Mother has ulcerative colitis. SOCIAL HISTORY: Patient is a nonsmoker, who quit smoking 15 years ago, drinks very rare alcohol socially, uses no illicit drugs. He lives with his and is recently . 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 ALLERGIES: NONE. MEDICATIONS 1. Tylenol p.r.n. 2. Vitamin D3 daily. 3. Mesalamine 1000 mg every night, which is supposed to be started tonight, ordered by his PCP. 4. Also 400 mg mesalamine t.i.d. also just ordered and not yet started. 5. Fish oil capsule daily. 6. Oxycodone 5 mg every 4-6 hours p.r.n. severe pain. 7. Ferrous gluconate 240 mg b.i.d. 8. Hydrocortisone enema 100 mg per 60 mL every night. 9. Multivitamin with folic acid and minerals daily. 10. Prednisone 60 mg daily. REVIEW OF SYSTEMS: Patient now has bowel movements twice a day. He knows to put in the enema at night after his last bowel movement. A comprehensive review of systems was performed and the pertinent positives are listed, the rest are negative. PHYSICAL EXAMINATION GENERAL: White male, who is pale and appears very fatigued. VITAL SIGNS: Blood pressure 96/57, heart rate 116 in sinus tachycardia, afebrile, room air saturation 100%, respiratory rate 20. HEENT: Reveals pallor, but oral mucosa is moist. NECK: Without JVD in a vertical position. CHEST: Clear. HEART: Normal heart sounds. ABDOMEN: Soft, nontender. Increased bowel sounds present. No organomegaly. No guarding or rebound. EXTREMITIES: No clubbing, cyanosis or edema. NEUROLOGIC: Intact. LABORATORY DATA: Sodium 134, potassium 3.4, BUN 24, creatinine 0.9. Normal liver tests. Albumin low at 3.1. Lipase low at 19. White blood count 26.8, hemoglobin 6.4, platelet count elevated at 500. No INR was done. Urinalysis was unremarkable. No imaging was done. No EKG was done. IMPRESSION/DIAGNOSES 1. Nontraumatic hemorrhagic shock. 2. Anemia due to gastrointestinal blood loss. 3. Ulcerative colitis, severe per recent colonoscopy. 4. Insomnia. 5. Headaches. 6. Prerenal azotemia. 7. Hyponatremia. 8. Hypokalemia. 9. Elevated white blood count, suspect from hemoconcentration or a phase reactant as there is no fever. PLAN: Admit patient to inpatient status. Continue with IV hydration at a moderate rate and also give blood transfusions, 2 units have been ordered now. Follow his hemoglobin q.12 hours. Follow the white blood count, send stool for C. difficile if it remains elevated. Continue with his current management for the ulcerative colitis including the newly prescribed Mesalamine and the oral prednisone. Offer sleeping medication for his insomnia. Continue with pain medication for his headaches. Obtain general surgery consult for further recommendations regarding management of ulcerative colitis. Dr. Steve, of General Surgery, spoke to me regarding those recommendations, which are to start a dose of Remicade after he is worked up for and ruled out from having TB and hepatitis. The Pharmacist here called me, that Remicade cannot be given as an inpatient because no nurses are trained to administer it. It would have to be given in the [facility] [place] as an outpatient. The general surgeon recommends de-escalating his ordered low-fiber, soft diet down to a liquid diet. Will change the soft low fiber diet to a pured diet, for bowel rest. Patient is very eager to see his new superintendent stevedoring for evaluation and further management, which is still planned for 4 days from now. General Surgeon here has said that the patient may be heading for significant colon surgery with such severe ulcerative colitis. DEEP VENOUS THROMBOSIS PROPHYLAXIS: SCDs. CODE STATUS: FULL CODE. ATTESTATION: Patient is expected to be discharged or transferred to another facility within 96 hours: Yes. cc: HYACINTH Cueva TD: 04/13/2020 18:22 JUAN
[2020-04-13] MEDS: oxyCODONE 5 MG TABLET PO SCH (19:04)
[2020-04-13] MEDS: SODIUM CHLORIDE FLUSH 0.9% 10 ML SYRINGE IVP SCH ×2 (19:37→23:45)
[2020-04-13] MEDS: D5NS W/20 MEQ KCL 1,000 ML IV SCH (19:37)
[2020-04-13] MEDS: MESALAMINE 1000 MG PR SCH (21:10)
[2020-04-13] MEDS: FERROUS GLUCONATE 324 MG TABLET PO SCH (21:10)
[2020-04-13] MEDS: ZOLPIDEM 5 MG TABLET PO PRN (22:40)
[2020-04-13] MEDS: MESALAMINE 800 MG PO SCH (22:41)
[2020-04-14] MEDS: oxyCODONE 5 MG TABLET PO SCH ×4 (02:39→19:01)
[2020-04-14] MEDS: HYDROcod/ACETAM 5/325 MG TABLET PO PRN ×3 (06:39→20:13)
[2020-04-14] MEDS: PANTOPRAZOLE 40 MG TABLET PO SCH (06:39)
[2020-04-14] MEDS: MESALAMINE 800 MG PO SCH ×3 (06:48→22:29)
[2020-04-14 08:22] LABS: BASOPHILS # (AUTO) 0.1 10^3/uL (0.0-0.1); BASOPHILS % (AUTO) 0.4 %; EOSINOPHILS # (AUTO) 0.1 10^3/uL (0.0-0.7); EOSINOPHILS % (AUTO) 0.4 %; LYMPHOCYTES # (AUTO) 3.3 10^3/uL (1.5-3.5); LYMPHOCYTES % (AUTO) 19.7 %; MEAN CORPUSCULAR HGB CONC 30.6 g/dL (32.0-36.0); MEAN CORPUSCULAR VOLUME 88.5 fL (80.0-94.0); MEAN PLATELET VOLUME 9.2 fL (7.4-11.4); MONOCYTES # (AUTO) 1.9 10^3/uL (0.0-1.0); MONOCYTES % (AUTO) 11.2 %; NEUTROPHILS # (AUTO) 11.1 10^3/uL (1.5-6.6); NEUTROPHILS % (AUTO) 67.4 %; PLT - PLATELET COUNT 354 10^3/uL (130-450); RED BLOOD COUNT 2.44 10^6/uL (4.70-6.10); RED CELL DISTRIBUTION WIDTH 14.6 % (12.0-15.0); WHITE BLOOD COUNT 16.5 x10^3/uL (4.8-10.8)
[2020-04-14 08:26] LABS: CALCIUM 8.5 mg/dL (8.5-10.3); CREATININE 0.9 mg/dL (0.6-1.2); MAGNESIUM 2.2 mg/dL (1.7-2.8); PHOSPHORUS 3.7 mg/dL (2.5-4.6)
[2020-04-14 08:34] LABS: HGB - HEMOGLOBIN 6.6 g/dL (14.0-18.0)
[2020-04-14] MEDS: PRENATAL VITAMIN TABLET PO SCH (08:38)
[2020-04-14] MEDS: predniSONE 20 MG TABLET PO SCH (08:38)
[2020-04-14] MEDS: CHOLECALCIFEROL 25 MCG TABLET PO SCH (08:38)
[2020-04-14] MEDS: FERROUS GLUCONATE 324 MG TABLET PO SCH ×2 (08:38→21:05)
--- NOTE | 2020-04-14 08:44 | XRAY Report ---
PROCEDURE: Chest 1 View X-Ray INDICATIONS: Dyspnea. Leukocytosis. TECHNIQUE: One view of the chest was acquired. COMPARISON: Chest xray FINDINGS: Surgical changes and devices: None. Lungs and pleura: No pleural effusions or pneumothorax. Lungs are clear. Mediastinum: Mediastinal contours appear normal. Heart size is normal. Bones and chest wall: No suspicious bony lesions. Overlying soft tissues appear unremarkable. IMPRESSION: No acute pulmonary process. Reviewed by: Joselyn Smith MD on 04/14/2020 8:43 AM PDT Approved by: Joselyn Smith MD on 04/14/2020 8:43 AM PDT Station ID: [id number]
--- NOTE | 2020-04-14 09:02 | PROVIDER PROGRESS NOTE ---
Subjective - Prog Note Date Prog Note Date: 04/14/20 - Subjective Subjective: Reports feeling less fatigued today. Denies any dizziness or lightheadedness when ambulating. He continues to have bloody bowel movements. Reports some mild abdominal cramping. Current Medications - Current Medications Current Medications: Active Medications Acetaminophen (Tylenol) 650 mg PO Q4HR PRN PRN Reason: Pain 1 to 4 Last Admin: 04/14/20 05:10 Dose: 650 mg Documented by: Hydrocodone Bitart/Acetaminophen ([place] 5/325) 1 tab PO Q4HR PRN PRN Reason: Pain 5 to 7 Last Admin: 04/14/20 06:39 Dose: 1 tab Documented by: Cholecalciferol (Vitamin D3) 25 mcg PO DAILY [facility] Ferrous Gluconate (Fergon) 324 mg PO BID [facility] Last Admin: 04/13/20 21:10 Dose: 324 mg Documented by: Hydrocortisone (Hydrocortisone) 100 mg LA DAILY PRN PRN Reason: Rectal Discomfort Potassium Chloride/Dextrose/Sod Cl () 1,000 mls @ 40 mls/hr IV .Q25H [facility] Last Infusion: 04/13/20 23:03 Dose: 40 mls/hr Documented by: Ondansetron HCl (Zofran Inj) 4 mg IVP Q6HR PRN PRN Reason: Nausea / Vomiting Oxycodone HCl (Roxicodone) 5 mg PO Q6H [facility] Last Admin: 04/14/20 05:09 Dose: 5 mg Documented by: Pantoprazole Sodium (Protonix) 40 mg PO QDAC [facility] Last Admin: 04/14/20 06:39 Dose: 40 mg Documented by: Patient Own Med ( Mesalamine [Canasa] 1,000 Mg Suppository ) 1,000 each LA QPM [facility] Last Admin: 04/13/20 21:10 Dose: 1,000 each Documented by: Patient Own Med ( Mesalamine [ Mesalamine Dr] 800 Mg) 1 each PO TID [facility] Last Admin: 04/14/20 06:48 Dose: 1 each Documented by: Prednisone (Deltasone) 60 mg PO DAILYWM [facility] Last Admin: 04/13/20 12:47 Dose: Not Given Documented by: Multivit/Folic Acid/Iron (Trinatal Rx 1) 1 tab PO DAILY [facility] Sodium Chloride (Normal Saline Flush 0.9%) 10 ml IVP PRN PRN PRN Reason: NEEDED PER PROVIDER ORDERS Sodium Chloride (Normal Saline Flush 0.9%) 10 ml IVP 0100,0900,1700 SUDARSHAN Last Admin: 04/13/20 23:45 Dose: Not Given Documented by: Zolpidem Tartrate (Ambien) 5 mg PO QPM PRN PRN Reason: Insomnia Last Admin: 04/13/20 22:40 Dose: 5 mg Documented by: Acetaminophen [Tylenol Extra Strength] 500 mg PO PRN PRN 04/01/20 Cholecalciferol (Vitamin D3) [Vitamin D3] 25 mcg PO DAILY 04/01/20 Multivit-Minerals/Folic Acid [Adult One Daily Multivit Tab] 1 tab PO DAILY 04/01/20 [place]-3 Fatty Acids [Fish Oil Concentrate] 1,000 mg PO DAILY 04/01/20 Mesalamine [Canasa] 1,000 mg RC QPM 04/13/20 Mesalamine [Mesalamine Dr] 800 mg PO TID 04/13/20 Objective - Vital Signs/Intake & Output Reviewed Vital Signs: Yes Vital Signs: Vital Signs x48h Temp Pulse BP Pulse Ox 04/14/20 08:00 36.8 C 75 111/66 99 Intake & Output: Intake & Output 04/11/20 04/12/20 04/13/20 04/14/20 23:59 23:59 23:59 23:59 Intake Total 2767.333 Output Total 1550 1075 Balance 1217.333 -1075 - Objective General Appearance: positive: No acute distress, Alert Eyes Bilateral: positive: Normal inspection, Other (Conjunctival pallor) ENT: positive: ENT inspection nml Neck: positive: Nml inspection Respiratory: positive: No respiratory distress. negative: Wheezes, Rales Cardiovascular: positive: Regular rate & rhythm, No murmur. negative: Tach ycardia, Bradycardia, Systolic murmur Abdomen: positive: Non-tender, No distention. negative: Tenderness, Guarding, Rebound Skin: positive: Warm, Dry, Pallor Extremities: positive: Full ROM, No pedal edema Neurologic/Psychiatric: positive: Oriented x3, Motor nml. negative: Disoriented to person, Disoriented to place, Disoriented to time - Lab Results Fish Bones: 04/14/20 08:00 04/14/20 08:00 Other Labs: Lab Results x24hrs 04/14/20 04/14/20 04/13/20 Range/Units 08:00 08:00 14:15 WBC 16.5 H (4.8-10.8) x10^3/uL RBC 2.44 L (4.70-6.10) 10^6/uL Hgb 6.6 L* (14.0-18.0) g/dL Hct 21.6 L (42.0-52.0) % MCV 88.5 (80.0-94.0) fL MCH 27.0 (27.0-31.0) pg MCHC 30.6 L (32.0-36.0) g/dL RDW 14.6 (12.0-15.0) % Plt Count 354 (130-450) 10^3/uL MPV 9.2 (7.4-11.4) fL Neut # (Auto) 11.1 H (1.5-6.6) 10^3/uL Lymph # (Auto) 3.3 (1.5-3.5) 10^3/uL [place] # (Auto) 1.9 H (0.0-1.0) 10^3/uL Eos # (Auto) 0.1 (0.0-0.7) 10^3/uL Baso # (Auto) 0.1 (0.0-0.1) 10^3/uL Absolute Nucleated RBC 0.13 x10^3/uL Nucleated RBC % 0.8 /100WBC Manual Slide Review Sodium 135 (135-145) mmol/L Potassium 3.8 (3.5-5.0) mmol/L Chloride 98 L (101-111) mmol/L Carbon Dioxide 30 (21-32) mmol/L Anion Gap 7.0 (6-13) BUN 21 H (6-20) mg/dL Creatinine 0.9 (0.6-1.2) mg/dL Estimated GFR (MDRD) 97 (>89) Glucose 86 (70-100) mg/dL Calcium 8.5 (8.5-10.3) mg/dL Phosphorus 3.7 (2.5-4.6) mg/dL Magnesium 2.2 (1.7-2.8) mg/dL Total Bilirubin (0.2-1.0) mg/dL AST (10-42) IU/L ALT (10-60) IU/L Alkaline Phosphatase (42-121) IU/L Total Protein (6.7-8.2) g/dL Albumin (3.2-5.5) g/dL Globulin (2.1-4.2) g/dL Albumin/Globulin Ratio (1.0-2.2) Lipase (22-51) U/L Urine Color YELLOW Urine Clarity CLEAR (CLEAR) Urine pH 7.0 (5.0-7.5) PH Ur Specific [place] 1.015 (1.002-1.030) Urine Protein NEGATIVE (NEGATIVE) mg/dL Urine Glucose (UA) NEGATIVE (NEGATIVE) mg/dL Urine Ketones NEGATIVE (NEGATIVE) mg/dL Urine Occult Blood NEGATIVE (NEGATIVE) Urine Nitrite NEGATIVE (NEGATIVE) Urine Bilirubin NEGATIVE (NEGATIVE) Urine Urobilinogen 0.2 (NORMAL) (NORMAL) E.U./dL Ur Leukocyte Esterase NEGATIVE (NEGATIVE) Ur Microscopic Review NOT INDICATED Urine Culture Comments NOT INDICATED Blood Type Antibody Screen Crossmatch IS Only 04/13/20 04/13/20 04/13/20 Range/Units 10:35 10:35 10:35 WBC 26.8 H (4.8-10.8) x10^3/uL RBC 2.36 L (4.70-6.10) 10^6/uL Hgb 6.4 L* (14.0-18.0) g/dL Hct 21.3 L (42.0-52.0) % MCV 90.3 (80.0-94.0) fL MCH 27.1 (27.0-31.0) pg MCHC 30.0 L (32.0-36.0) g/dL RDW 14.3 (12.0-15.0) % Plt Count 500 H (130-450) 10^3/uL MPV 9.4 (7.4-11.4) fL Neut # (Auto) 17.7 H (1.5-6.6) 10^3/uL Lymph # (Auto) 4.9 H (1.5-3.5) 10^3/uL [place] # (Auto) 3.5 H (0.0-1.0) 10^3/uL Eos # (Auto) 0.1 (0.0-0.7) 10^3/uL Baso # (Auto) 0.1 (0.0-0.1) 10^3/uL Absolute Nucleated RBC 0.48 x10^3/uL Nucleated RBC % 1.8 /100WBC Manual Slide Review Indicated Sodium 134 L (135-145) mmol/L Potassium 3.4 L (3.5-5.0) mmol/L Chloride 97 L (101-111) mmol/L Carbon Dioxide 25 (21-32) mmol/L Anion Gap 12.0 (6-13) BUN 24 H (6-20) mg/dL Creatinine 0.9 (0.6-1.2) mg/dL Estimated GFR (MDRD) 97 (>89) Glucose 147 H (70-100) mg/dL Calcium 9.1 (8.5-10.3) mg/dL Phosphorus (2.5-4.6) mg/dL Magnesium (1.7-2.8) mg/dL Total Bilirubin 0.5 (0.2-1.0) mg/dL AST 13 (10-42) IU/L ALT 18 (10-60) IU/L Alkaline Phosphatase 46 (42-121) IU/L Total Protein 6.4 L (6.7-8.2) g/dL Albumin 3.1 L (3.2-5.5) g/dL Globulin 3.3 (2.1-4.2) g/dL Albumin/Globulin Ratio 0.9 L (1.0-2.2) Lipase 19 L (22-51) U/L Urine Color Urine Clarity (CLEAR) Urine pH (5.0-7.5) PH Ur Specific [place] (1.002-1.030) Urine Protein (NEGATIVE) mg/dL Urine Glucose (UA) (NEGATIVE) mg/dL Urine Ketones (NEGATIVE) mg/dL Urine Occult Blood (NEGATIVE) Urine Nitrite (NEGATIVE) Urine Bilirubin (NEGATIVE) Urine Urobilinogen (NORMAL) E.U./dL Ur Leukocyte Esterase (NEGATIVE) Ur Microscopic Review Urine Culture Comments Blood Type O POSITIVE Antibody Screen NEGATIVE Crossmatch IS Only See Detail ABX Reporting Has patient been on IV antibiotics over the past 48 hours?: No Assessment/Plan - Problem List (1) Anemia due to GI blood loss Impression: This is secondary to his severe ulcerative colitis. Hemoglobin 6.4 on admission and this improved to 6.6 after 2 units of packed red blood cell. Suspect his initial hemoglobin was likely quite lower than 6.4 as I believe he may have been hemoconcentrated on admission as his white count and platelets both decreased significantly after transfusion. He still continues to have episodes of bleeding although this has improved. We will transfuse another 2 units of packed red blood cell today. Recheck hemoglobin this evening. SCDs for DVT prophylaxis. (2) Ulcerative colitis Impression: This is the cause of his anemia. This was evident on colonoscopy from most recent admission which showed moderate to severe ulcerative colitis. Unfortunately, despite steroids, he continues to have bleeding and anemia although his bleeding appears to be improving at this time. Continue him on prednisone 60 mg daily. We have also started him on mesalamine and he received the first dose yesterday. General surgery is recommending Remicade but unfortunately cannot be administered by a floor nurse. I spoken with the vat house laborer to see if a [facility] clinic nurse can come to the floor to administer this medication. If this is the case then we will give him a dose of recommended during this hospitalization. Hepatitis panel and QuantiFERON are pending. His chest x-ray was unremarkable. He does have follow-up scheduled with gastroenterology on 18 April. Qualifiers: Ulcerative colitis location: unspecified ulcerative colitis location Digestive disease complication type: with rectal bleeding Qualified Code(s): K51.911 - Ulcerative colitis, unspecified with rectal bleeding (3) Leukocytosis Impression: Suspect this was likely elevated due to hemoconcentration. There has been no evidence of infection at this time. His white count has decreased after receiving 2 units of packed red blood cell and suspect that after another tr ansfusion today, his white count will continue to improve. We will continue to monitor for signs of infection. No indication for antibiotics at this time. (4) Thrombocytosis Impression: This is likely related to hemoconcentration as well as iron deficiency anemia. His platelet count has improved to 300s after receiving 2 units of packed red blood cell yesterday. We will continue to monitor his platelet count.
[2020-04-14] MEDS: SODIUM CHLORIDE FLUSH 0.9% 10 ML SYRINGE IVP SCH ×2 (10:54→21:05)
[2020-04-14] MEDS: D5NS W/20 MEQ KCL 1,000 ML IV SCH (13:40)
--- NOTE | 2020-04-14 14:49 | PROVIDER PROGRESS NOTE ---
Subjective - General Admit Date: 04/13/20 - Review of Systems General: positive: Weakness Gastrointestinal: positive: Other (Continues to have bloody bowel movements with cramping before and after.) Objective - Patient Data Reviewed Vital Signs: Yes Vital Signs: Vital Signs x48h Temp Pulse Pulse Resp BP BP Pulse Ox 04/14/20 14:22 36.9 C 63 14 117/60 04/14/20 13:41 36.9 C 67 14 104/52 L 04/14/20 12:22 36.9 C 63 103/54 L 98 04/14/20 11:55 36.7 C 65 14 99 04/14/20 11:02 36.7 C 65 14 107/59 L 04/14/20 10:43 36.6 C 60 18 111/58 L 04/14/20 08:00 36.8 C 75 111/66 99 Weight: Weight 04/12/20 04/13/20 04/14/20 23:59 23:59 23:59 Weight (kg) 83.9 kg Intake & Output: Intake and Output Totals x24h 04/12/20 04/13/20 04/14/20 23:59 23:59 23:59 Intake Total 2767.333 2415.333 Output Total 1550 1075 Balance 3649.479 4640.333 - Lab Results Lab Results: 04/14/20 08:00 04/14/20 08:00 Other Lab Results: Lab Results x24hrs 04/14/20 04/14/20 04/13/20 Range/Units 08:00 08:00 17:55 WBC 16.5 H (4.8-10.8) x10^3/uL RBC 2.44 L (4.70-6.10) 10^6/uL Hgb 6.6 L* (14.0-18.0) g/dL Hct 21.6 L (42.0-52.0) % MCV 88.5 (80.0-94.0) fL MCH 27.0 (27.0-31.0) pg MCHC 30.6 L (32.0-36.0) g/dL RDW 14.6 (12.0-15.0) % Plt Count 354 (130-450) 10^3/uL MPV 9.2 (7.4-11.4) fL Neut # (Auto) 11.1 H (1.5-6.6) 10^3/uL Lymph # (Auto) 3.3 (1.5-3.5) 10^3/uL [place] # (Auto) 1.9 H (0.0-1.0) 10^3/uL Eos # (Auto) 0.1 (0.0-0.7) 10^3/uL Baso # (Auto) 0.1 (0.0-0.1) 10^3/uL Absolute Nucleated RBC 0.13 x10^3/uL Nucleated RBC % 0.8 /100WBC Sodium 135 (135-145) mmol/L Potassium 3.8 (3.5-5.0) mmol/L Chloride 98 L (101-111) mmol/L Carbon Dioxide 30 (21-32) mmol/L Anion Gap 7.0 (6-13) BUN 21 H (6-20) mg/dL Creatinine 0.9 (0.6-1.2) mg/dL Estimated GFR (MDRD) 97 (>89) Glucose 86 (70-100) mg/dL Calcium 8.5 (8.5-10.3) mg/dL Phosphorus 3.7 (2.5-4.6) mg/dL Magnesium 2.2 (1.7-2.8) mg/dL Urine Color Urine Clarity (CLEAR) Urine pH (5.0-7.5) PH Ur Specific [place] (1.002-1.030) Urine Protein (NEGATIVE) mg/dL Urine Glucose (UA) (NEGATIVE) mg/dL Urine Ketones (NEGATIVE) mg/dL Urine Occult Blood (NEGATIVE) Urine Nitrite (NEGATIVE) Urine Bilirubin (NEGATIVE) Urine Urobilinogen (NORMAL) E.U./dL Ur Leukocyte Esterase (NEGATIVE) Ur Microscopic Review Urine Culture Comments Hep Bs Immunity Index 32 (> OR = 10) mIU/mL Hep B Core Total Ab (NON-REACTIVE) Blood Type Antibody Screen Crossmatch IS Only 04/13/20 04/13/20 04/13/20 Range/Units 17:55 14:15 10:35 WBC (4.8-10.8) x10^3/uL RBC (4.70-6.10) 10^6/uL Hgb (14.0-18.0) g/dL Hct (42.0-52.0) % MCV (80.0-94.0) fL MCH (27.0-31.0) pg MCHC (32.0-36.0) g/dL RDW (12.0-15.0) % Plt Count (130-450) 10^3/uL MPV (7.4-11.4) fL Neut # (Auto) (1.5-6.6) 10^3/uL Lymph # (Auto) (1.5-3.5) 10^3/uL [place] # (Auto) (0.0-1.0) 10^3/uL Eos # (Auto) (0.0-0.7) 10^3/uL Baso # (Auto) (0.0-0.1) 10^3/uL Absolute Nucleated RBC x10^3/uL Nucleated RBC % /100WBC Sodium (135-145) mmol/L Potassium (3.5-5.0) mmol/L Chloride (101-111) mmol/L Carbon Dioxide (21-32) mmol/L Anion Gap (6-13) BUN (6-20) mg/dL Creatinine (0.6-1.2) mg/dL Estimated GFR (MDRD) (>89) Glucose (70-100) mg/dL Calcium (8.5-10.3) mg/dL Phosphorus (2.5-4.6) mg/dL Magnesium (1.7-2.8) mg/dL Urine Color YELLOW Urine Clarity CLEAR (CLEAR) Urine pH 7.0 (5.0-7.5) PH Ur Specific [place] 1.015 (1.002-1.030) Urine Protein NEGATIVE (NEGATIVE) mg/dL Urine Glucose (UA) NEGATIVE (NEGATIVE) mg/dL Urine Ketones NEGATIVE (NEGATIVE) mg/dL Urine Occult Blood NEGATIVE (NEGATIVE) Urine Nitrite NEGATIVE (NEGATIVE) Urine Bilirubin NEGATIVE (NEGATIVE) Urine Urobilinogen 0.2 (NORMAL) (NORMAL) E.U./dL Ur Leukocyte Esterase NEGATIVE (NEGATIVE) Ur Microscopic Review NOT INDICATED Urine Culture Comments NOT INDICATED Hep Bs Immunity Index (> OR = 10) mIU/mL Hep B Core Total Ab NON-REACTIVE (NON-REACTIVE) Blood Type O POSITIVE Antibody Screen NEGATIVE Crossmatch IS Only See Detail - Current Medications Current Medications: Current Medications Generic Name Dose Route Start Last Admin Trade Name Freq PRN Reason Stop Dose Admin Acetaminophen 650 mg 04/13/20 11:35 04/14/20 05:10 Tylenol PO 650 mg Q4HR PRN Administration Pain 1 to 4 Hydrocodone Bitart/Acetaminophen 1 tab 04/13/20 11:35 04/14/20 06:39 [place] 5/325 PO 1 tab Q4HR PRN Administration Pain 5 to 7 Cholecalciferol 25 mcg 04/14/20 09:00 04/14/20 08:38 Vitamin D3 PO 25 mcg DAILY SUDARSHAN Administration Ferrous Gluconate 324 mg 04/13/20 21:00 04/14/20 08:38 Fergon PO 324 mg BID SUDARSHAN Administration Potassium Chloride/Dextrose/Sod Cl 1,000 mls @ 40 mls/hr 04/13/20 12:00 04/14/20 14:26 IV 0 mls/hr .Q25H SUDARSHAN Infusion Oxycodone HCl 5 mg 04/13/20 19:00 04/14/20 13:40 Roxicodone PO 5 mg Q6H SUDARSHAN Administration Pantoprazole Sodium 40 mg 04/14/20 07:00 04/14/20 06:39 Protonix PO 40 mg QDAC SUDARSHAN Administration Patient Own Med ( 1,000 each 04/13/20 21:00 04/13/20 21:10 Mesalamine [Canasa] [place] 1,000 each 1,000 Mg Suppository QPM SUDARSHAN Administration ) Patient Own Med ( 1 each 04/13/20 22:00 04/14/20 13:40 Mesalamine [ PO [address]] 800 TID SUDARSHAN Administration Mg) Prednisone 60 mg 04/13/20 12:00 04/14/20 08:38 Deltasone PO 60 mg DAILYWM SUDARSHAN Administration Multivit/Folic Acid/Iron 1 tab 04/14/20 09:00 04/14/20 08:38 Trinatal Rx 1 PO 1 tab DAILY SUDARSHAN Administration Sodium Chloride 10 ml 04/13/20 17:00 04/14/20 10:54 Normal Saline Flush 0.9% IVP Not Given 0100,0900,1700 SUDARSHAN Zolpidem Tartrate 5 mg 04/13/20 18:08 04/13/20 22:40 Ambien PO 5 mg QPM PRN Administration Insomnia Impression/Plan - Problem List Problem List: Initial diagnosis of ulcerative colitis in the setting of a strong family history. Has not received Remicade due to issues regarding "training for nurses" etc. We will inquire if the patient could go to the MAC for Remicade or if a MAC nurse could come to the floor to administer the drug. The patient continues to bleed and is feeling better after transfusion but symptoms have not changed on high dose steroids. Proceed with plans for Remicade.
[2020-04-14 15:51] LABS: HEPATITIS A IGM NON-REACTIVE (NON-REACTIVE); HEPATITIS B SURFACE ANTIGEN NON-REACTIVE (NON-REACTIVE); HEPATITIS C ANTIBODY NON-REACTIVE (NON-REACTIVE)
[2020-04-14 18:07] LABS: HGB - HEMOGLOBIN 8.6 g/dL (14.0-18.0)
[2020-04-14] MEDS: MESALAMINE 1000 MG PR SCH (21:05)
[2020-04-14] MEDS: ZOLPIDEM 5 MG TABLET PO PRN (22:29)
[2020-04-15] MEDS: SODIUM CHLORIDE FLUSH 0.9% 10 ML SYRINGE IVP SCH ×3 (01:00→15:56)
[2020-04-15] MEDS: oxyCODONE 5 MG TABLET PO SCH ×2 (04:16→07:05)
[2020-04-15] MEDS: D5NS W/20 MEQ KCL 1,000 ML IV SCH (04:16)
[2020-04-15] MEDS: PANTOPRAZOLE 40 MG TABLET PO SCH (06:56)
[2020-04-15] MEDS: HYDROcod/ACETAM 5/325 MG TABLET PO PRN (06:56)
[2020-04-15] MEDS: MESALAMINE 800 MG PO SCH ×2 (06:57→14:39)
[2020-04-15 08:01] LABS: BASOPHILS % (AUTO) 0.3 %; EOSINOPHILS # (AUTO) 0.2 10^3/uL (0.0-0.7); EOSINOPHILS % (AUTO) 1.7 %; HGB - HEMOGLOBIN 8.4 g/dL (14.0-18.0); LYMPHOCYTES # (AUTO) 3.4 10^3/uL (1.5-3.5); MEAN CORPUSCULAR HEMOGLOBIN 28.2 pg (27.0-31.0); MEAN CORPUSCULAR HGB CONC 32.3 g/dL (32.0-36.0); MEAN CORPUSCULAR VOLUME 87.2 fL (80.0-94.0); MEAN PLATELET VOLUME 9.4 fL (7.4-11.4); MONOCYTES # (AUTO) 1.4 10^3/uL (0.0-1.0); MONOCYTES % (AUTO) 13.8 %; NEUTROPHILS % (AUTO) 49.5 %; PLT - PLATELET COUNT 313 10^3/uL (130-450); RED BLOOD COUNT 2.98 10^6/uL (4.70-6.10); RED CELL DISTRIBUTION WIDTH 14.9 % (12.0-15.0)
[2020-04-15 08:12] LABS: CALCIUM 8.3 mg/dL (8.5-10.3); CREATININE 0.9 mg/dL (0.6-1.2); MAGNESIUM 2.3 mg/dL (1.7-2.8); PHOSPHORUS 3.7 mg/dL (2.5-4.6)
[2020-04-15] MEDS: predniSONE 20 MG TABLET PO SCH (08:57)
[2020-04-15] MEDS ORDERED: oxyCODONE 5 MG TABLET PO PRN (09:28)
[2020-04-15] MEDS: CHOLECALCIFEROL 25 MCG TABLET PO SCH (09:43)
[2020-04-15] MEDS: PRENATAL VITAMIN TABLET PO SCH (09:43)
[2020-04-15] MEDS: FERROUS GLUCONATE 324 MG TABLET PO SCH (09:44)
[2020-04-15 13:41] LABS: HGB - HEMOGLOBIN 8.5 g/dL (14.0-18.0)
--- NOTE | 2020-04-15 15:06 | Discharge Plan ---
Discharge Plan Problem Reviewed?: Yes Disposition: Home, Self Care Condition: Stable Prescriptions: Zolpidem [Ambien] 5 mg PO QPM PRN #7 tablet PRN Reason: Insomnia Pantoprazole [Protonix] 40 mg PO QDAC #30 tablet oxyCODONE [Roxicodone] 5 mg PO Q6H PRN #20 tablet PRN Reason: Pain Diet: Soft Activity Restrictions: Activity as Tolerated Health Concerns: You were seen in the hospital because of anemia due to bleeding from the ulcerative colitis. You required a total of 4 blood transfusions. Her hemoglobin has since been stable and a her bleeding has significantly improved. You are now stable for discharge. Please continue the prednisone and mesalamine. Plan of Treatment: Please continue the prednisone and mesalamine. It is important a follow-up with her GI doctor this Monday at 2 PM as scheduled as you may need Remicade. Please also begin taking Protonix 40 mg daily. Assessment: Patient expressed understanding of the treatment plan. Additional Instructions or Follow Up instructions: Follow-up with the GI specialist this Monday at 2 PM in [place]. No Smoking: If you smoke, Please STOP! Call for help. Follow-up with: JANNIE LI ARNP [Primary Care Provider] -
[2020-04-15 15:41] VITALS: BP 111/58
--- NOTE | 2020-04-15 16:00 | DISCHARGE SUMMARY ---
"Discharge Summary Admit Date: 04/13/20 Discharge Date: 04/15/20 Discharging Provider: Santi Jean Primary Care Provider: Karuna Lind Code Status: Attempt Resuscitation Condition at Discharge: Stable Discharge Disposition: 01 Home, Self Care - DIAGNOSES Admission Diagnoses: Nontraumatic hemorrhagic shock Anemia due to gastrointestinal blood loss Ulcerative colitis, severe Insomnia Headaches Prerenal azotemia Hyponatremia Hypokalemia Elevated white blood cell count Discharge Diagnoses with Status of Each Condition: Anemia due to GI blood loss - stable. Ulcerative colitis - stable. Leukocytosis - resolved. Thrombocytosis - resolved. - HPI History of Present Illness: Please refer to H&P from Dr. Christian on 04/13/2020. - CONSULTS | PROCEDURES Consultations: General Surgery - HOSPITAL COURSE Hospital Course: He was admitted to the floor due to anemia secondary to his ulcerative colitis. His hemoglobin was 6.4 on admission his white count was quite elevated over 25,000. This was felt to be hemoconcentration he was given 2 units of packed red blood cell. His hemoglobin only improved to 6.6 but his white count and platelet count decreased. This confirmed our suspicion of hemoconcentration and was felt that his hemoglobin was likely quite lower than 6.4 on admission. He received another 2 units of packed red blood cell with improvement of his hemoglobin to 8.5 where it has remained stable over 24hours. He was continued on oral prednisone and mesalamine during his hospitalization. General surgery was consulted on admission who recommended Remicade for refractory ulcerative colitis. Unfortunately, this was delayed as we need to send out for hepatitis panel and QuantiFERON to rule out latent tuberculosis. This came back the day of discharge and QuantiFERON was negative and his hepatitis panel was unremarkable although hep C was pending. Given his hemoglobin I remained stable and his bleeding had significantly improved, it was felt the patient was stable for discharge on oral prednisone and mesalamine and that he could follow-up with his senior credit officer in 2 days as scheduled to discuss Remicade. I did speak with his senior credit officer who had not yet seen him, Dr. Hardin. He agreed with this plan and stated that he will discuss Remicade on outpatient basis. He recommended starting the patient on Protonix as well prior to discharge. He also felt that the patient may benefit from IV iron infusion but he will set this up on outpatient basis as well. The patient was discharged in a stable condition. I did provide him with 7 tablets of Ambien for his insomnia as well as 20 tablets of oxycodone for abdominal pain. We discussed the importance of returning to the emergency department if he develops any worsening bleeding, lightheadedness, dizziness or any similar symptoms like he had in the past. He is understanding of this. - ALLERGIES Allergies/Adverse Reactions: Allergies Allergy/AdvReac Type Severity Reaction Status Date / Time No Known Drug Allergies Allergy Verified 04/13/20 10:41 - MEDICATIONS Home Medications: Ambulatory Orders Medication Instructions Recorded Confirmed Acetaminophen [Tylenol Extra 500 mg PO PRN PRN 04/01/20 04/13/20 Strength] Cholecalciferol (Vitamin D3) 25 mcg PO DAILY 04/01/20 04/13/20 [Vitamin D3] Multivit-Minerals/Folic Acid 1 tab PO DAILY 04/01/20 04/13/20 [Adult One Daily Multivit Tab] Lev[place]-3 Fatty Acids [Fish Oil 1,000 mg PO DAILY 04/01/20 04/13/20 Concentrate] Ferrous Gluconate 240 mg PO BID #60 tablet 04/05/20 04/13/20 Hydrocortisone [Cortenema] 100 mg RC DAILY PRN #7 ml 04/05/20 04/13/20 predniSONE [Deltasone] 60 mg PO DAILYWM #90 tablet 04/05/20 04/13/20 Mesalamine [Canasa] 1,000 mg RC QPM 04/13/20 04/13/20 Mesalamine [Mesalamine Dr] 800 mg PO TID 04/13/20 04/13/20 Pantoprazole [Protonix] 40 mg PO QDAC #30 tablet 04/15/20 Zolpidem [Ambien] 5 mg PO QPM PRN #7 tablet 04/15/20 oxyCODONE [Roxicodone] 5 mg PO Q6H PRN #20 tablet 04/15/20 - PHYSICAL EXAM AT DISCHARGE General Appearance: positive: No acute distress, Alert Eyes Bilateral: positive: Normal inspection, Conjunctivae nml ENT: positive: ENT inspection nml Neck: positive: Nml inspection Respiratory: positive: No respiratory distress. negative: Wheezes, Rales Cardiovascular: positive: Regular rate & rhythm, No murmur. negative: Tachyca rdia, Bradycardia Abdomen: positive: Non-tender, No distention. negative: Tenderness, Guarding, Rebound Skin: positive: No rash, Warm, Dry Extremities: positive: Full ROM, No pedal edema Neurologic/Psychiatric: positive: Oriented x3, Motor nml. negative: Disoriented to person, Disoriented to place, Disoriented to time Physical Exam Other/Comments: Vital Signs - 24 hr 04/15/20 04/15/20 04/15/20 00:00 08:00 15:40 Temperature 36.7 C 36.7 C 36.9 C Heart Rate [ 61 57 L 57 L Brachial] Respiratory 16 16 16 Rate Blood Pressure 111/58 L [Left Brachial artery] Blood Pressure 106/59 L 118/60 [Right Brachial artery] O2 Saturation 98 98 97 Oxygen O2 Source Room air - LABS Result Diagrams: 04/15/20 13:35 04/15/20 07:31 Other Lab Results: Laboratory Results - last 24 hr 04/13/20 04/13/20 04/14/20 10:35 17:55 18:04 WBC RBC Hgb 8.6 L Hct 27.0 L MCV MCH MCHC RDW Plt Count MPV Neut # (Auto) Lymph # (Auto) [place] # (Auto) Eos # (Auto) Baso # (Auto) Absolute Nucleated RBC Nucleated RBC % Sodium Potassium Chloride Carbon Dioxide Anion Gap BUN Creatinine Estimated GFR (MDRD) Glucose Calcium Phosphorus Magnesium Ref Lab Test Result REPORT Blood Type O POSITIVE Antibody Screen NEGATIVE Crossmatch IS Only See Detail 04/15/20 04/15/20 04/15/20 07:31 07:31 13:35 WBC 10.0 RBC 2.98 L Hgb 8.4 L 8.5 L Hct 26.0 L 26.4 L MCV 87.2 MCH 28.2 MCHC 32.3 RDW 14.9 Plt Count 313 MPV 9.4 Neut # (Auto) 5.0 Lymph # (Auto) 3.4 [place] # (Auto) 1.4 H Eos # (Auto) 0.2 Baso # (Auto) 0.0 Absolute Nucleated RBC 0.04 Nucleated RBC % 0.4 Sodium 136 Potassium 3.5 Chloride 99 L Carbon Dioxide 31 Anion Gap 6.0 BUN 19 Creatinine 0.9 Estimated GFR (MDRD) 97 Glucose 80 Calcium 8.3 L Phosphorus 3.7 Magnesium 2.3 Ref Lab Test Result Blood Type Antibody Screen Crossmatch IS Only - DIAGNOSTIC IMAGING Diagnostic Imaging Results: Final report reviewed - FOLLOW UP Follow Up: Be following up with gastroenterology on April 17 at 2 PM at [facility]. - TIME SPENT Time Spent in Discharge (Minutes): 40"
[2020-04-16 13:06] LABS: HEPATITIS BE ANTIGEN NONREACTIVE
== END 2020-04-15 17:29 | disposition home or self-care (01) | DRG 812 ==
LOC: ED 10:12 → MS2 11:31
PROVIDERS: ADMIT Internal Medicine; ATTEND Internal Medicine
PROC: 30233N1 Transfusion of Nonautologous Red Blood Cells into Peripheral Vein, Percutaneous Approach (ICD-10-PCS; principal; 2020-04-13)
DX: D62 Acute posthemorrhagic anemia (principal); K51.911 Ulcerative colitis, unspecified with rectal bleeding; E87.1 Hypo-osmolality and hyponatremia; D47.3 Essential (hemorrhagic) thrombocythemia; D72.829 Elevated white blood cell count, unspecified; G47.00 Insomnia, unspecified; E87.6 Hypokalemia; R79.89 Other specified abnormal findings of blood chemistry; Z83.79 Family history of other diseases of the digestive system; Z87.891 Personal history of nicotine dependence
CPT/HCPCS: 36415; 71045; 80048; 80053; 80074; 81003; 81599; 83690; 83735; 84100; 85014; 85018; 85025; 86317; 86704; 86707; 86850; 86900; 86901; 86920; 87350; 87522; 96361; 96374; 99284; 99285; A9270; J7512; P9016; 81001; 86803; 87086; 87340

== ENCOUNTER 2020-07-24 08:56 | Outpatient (CLI) | payer OTHER ==
--- NOTE | 2020-07-24 16:34 | Ultrasound Report ---
PROCEDURE: Doppler Limited INDICATIONS: MONDOR'S PHLEBITIS OF THE PENIS TECHNIQUE: Sonographic images of all. Her of the penis intravascular filter were obtained. COMPARISON: None. FINDINGS: There is thrombosis with partial occlusion of the superficial dorsal vein. Artery is patent. IMPRESSION: Thrombosis with partial occlusion of the superficial dorsal vein. Reviewed by: Joselyn Smith MD on 07/24/2020 4:33 PM PST Approved by: Joselyn Smith MD on 07/24/2020 4:33 PM [facility] Station ID: [id number]
== END 2020-07-24 08:57 | disposition home or self-care (01) ==
LOC: DI 08:56
PROVIDERS: ATTEND Nurse Practitioner Family
DX: I82.890 Acute embolism and thrombosis of other specified veins (principal)
CPT/HCPCS: 93976